=== PATIENT | male | born 1945 | race Caucasian/White ===

== ENCOUNTER 2017-07-13 03:07 | Emergency (ER) | payer OTHER ==
[2017-07-13] MEDS ORDERED: ASPIRIN 81 MG CHEWABLE TABLET ONE (04:06)
[2017-07-13 04:26] LABS: Absolute Lymphocytes (CBC) 1.7 K/uL (0.7-4.9); Absolute Monocytes 0.8 K/uL (0.1-1.3); Absolute Neutrophil 5.9 K/uL (1.8-8.0); Basophils % 0.5 % (0-1.3); Hematocrit 46.9 % (39.6-49.0); Lymphocytes % 19.9 % (15.3-44.8); MCH 32.5 pg (27.0-35.0); MCV 96.2 fL (80-100); MPV 9.9 fL (7.6-11.3); Monocytes % 9.1 % (3.3-12.3); RBC Red Blood Cell Count 4.87 M/uL (4.33-5.43)
[2017-07-13 04:34] LABS: Protime INR 0.94
[2017-07-13 04:46] LABS: Potassium 3.7 mEq/L (3.6-5.0)
[2017-07-13 04:53] LABS: Albumin 4.3 g/dL (3.2-5.5); Bilirubin Direct 0.1 mg/dL (0-0.2); Bilirubin Total 0.6 mg/dL (0.3-1.2); Magnesium 2.2 mg/dL (1.8-2.5); Protein, Total 6.8 g/dL (6.0-8.3)
[2017-07-13 04:56] LABS: CKMB Creatine Kinase MB 2.9 ng/ml (0.3-4.0)
--- NOTE | 2017-07-13 06:24 | ER ---
Nurse's Notes [facility] Name: Ranjit Seals Age: 72 yrs Sex: Male : 1945 Arrival Date: 07/13/2017 Time: 03:13 Bed 20 Private MD: Diagnosis: Chest pain Presentation: 07/13 03:31 Presenting complaint: Patient states: he is having chest pain and discomfort since bb approx 2200 last night has past history of [place] and bypass surgery so wanted to get checked out. Transition of care: patient was not received from another setting of care. Onset of symptoms was July 12, 2017. Care prior to arrival: None. 03:31 Method Of Arrival: Ambulatory bb 03:31 Acuity: HAILEY 2 bb Triage Assessment: 06:43 General: Appears in no apparent distress. Behavior is calm, cooperative, appropriate lk1 for age. Pain: Complains of pain in chest. Historical: - Allergies: 03:34 No Known Allergies; bb - Home Meds: 03:34 aspirin 81 mg Oral chew 1 tab once daily [Active]; Crestor oral oral [Active]; bb clopidogrel 75 mg oral tab 1 tab once daily [Active]; - PMHx: 03:34 Myocardial infarction; CAD; bb - PSHx: 03:34 Heart stents; shoulder surgery; Knee surgery; triple bypass; Tonsillectomy; bb - Immunization history:: Adult Immunizations unknown, Flu vaccine is up to date. - Social history:: Smoking status: Patient/guardian denies using tobacco. Screenin:45 Abuse screen: Denies threats or abuse. Denies injuries from another. Nutritional lk1 screening: No deficits noted. Tuberculosis screening: No symptoms or risk factors identified. Fall Risk None identified. Assessment: 03:42 Pain: Complains of pain in diaphragm Pain does not radiate. Pain currently is 7 out of lk1 10 on a pain scale. Quality of pain is described as aching, pressure, Pain began 2-3 days ago. Neuro: Level of Consciousness is awake, alert, obeys commands, Oriented to person, place, time, situation. Cardiovascular: Heart tones S1 S2 present Capillary refill is brisk Patient's skin is warm and dry. Respiratory: Airway is patent Respiratory effort is even, unlabored, Respiratory pattern is regular, symmetrical, Breath sounds are clear bilaterally. GI: Abdomen is non-distended, Bowel sounds present X 4 quads. : No signs and/or symptoms were reported regarding the genitourinary system. EENT: No signs and/or symptoms were reported regarding the EENT system. Derm: No signs and/or symptoms reported regarding the dermatologic system. 04:30 Reassessment: Patient and/or family updated on plan of care and expected duration. Pain lk1 level reassessed. Patient is alert, oriented x 3, equal unlabored respirations, skin warm/dry/pink. Patient states feeling better. Patient states symptoms have improved. Vital Signs: 03:34 BP 173 / 88; Pulse 84; Resp 12 S; Temp 97.7(O); Pulse Ox 98% on R/A; Weight 65.77 kg bb (R); Height 5 ft. 6 in. (167.64 cm) (R); Pain 7/10; 04:00 BP 144 / 74; Pulse 61; Resp 14; Pulse Ox 97% on R/A; lk1 05:00 BP 134 / 83; Pulse 58; Resp 12; Pulse Ox 96% on R/A; lk1 06:00 BP 136 / 73; Pulse 55; Resp 14; Pulse Ox 95% on R/A; lk1 03:34 Body Mass Index 23.40 (65.77 kg, 167.64 cm) bb ED Course: 03:13 Patient arrived in ED. al2 03:31 Andres Layne MD is Attending Physician. pkl 03:32 Triage completed. bb 03:34 Hilary Carranza, RN is Primary Nurse. lk1 03:34 Arm band placed on Patient placed in an exam room, on a stretcher, on air sampling and monitoring, bb on pulse oximetry. EKG completed in triage. Results shown to MD. Family accompanied patient. 03:45 Patient has correct armband on for positive identification. Placed in gown. Bed in low lk1 position. Call light in reach. Side rails up X2. Adult w/ patient. quality assurance monitor on. Pulse ox on. NIBP on. 03:45 Inserted saline lock: 22 gauge in right forearm, using aseptic technique. Patient lk1 maintains SpO2 saturation greater than 95% on room air. 05:30 Assisted to bathroom. lk1 06:42 No provider procedures requiring assistance completed. IV discontinued, intact, lk1 bleeding controlled, No redness/swelling at site. Pressure dressing applied. Administered Medications: 03:45 Drug: Aspirin 162 mg Route: PO; lk1 04:10 Follow up: Response: No adverse reaction lk1 Outcome: 06:24 Discharge ordered by . elliot 06:43 Discharged to home ambulatory, with significant other. lk1 06:43 Condition: good 06:43 Discharge instructions given to patient, significant other, Instructed on discharge instructions, follow up and referral plans. medication usage, safety practices, Demonstrated understanding of instructions, follow-up care, medications. 06:43 Patient left the ED. lk1 Signatures: Andres Layne MD MD pkl Ballard, Brenda, RN RN Hilary Khan RN RN lk1 Radha Stevens
--- NOTE | 2017-07-13 06:25 | EDPHYS ---
Physician Documentation [facility] Name: Ranjit Seals Age: 72 yrs Sex: Male : 1945 Arrival Date: 07/13/2017 Time: 03:13 Bed 20 Private MD: ED Physician Andres Layne HPI: 07/13 03:41 This 72 yrs old Male presents to ER via Ambulatory with complaints of Chest pkl Pain. 03:41 The patient or guardian reports chest pain that is located primarily in the substernal pkl area, epigastric area. Onset: just prior to arrival, 6 hour(s) ago. The pain does not radiate. Associated signs and symptoms: Pertinent positives: diaphoresis. The chest pain is described as a pressure. Historical: - Allergies: 03:34 No Known Allergies; bb - Home Meds: 03:34 aspirin 81 mg Oral chew 1 tab once daily [Active]; Crestor oral oral [Active]; bb clopidogrel 75 mg oral tab 1 tab once daily [Active]; - PMHx: 03:34 Myocardial infarction; CAD; bb - PSHx: 03:34 Heart stents; shoulder surgery; Knee surgery; triple bypass; Tonsillectomy; bb - Immunization history:: Adult Immunizations unknown, Flu vaccine is up to date. - Social history:: Smoking status: Patient/guardian denies using tobacco. ROS: 03:41 Eyes: Negative for injury, pain, redness, and discharge, ENT: Negative for injury, pkl pain, and discharge, Neck: Negative for injury, pain, and swelling. 03:41 Cardiovascular: Positive for chest pain. 03:41 Respiratory: Negative for cough, shortness of breath. 03:41 Abdomen/GI: Negative for nausea, vomiting, and diarrhea. 03:41 Back: Negative for acute changes. 03:41 : Negative for urinary symptoms. 03:41 MS/extremity: Negative for acute changes. 03:41 Skin: Positive for diaphoresis. 03:41 Neuro: Negative for altered mental status. Exam: 03:41 Head/Face: Normocephalic, atraumatic. Eyes: Pupils equal round and reactive to light, pkl extra-ocular motions intact. Lids and lashes normal. Conjunctiva and sclera are non-icteric and not injected. Cornea within normal limits. Periorbital areas with no swelling, redness, or edema. ENT: Nares patent. No nasal discharge, no septal abnormalities noted. Tympanic membranes are normal and external auditory canals are clear. Oropharynx with no redness, swelling, or masses, exudates, or evidence of obstruction, uvula midline. Mucous membranes moist. Neck: Trachea midline, no thyromegaly or masses palpated, and no cervical lymphadenopathy. Supple, full range of motion without nuchal rigidity, or vertebral point tenderness. No Meningismus. Chest/axilla: Normal chest wall appearance and motion. Nontender with no deformity. No lesions are appreciated. Cardiovascular: Regular rate and rhythm with a normal S1 and S2. No gallops, murmurs, or rubs. Normal PMI, no JVD. No pulse deficits. Respiratory: Lungs have equal breath sounds bilaterally, clear to auscultation and percussion. No rales, rhonchi or wheezes noted. No increased work of breathing, no retractions or nasal flaring. Abdomen/GI: Soft, non-tender, with normal bowel sounds. No distension or tympany. No guarding or rebound. No evidence of tenderness throughout. Back: No spinal tenderness. No costovertebral tenderness. Full range of motion. Skin: Warm, dry with normal turgor. Normal color with no rashes, no lesions, and no evidence of cellulitis. MS/ Extremity: Pulses equal, no cyanosis. Neurovascular intact. Full, normal range of motion. Neuro: Awake and alert, GCS 15, oriented to person, place, time, and situation. Cranial nerves II-XII grossly intact. Motor strength 5/5 in all extremities. Sensory grossly intact. Cerebellar exam normal. Normal gait. Vital Signs: 03:34 BP 173 / 88; Pulse 84; Resp 12 S; Temp 97.7(O); Pulse Ox 98% on R/A; Weight 65.77 kg bb (R); Height 5 ft. 6 in. (167.64 cm) (R); Pain 7/10; 04:00 BP 144 / 74; Pulse 61; Resp 14; Pulse Ox 97% on R/A; lk1 05:00 BP 134 / 83; Pulse 58; Resp 12; Pulse Ox 96% on R/A; lk1 06:00 BP 136 / 73; Pulse 55; Resp 14; Pulse Ox 95% on R/A; lk1 03:34 Body Mass Index 23.40 (65.77 kg, 167.64 cm) bb MDM: 03:31 Patient medically screened. pkl 06:23 Data reviewed: vital signs, nurses notes, lab test result(s), EKG, radiologic studies, pkl plain films. 06:24 ED course: Patient feeling better. Asymptomatic. Does not b want to be admitted for pkl further evaluations. Will follow up with Dr. Frank in 2 to 3 days.. 07/13 03:34 Order name: Basic Metabolic Panel [facility] 07/13 03:34 Order name: BNP [facility] 07/13 03:34 Order name: CBC with Diff [facility] 07/13 03:34 Order name: Ckmb [facility] 07/13 03:34 Order name: CPK [facility] 07/13 03:34 Order name: LFT's [facility] 07/13 03:34 Order name: Magnesium [facility] 07/13 03:34 Order name: PT-INR [facility] 07/13 03:34 Order name: Ptt, Activated [facility] 07/13 03:34 Order name: Troponin (emerg Dept Use Only) [facility] 07/13 04:30 Order name: CBC with Automated Diff; Complete Time: 05:36 EDMS 07/13 04:40 Order name: Protime (+INR); Complete Time: 05:36 EDMS 07/13 04:40 Order name: PTT, Activated Partial Thromb; Complete Time: 05:36 EDMS 07/13 04:47 Order name: Basic Metabolic Panel; Complete Time: 05:36 EDMS 07/13 03:34 Order name: XRAY Chest (1 view) [facility] 07/13 03:34 Order name: EKG; Complete Time: 04:05 07/13 03:34 Order name: Cardiac monitoring; Complete Time: 03:46 [facility] 07/13 03:34 Order name: EKG - Nurse/Tech; Complete Time: 03:46 [facility] 07/13 03:34 Order name: IV Saline Lock; Complete Time: 03:46 07/13 03:34 Order name: Labs collected and sent; Complete Time: 03:46 [facility] 07/13 04:47 Order name: Troponin (Emerg Dept Use Only); Complete Time: 05:36 EDMS 07/13 04:53 Order name: Liver (Hepatic) Function; Complete Time: 05:36 EDMS 07/13 04:53 Order name: Creatine Phosphokinase; Complete Time: 05:36 EDMS 07/13 04:53 Order name: Magnesium; Complete Time: 05:36 EDMS 07/13 04:56 Order name: CKMB Creatine Kinase MB; Complete Time: 05:36 EDMS 07/13 05:11 Order name: BNP B-Type Natriuretic Peptide; Complete Time: 05:36 EDMS 07/13 05:40 Order name: EKG; Complete Time: 05:41 pkl 07/13 05:40 Order name: Troponin (emerg Dept Use Only) pkl 07/13 06:19 Order name: Troponin (Emerg Dept Use Only); Complete Time: 06:21 EDMS 07/13 03:34 Order name: O2 Per Protocol; Complete Time: 03:46 lk1 07/13 03:34 Order name: O2 Sat Monitoring; Complete Time: 03:46 lk1 Administered Medications: 03:45 Drug: Aspirin 162 mg Route: PO; lk1 04:10 Follow up: Response: No adverse reaction lk1 Disposition: 07/13/17 06:24 Discharged to Home. Impression: Chest pain. - Condition is Stable. - Medication Reconciliation Form, Thank You Letter, Antibiotic Education, Prescription Opioid Use form. - Follow up: Private Physician; When: 2 - 3 days; Reason: Re-evaluation by your physician. - Problem is new. - Symptoms are resolved. Signatures: Dispatcher [employer] [facility] Andres Layne MD MD pkl Ballard, Brenda, RN RN bb Kluge, Leah, RN RN lk1
[2017-07-13 07:01] VITALS: TEMP 97.7
[2017-07-13 07:04] VITALS: BP 136/73; O2SAT 95
--- NOTE | 2017-07-13 08:09 | EKG ---
Test Date: 2017-07-13 Test Time: 03:24:21 [employer]: JOY MEASUREMENT RESULTS: Intervals: Rate: 81 CO: 204 QRSD: 108 QT: 390 QTc: 453 [place]: P: 65 CO: 204 QRS: -21 T: 102 INTERPRETIVE STATEMENTS: Normal sinus rhythm T wave abnormality, consider lateral ischemia Abnormal ECG Compared to ECG 06/30/2013 07:38:12 T-wave abnormality now present Possible ischemia now present Myocardial infarct finding no longer present Electronically Signed On 07-13-17 08:08:18 CDT by Irvin Vázquez
--- NOTE | 2017-07-29 11:28 | RAD REPORT ---
EXAM DESCRIPTION: RAD - Chest Single View - 07/16/2017 12:20 pm CLINICAL HISTORY: Chest pain. COMPARISON: 10/19/2013 FINDINGS: Portable technique limits examination quality. The lungs are grossly clear. The heart is upper limit normal in size with changes of a prior CABG not ed. No displaced fractures.Evidence of previous right rotator cuff repair. IMPRESSION: No acute intrathoracic process suspected.
== END 2017-07-13 06:43 | disposition home or self-care (01) ==
LOC: ER 03:07
DX: R07.9 Chest pain, unspecified (principal); I25.2 Old myocardial infarction; I25.10 Atherosclerotic heart disease of native coronary artery without angina pectoris; Z95.818 Presence of other cardiac implants and grafts; Z79.82 Long term (current) use of aspirin
CPT/HCPCS: 36415; 71045; 80048; 80076; 82550; 82553; 83735; 83880; 84484; 85025; 85610; 85730; 93005; 99285

== ENCOUNTER 2018-01-30 06:22 | Day surgery (SDC) | payer OTHER ==
[2018-01-29 10:54] LABS: Absolute Lymphocytes (CBC) 1.3 K/uL (0.7-4.9); Absolute Monocytes 0.7 K/uL (0.1-1.3); Absolute Neutrophil 7.5 K/uL (1.8-8.0); Basophils % 0.4 % (0-1.3); Eosinophils % 1.7 % (0-4.4); Hematocrit 49.9 % (39.6-49.0); Lymphocytes % 13.1 % (15.3-44.8); MCH 33.8 pg (27.0-35.0); MCV 96.3 fL (80-100); MPV 9.6 fL (7.6-11.3); RBC Red Blood Cell Count 5.17 M/uL (4.33-5.43)
[2018-01-29 11:10] LABS: Protime INR 1.01
[2018-01-29 11:12] LABS: Potassium 4.1 mmol/L (3.5-5.1)
--- NOTE | 2018-01-29 11:41 | RAD REPORT ---
EXAM DESCRIPTION: RAD - Chest Pa And Lat (2 Views) - 01/29/2018 10:47 am CLINICAL HISTORY: Preop chest, pending cardiac catheterization COMPARISON: June 2017 TECHNIQUE: PA and lateral views of the chest were obtained. FINDINGS: The lungs are clear. Scarring changes are present along the left heart border related to prior bypass. Sternotomy wires are in place. Heart size is normal and central vasculature is within n ormal limits. No pleural effusion or pneumothorax seen. No acute bony finding noted. No aortic abn ormality. IMPRESSION: No acute cardiopulmonary process. No significant interval changes.
--- OUTSIDE RECORDS SUMMARY | 2018-01-30 06:24 | XMS REPORT | Clinical Summary ---
:1945 Author Organization [facility] Address [address] [place] [address] Phone Care Team Providers Name Role Phone Unavailable Primary Care Provider Unavailable Allergies No Known Allergies Current Medications Not on file Active Problems Not on file Social History Tobacco Use Types Packs/Day Years Used Date Never Assessed Sex Assigned at Date Recorded Not on file Last Filed Vital Signs Not on file Plan of Treatment Not on file Results Not on fileafter 01/29/2017
[2018-01-30] MEDS ORDERED: NA CHLORIDE 0.9% 500 ML ONE (06:37)
[2018-01-30] MEDS ORDERED: LIDOCAINE 1% MPF 30 ML VIAL ONE (06:37)
[2018-01-30] MEDS ORDERED: HEPA 1000U/500MLS 2,000 UNIT/1,000 ML BAG IV ONE (06:37)
[2018-01-30] MEDS ORDERED: NA CHLORIDE 0.9% 0 ML ONE (07:33)
[2018-01-30] MEDS ORDERED: MIDAZOLAM HCL 2 MG/2 ML INJ ONE (07:33)
[2018-01-30] MEDS ORDERED: FENTANYL CITR 100 MCG/2 ML ONE (07:33)
[2018-01-30] MEDS ORDERED: ATROPINE SULF 1 MG/10 ML SYR IV ONE (07:33)
[2018-01-30 12:40] VITALS: O2SAT 98
--- NOTE | 2018-01-30 13:16 | OP ---
Surgeon: Jesu Frank MD Mica Machine Operator: Addis Linton. Indications: Mr. Seals is a patient of 72 years old admitted because of unstable angina and recent abnormal stress test. Has a history of bypass, status post LOREDO to the LAD, vein graft to the OM an d the PDA off the RCA. He was admitted as an outpatient to the laborer livestock, prepped and draped in the r outine sterile fashion. Procedures Performed: Left heart catheterization selective coronary arteriogram, vein graft injectio n, LOREDO injection, aortic root injection. Procedure In Detail: The patient was prepped and draped in the routine sterile fashion. Given 2 mg of Versed for IV sedation. 6-Micronesian sheath introduced in the right common femoral artery. StarClose was used to close the case. 6-Micronesian catheters were used to do the diagnostic catheterization. The patient was found to have a 40% proximal LAD and total occlusion of the circumflex from the ostium. He had a total occlusion of his RCA proximally. Aortic root was done to locate the graft after mult iple attempts to cannulate the graft. The aortic root was normal. There was evidence of an RCA anastasiia t that was eventually cannulated with a 3DRC and was small, but was patent. His OM graft was occlude d. The LOREDO to the LAD was patent. There were no complications. Blood Loss: 5 cc. Postoperative Diagnosis: Severe coronary artery disease. Plan: Medical therapy. I am going to add Imdur to his regimen. NATHALIE/MORENITA Voice ID: [id number] Report ID: [id number]
[2018-01-30 14:50] VITALS: BP 120/78; TEMP 98
== END 2018-01-30 14:40 | disposition home or self-care (01) ==
LOC: CCL 06:22
DX: I25.110 Atherosclerotic heart disease of native coronary artery with unstable angina pectoris (principal); I25.700 Atherosclerosis of coronary artery bypass graft(s), unspecified, with unstable angina pectoris; I25.82 Chronic total occlusion of coronary artery; I25.5 Ischemic cardiomyopathy; I65.8 Occlusion and stenosis of other precerebral arteries; I10 Essential (primary) hypertension; E78.6 Lipoprotein deficiency; E11.9 Type 2 diabetes mellitus without complications; K21.9 Gastro-esophageal reflux disease without esophagitis; Z95.5 Presence of coronary angioplasty implant and graft; Z82.49 Family history of ischemic heart disease and other diseases of the circulatory system
CPT/HCPCS: 36415; 71046; 80048; 82962 ×2; 85025; 85610; 85730; 93455; 93567; C1760; C1893; J2250; J3010; 93454; J0583

== ENCOUNTER 2018-11-14 18:51 | Emergency (ER) | payer OTHER ==
--- OUTSIDE RECORDS SUMMARY | 2018-11-14 18:52 | XMS REPORT | Clinical Summary ---
:1945 Author Organization [facility] Address [address] [place] [address] Care Team Providers Name Role Phone Unavailable Primary Care Provider Unavailable Allergies No Known Allergies Medications Not on file Active Problems Not on file Social History Tobacco Use Types Packs/Day Years Used Date Never Assessed Sex Assigned at Date Recorded Not on file Job Start Date Occupation Industry Not on file Not on file Not on file Travel History Travel Start Travel End No recent travel history available. Last Filed Vital Signs Not on file Plan of Treatment Not on file Results Not on fileafter 11/13/2017 Insurance Payer Benefit Plan / Subscriber ID Type Phone Address Group [employer] - MEDICARE A[employer] MEDICARE O xxxxxxxx [phone] [address] [place] [id number]
[2018-11-14] MEDS ORDERED: METHYLPREDNISOLONE 125 MG INJ ONE (19:16)
[2018-11-14] MEDS ORDERED: NA CHLORIDE 0.9% 500 ML ONE (19:16)
[2018-11-14] MEDS ORDERED: FAMOTIDINE 20 MG/2 ML VIAL IV ONE (19:17)
--- NOTE | 2018-11-14 20:07 | ER ---
Nurse's Notes [facility] Name: Ranjit Seals Age: 73 yrs Sex: Male : 1945 Arrival Date: 11/14/2018 Time: 18:52 Bed 18 Private MD: Megan Sumner H Diagnosis: Bee allergy status;Urticaria Presentation: 11/14 18:57 Presenting complaint: Patient states: "I was mowing the yard and I got stung by bees". aa5 Hives noted to chest, back, and left axillae. 18:57 Acuity: HAILEY 3 aa5 19:02 Transition of care: patient was not received from another setting of care. Onset: The tw2 symptoms/episode began/occurred acutely. Anaphylaxis evaluation, the patient reports or I have noted the following symptoms which indicate a significant risk of anaphylaxis: angioedema shortness of breath. Onset of symptoms was November 14, 2018. Risk Assessment: Do you want to hurt yourself or someone else? Patient reports no desire to harm self or others. 19:02 Method Of Arrival: Ambulatory tw2 19:05 Care prior to arrival: Medication(s) given: benadryl 100 mg. rr5 19:05 Initial Sepsis Screen: Does the patient meet any 2 criteria? No. Patient's initial rr5 sepsis screen is negative. Does the patient have a suspected source of infection? No. Patient's initial sepsis screen is negative. Historical: - Allergies: 19:01 No Known Allergies; tw2 - Home Meds: 19:01 Crestor Oral [Active]; clopidogrel 75 mg Oral tab 1 tab once daily [Active]; aspirin 81 tw2 mg Oral chew 1 tab once daily [Active]; 19:23 isosorbide dinitrate 20 mg Oral tab [Active]; potassium chloride 20 mEq Oral TbTQ rr5 [Active]; furosemide 40 mg Oral tab [Active]; rosuvastatin oral oral [Active]; Prevacid Oral [Active]; Metformin Oral [Active]; glimepiride 2 mg Oral tab [Active]; - PMHx: 19:01 CAD; Myocardial infarction; tw2 19:23 Diabetes - NIDDM; rr5 - PSHx: 19:01 shoulder surgery; Knee surgery; triple bypass; Heart stents; Tonsillectomy; tw2 - Immunization history:: Adult Immunizations. - Social history:: Smoking status: . - Ebola Screening: : Patient denies travel to an Ebola-affected area in the 21 days before illness onset. Screenin:54 Abuse screen: Denies threats or abuse. Nutritional screening: No deficits noted. tw2 Tuberculosis screening: No symptoms or risk factors identified. Fall Risk Secondary diagnosis (15 points) impaired mobility. Assessment: 19:05 General: Appears in no apparent distress. comfortable, Behavior is calm, cooperative, rr5 appropriate for age. Pain: Complains of pain in head Pain does not radiate. Pain currently is 4 out of 10 on a pain scale. Quality of pain is described as aching, Pain began gradually, Is intermittent. Neuro: Level of Consciousness is awake, alert, obeys commands, Oriented to person, place, time, situation, Appropriate for age. Cardiovascular: Capillary refill < 3 seconds Patient's skin is warm and dry. Respiratory: Reports like a lump in my thorat Airway is patent Respiratory effort is even, unlabored, Respiratory pattern is regular, symmetrical, Breath sounds are clear Denies shortness of breath. GI: Abdomen is flat, non-distended. : No signs and/or symptoms were reported regarding the genitourinary system. EENT: No signs and/or symptoms were reported regarding the EENT system. Derm: Rash noted that is on back, chest and abdomen hives. Musculoskeletal: Circulation, motion, and sensation intact. Capillary refill < 3 seconds, Range of motion: intact in all extremities. 19:50 Reassessment: Patient appears in no apparent distress at this time. Patient and/or rr5 family updated on plan of care and expected duration. Pain level reassessed. Patient is alert, oriented x 3, equal unlabored respirations, skin warm/dry/pink. 20:20 Reassessment: Patient appears in no apparent distress at this time. Patient is alert, rr5 oriented x 3, equal unlabored respirations, skin warm/dry/pink. discharge instruction given and explained without complaints made. hives subsided. Patient states feeling better. Patient states symptoms have improved. Vital Signs: 18:57 Pulse Ox 96% on R/A; aa5 19:05 BP 153 / 102; Pulse 81; Resp 18; Temp 98.2; Pulse Ox 98% ; Weight 63.5 kg; Height 5 ft. rr5 7 in. (170.18 cm); 19:05 Pain 4/10; rr5 20:20 BP 141 / 82; Pulse 80; Resp 16; Temp 98.5; Pulse Ox 99% on R/A; rr5 19:05 Body Mass Index 21.93 (63.50 kg, 170.18 cm) rr5 ED Course: 18:52 Patient arrived in ED. rg4 18:52 Megan Sumner DO is Private Physician. rg4 18:54 Yvonne Tavares FNP-C is [facility]. kb 18:54 Christiano Miramontes MD is Attending Physician. kb 18:55 Bed in low position. Call light in reach. Adult w/ patient. tw2 18:57 Triage completed. aa5 18:57 Arm band placed on Patient placed in an exam room, on a stretcher. aa5 19:03 Mike Hui, RN is Primary Nurse. rr5 19:10 Inserted saline lock: 20 gauge in right forearm, using aseptic technique. ag4 20:26 No provider procedures requiring assistance completed. IV discontinued, intact, rr5 bleeding controlled, No redness/swelling at site. Pressure dressing applied. Administered Medications: 19:10 Drug: NS 0.9% 500 ml Route: IV; Rate: bolus; Site: right forearm; rr5 20:10 Follow up: Response: No adverse reaction; IV Status: Completed infusion; IV Intake: rr5 500ml 19:11 Drug: Pepcid 20 mg Route: IVP; Site: right forearm; rr5 20:15 Follow up: Response: No adverse reaction rr5 19:12 Drug: SOLU-Medrol 125 mg Route: IVP; Site: right forearm; rr5 20:15 Follow up: Response: No adverse reaction rr5 Intake: 20:10 IV: 500ml; Total: 500ml. rr5 Outcome: 20:06 Discharge ordered by . kb 20:26 Discharged to home ambulatory, with family. rr5 20:26 Condition: stable 20:26 Discharge instructions given to patient, Instructed on discharge instructions, follow up and referral plans. medication usage, Demonstrated understanding of instructions, follow-up care, medications, Prescriptions given X 2. 20:29 Patient left the ED. rr5 Signatures: Yvonne Tavares FNP-C FNP-Ckb Calderon, Selina, RN RN aa5 Tania Kumar, RN RN tw2 Noris Chan rg4 Mike Hui, RN RN rr5 Alexei, Chase ag4
--- NOTE | 2018-11-14 20:07 | EDPHYS ---
Physician Documentation [facility] Name: Ranjit Seals Age: 73 yrs Sex: Male : 1945 Arrival Date: 11/14/2018 Time: 18:52 Bed 18 Private MD: Megan Sumner H ED Physician Christiano Miramontes HPI: 11/14 18:58 This 73 yrs old Male presents to ER via Unassigned with complaints of Bee kb Sting. 19:01 The patient presents with rash, of the back, shortness of breath, bee stings. Onset: kb The symptoms/episode began/occurred just prior to arrival. Associated signs and symptoms: Pertinent positives: hives, rash, shortness of breath. Possible causes: bees. At home the patient or guardian has treated the symptoms with Benadryl. Severity of symptoms: At their worst the symptoms were moderate in the emergency department the symptoms have improved. The patient has not experienced similar symptoms in the past. The patient has not recently seen a physician. Pt reports he was mowing someone's yard and bees came out of a tree and stung him multiple times. . Historical: - Allergies: 19:01 No Known Allergies; tw2 - Home Meds: 19:01 Crestor Oral [Active]; clopidogrel 75 mg Oral tab 1 tab once daily [Active]; aspirin 81 tw2 mg Oral chew 1 tab once daily [Active]; 19:23 isosorbide dinitrate 20 mg Oral tab [Active]; potassium chloride 20 mEq Oral TbTQ rr5 [Active]; furosemide 40 mg Oral tab [Active]; rosuvastatin oral oral [Active]; Prevacid Oral [Active]; Metformin Oral [Active]; glimepiride 2 mg Oral tab [Active]; - PMHx: 19:01 CAD; Myocardial infarction; tw2 19:23 Diabetes - NIDDM; rr5 - PSHx: 19:01 shoulder surgery; Knee surgery; triple bypass; Heart stents; Tonsillectomy; tw2 - Immunization history:: Adult Immunizations. - Social history:: Smoking status: . - Ebola Screening: : Patient denies travel to an Ebola-affected area in the 21 days before illness onset. ROS: 19:00 Constitutional: Negative for fever, chills, and weight loss, Cardiovascular: Negative kb for chest pain, palpitations, and edema, Abdomen/GI: Negative for abdominal pain, nausea, vomiting, diarrhea, and constipation, Back: Negative for injury and pain, MS/Extremity: Negative for injury and deformity, Neuro: Negative for headache, weakness, numbness, tingling, and seizure. 19:00 Respiratory: Positive for shortness of breath. 19:00 Skin: Positive for rash. Exam: 18:59 Constitutional: This is a well developed, well nourished patient who is awake, alert, kb and in no acute distress. Head/Face: Normocephalic, atraumatic. ENT: Nares patent. No nasal discharge, no septal abnormalities noted. Tympanic membranes are normal and external auditory canals are clear. Oropharynx with no redness, swelling, or masses, exudates, or evidence of obstruction, uvula midline. Mucous membranes moist. Neck: Trachea midline, no thyromegaly or masses palpated, and no cervical lymphadenopathy. Supple, full range of motion without nuchal rigidity, or vertebral point tenderness. No Meningismus. Chest/axilla: Normal chest wall appearance and motion. Nontender with no deformity. No lesions are appreciated. Cardiovascular: Regular rate and rhythm with a normal S1 and S2. No gallops, murmurs, or rubs. Normal PMI, no JVD. No pulse deficits. Respiratory: Lungs have equal breath sounds bilaterally, clear to auscultation and percussion. No rales, rhonchi or wheezes noted. No increased work of breathing, no retractions or nasal flaring. Abdomen/GI: Soft, non-tender, with normal bowel sounds. No distension or tympany. No guarding or rebound. No evidence of tenderness throughout. MS/ Extremity: Pulses equal, no cyanosis. Neurovascular intact. Full, normal range of motion. Neuro: Awake and alert, GCS 15, oriented to person, place, time, and situation. Cranial nerves II-XII grossly intact. Motor strength 5/5 in all extremities. Sensory grossly intact. Cerebellar exam normal. Normal gait. 18:59 Skin: consistent with urticaria, on the back. Vital Signs: 18:57 Pulse Ox 96% on R/A; aa5 19:05 BP 153 / 102; Pulse 81; Resp 18; Temp 98.2; Pulse Ox 98% ; Weight 63.5 kg; Height 5 ft. rr5 7 in. (170.18 cm); 19:05 Pain 4/10; rr5 20:20 BP 141 / 82; Pulse 80; Resp 16; Temp 98.5; Pulse Ox 99% on R/A; rr5 19:05 Body Mass Index 21.93 (63.50 kg, 170.18 cm) rr5 MDM: 18:54 Patient medically screened. kb 18:59 Data reviewed: vital signs, nurses notes. Data interpreted: Pulse oximetry: on room air kb is 96 %. Interpretation: normal. 20:05 Counseling: I had a detailed discussion with the patient and/or guardian regarding: the kb historical points, exam findings, and any diagnostic results supporting the discharge/admit diagnosis, the need for outpatient follow up, a family practitioner, to return to the emergency department if symptoms worsen or persist or if there are any questions or concerns that arise at home. ED course: symptoms resolved after treatment. No resp distress or complaints. Hives resolved. 11/14 18:58 Order name: IV Start; Complete Time: 19:10 kb Administered Medications: 19:10 Drug: NS 0.9% 500 ml Route: IV; Rate: bolus; Site: right forearm; rr5 20:10 Follow up: Response: No adverse reaction; IV Status: Completed infusion; IV Intake: rr5 500ml 19:11 Drug: Pepcid 20 mg Route: IVP; Site: right forearm; rr5 20:15 Follow up: Response: No adverse reaction rr5 19:12 Drug: SOLU-Medrol 125 mg Route: IVP; Site: right forearm; rr5 20:15 Follow up: Response: No adverse reaction rr5 Disposition: 11/15 18:48 Co-signature as Attending Physician, Christiano Miramontes MD. Disposition: 11/14/18 20:06 Discharged to Home. Impression: Bee allergy status, Urticaria. - Condition is Stable. - Discharge Instructions: Bee, Wasp, or Hornet Sting, Adult, Hives, [id number]. - Prescriptions for Pepcid 20 mg Oral Tablet - take 1 tablet by ORAL route every 12 hours for 5 days; 10 tablet. Prednisone 20 mg Oral Tablet - take 1 tablet by ORAL route once daily for 5 days; 5 tablet. - Medication Reconciliation Form, Thank You Letter, Antibiotic Education, Prescription Opioid Use form. - Follow up: Emergency Department; When: As needed; Reason: Worsening of condition. Follow up: Private Physician; When: 2 - 3 days; Reason: Recheck today's complaints, Continuance of care, Re-evaluation by your physician. Signatures: Yvonne Tavares, JOSE ALFREDO-C PROPERTY CONSULTANT-Tania Longoria RN RN tw2 Christiano Miramontes MD MD gs Mike Hui RN RN rr5 Corrections: (The following items were deleted from the chart) 11/14 20:29 20:06 11/14/2018 20:06 Discharged to Home. Impression: Bee allergy status; Urticaria. rr5 Condition is Stable. Forms are Medication Reconciliation Form, Thank You Letter, Antibiotic Education, Prescription Opioid Use. Follow up: Emergency Department; When: As needed; Reason: Worsening of condition. Follow up: Private Physician; When: 2 - 3 days; Reason: Recheck today's complaints, Continuance of care, Re-evaluation by your physician. kb
[2018-11-14 22:37] VITALS: BP 141/82; TEMP 98.5; O2SAT 99
== END 2018-11-14 20:29 | disposition home or self-care (01) ==
LOC: ER 18:51
DX: L50.9 Urticaria, unspecified (principal); W57.XXXA Bitten or stung by nonvenomous insect and other nonvenomous arthropods, initial encounter; Y93.89 Activity, other specified; Y92.89 Other specified places as the place of occurrence of the external cause; Z91.030 Bee allergy status
CPT/HCPCS: 96361; 96375; 96374; 99283; J2930

== ENCOUNTER 2019-05-19 04:09 | Observation (INO) | payer OTHER ==
[2019-05-19] MEDS ORDERED: METRONIDAZOLE 500mg IVPB 500 MG/100 ML BAG IV ONE (04:48)
[2019-05-19] MEDS ORDERED: NA CHLORIDE 0.9% 250 ML ONE (04:48)
[2019-05-19] MEDS ORDERED: PANTOPRAZOLE 40 MG INJ ONE (04:48)
[2019-05-19] MEDS ORDERED: CIPROFLOXACIN 400mg IV 400 MG/200 ML BAG IV ONE (04:48)
[2019-05-19] MEDS ORDERED: NA CHLORIDE 0.9% 1,000 ML ONE (04:49)
--- NOTE | 2019-05-19 05:12 | ER ---
Nurse's Notes [facility] Name: Ranjit Seals Age: 74 yrs Sex: Male : 1945 Arrival Date: 05/19/2019 Time: 04:12 Bed 6 Private MD: Megan Sumner H Diagnosis: Gastrointestinal hemorrhage, unspecified-lower ;Abdominal tenderness;Type 2 diabetes mellitus;Diverticular disease of intestine;Diverticulosis of large intestine without perforation or abscess without bleeding Presentation: 05/19 04:29 Presenting complaint: Patient states: restroom yesterday evening 2030 had a loose stool dm5 with bright red blood, had 3 additional episodes of loose stool with increasing blood, burning in rectal area with abdominal pain rated at 5/10 at this time. Transition of care: patient was not received from another setting of care. Onset of symptoms was May 18, 2019. Initial Sepsis Screen: Does the patient meet any 2 criteria? No. Patient's initial sepsis screen is negative. Does the patient have a suspected source of infection? Yes: Acute abdominal pain. 04:29 Method Of Arrival: Ambulatory dm5 04:29 Acuity: HAILEY 3 dm5 05:00 Risk Assessment: Do you want to hurt yourself or someone else?. Care prior to arrival: ea None. Historical: - Allergies: 04:32 No Known Allergies; dm5 - PMHx: 04:32 CAD; Diabetes - NIDDM; Myocardial infarction; High Cholesterol; Hypertension; dm5 - PSHx: 04:32 Knee surgery; shoulder surgery; triple bypass; dm5 - Immunization history:: Adult Immunizations up to date. - Social history:: Smoking status: Patient denies any tobacco usage or history of. - Family history:: not pertinent. - Ebola Screening: : No symptoms or risks identified at this time. Screenin:35 Abuse screen: Denies threats or abuse. Nutritional screening: No deficits noted. ea Tuberculosis screening: No symptoms or risk factors identified. Fall Risk IV access (20 points). Assessment: 05:00 General: Appears in no apparent distress. Behavior is appropriate for age. Pain: ea Complains of pain in left lower quadrant and right lower quadrant. Neuro: Level of Consciousness is awake, alert, obeys commands, Oriented to person, place, time, situation. Cardiovascular: Patient's skin is warm and dry. Respiratory: Airway is patent Respiratory effort is even, unlabored, Respiratory pattern is regular, symmetrical. GI: Abdomen is non-distended, Bowel sounds present X 4 quads. Derm: Skin is pink, warm \\T\\ dry. 06:15 Reassessment: Patient and/or family updated on plan of care and expected duration. Pain ea level reassessed. Patient is alert, oriented x 3, equal unlabored respirations, skin warm/dry/pink. Pt taken to CT. 07:00 General: Appears in no apparent distress. Behavior is calm, cooperative. Neuro: Level rb1 of Consciousness is awake, alert, obeys commands, Oriented to person, place, time, situation. Respiratory: Airway is patent Respiratory effort is even, unlabored, Respiratory pattern is regular, symmetrical. Derm: Skin is pink, warm \\T\\ dry. 08:00 Reassessment: Patient appears in no apparent distress at this time. No changes from rb1 previously documented assessment. 09:00 Reassessment: Patient appears in no apparent distress at this time. Patient and/or rb1 family updated on plan of care and expected duration. Pain level reassessed. Patient is alert, oriented x 3, equal unlabored respirations, skin warm/dry/pink. 09:55 Reassessment: Patient appears in no apparent distress at this time. No changes from rb1 previously documented assessment. 10:01 Reassessment: Unable to give report at this time, Elisa, Portable Grinding Machine Operator stated, "The rb1 nurse is discharging a pt., can we give her five minutes.". 10:16 Reassessment: Called report to JEREMIE Guerin. Information from the SB[facility] was given. All rb1 questions asked and answered. Vital Signs: 04:32 BP 175 / 102; Pulse 75; Resp 18; Temp 97.7; Pulse Ox 100% on R/A; Weight 63.5 kg; dm5 Height 5 ft. 7 in. (170.18 cm); Pain 5/10; 05:00 BP 165 / 92; Pulse 73; Resp 18; Pulse Ox 100% on R/A; ea 06:00 BP 160 / 90; Pulse 80; Resp 18; Temp 97.8; Pulse Ox 100% ; ea 07:00 BP 152 / 83; Pulse 71; Resp 19; Pulse Ox 99% on R/A; rb1 08:00 BP 133 / 84; Pulse 75; Resp 17; Pulse Ox 100% on R/A; rb1 09:57 BP 120 / 72; Pulse 75; Resp 17; Pulse Ox 99% on R/A; rb1 04:32 Body Mass Index 21.93 (63.50 kg, 170.18 cm) dm5 ED Course: 04:12 Patient arrived in ED. es 04:13 Megan Sumner DO is Private Physician. es 04:29 Hans Fuller MD is Attending Physician. zabrina 04:31 Triage completed. dm5 04:32 Arm band placed on Patient placed in an exam room. dm5 04:42 Cheli Orantes RN is Primary Nurse. ea 04:53 XRAY Chest (1 view) In Process Unspecified. EDMS 05:00 Patient has correct armband on for positive identification. Placed in gown. Bed in low ea position. Call light in reach. Side rails up X2. 05:10 Shavonne Ramon MD is Hospitalizing Provider. zabrina 05:15 Inserted saline lock: 20 gauge in right forearm, using aseptic technique. Blood ea collected. 05:25 Radiology exam delayed due to Dropped off oral contrast for CT exam at 0445 but patient kw1 did not finish until 0515. 06:16 No provider procedures requiring assistance completed. Patient admitted, IV remains in ea place. Administered Medications: 05:20 Drug: NS 0.9% 500 ml Route: IV; Rate: bolus; Site: right forearm; ea 06:02 Follow up: Response: No adverse reaction; IV Status: Completed infusion ea 05:20 Drug: ProTONIX 40 mg Route: IVP; Site: right forearm; ea 06:03 Follow up: Response: No adverse reaction ea 05:26 Drug: Flagyl 500 mg Volume: 100 ml; Route: IVPB; Rate: 200 ml/hr; Infused Over: 30 ea mins; Site: right forearm; 05:32 Drug: Cipro 400 mg Volume: 200 ml; Route: IVPB; Infused Over: 60 mins; Site: right ea antecubital; 05:42 Drug: morphine 2 mg Route: IVP; Site: right antecubital; ea 05:42 Drug: Zofran 4 mg Route: IVP; Site: right forearm; ea 06:05 Follow up: Response: No adverse reaction; Nausea is decreased ea 05:54 Drug: NS 0.9% 1000 ml Route: IV; Rate: 125 ml/hr; Site: left forearm; ea 06:05 Follow up: IV Status: Infusion continued upon admission ea Outcome: 05:11 Decision to Hospitalize by Provider. zabrina 06:16 Instructed on the need for admit. ea 10:43 Patient left the ED. aa5 10:43 Admitted to Tele accompanied by tech, via stretcher, room 421, Report called to peter Guerin RN 10:43 Condition: stable Signatures: Dispatcher [employer] Corazon Finney, RN RN dm5 Hans Fuller MD MD cha Salyer, Edna es Calderon, Audri RN RN aa5 Whitley Castillo, RN RN rb1 Cheli Orantes RN RN Princess Reyes kw1
--- NOTE | 2019-05-19 05:12 | EDPHYS ---
Physician Documentation [facility] Name: Ranjit Seals Age: 74 yrs Sex: Male : 1945 Arrival Date: 05/19/2019 Time: 04:12 Bed 6 Private MD: Megan Sumner H ED Physician Hans Fuller HPI: 05/19 04:40 This 74 yrs old Male presents to ER via Ambulatory with complaints of Rectal zabrina Bleeding. 04:40 The patient presents to the emergency department with bleeding from the rectum/anus, zabrina that is moderate. Onset: The symptoms/episode began/occurred 2 day(s) ago. Context: the patient has no known special context relating to the rectal area complaint(s). Modifying factors: The symptoms are alleviated by nothing, The symptoms are aggravated by bowel movement. Associate signs and symptoms: The patient has no apparent associated signs or symptoms. The patient has not experienced similar symptoms in the past. Historical: - Allergies: 04:32 No Known Allergies; dm5 - PMHx: 04:32 CAD; Diabetes - NIDDM; Myocardial infarction; High Cholesterol; Hypertension; dm5 - PSHx: 04:32 Knee surgery; shoulder surgery; triple bypass; dm5 - Immunization history:: Adult Immunizations up to date. - Social history:: Smoking status: Patient denies any tobacco usage or history of. - Family history:: not pertinent. - Ebola Screening: : No symptoms or risks identified at this time. ROS: 04:40 Constitutional: Negative for fever, chills, and weight loss, Eyes: Negative for injury, zabrina pain, redness, and discharge, ENT: Negative for injury, pain, and discharge, Neck: Negative for injury, pain, and swelling, Cardiovascular: Negative for chest pain, palpitations, and edema, Respiratory: Negative for shortness of breath, cough, wheezing, and pleuritic chest pain, Back: Negative for injury and pain, : Negative for injury, bleeding, discharge, and swelling, MS/Extremity: Negative for injury and deformity, Skin: Negative for injury, rash, and discoloration, Neuro: Negative for headache, weakness, numbness, tingling, and seizure. 04:42 Psych: Negative for depression, anxiety, suicide ideation, homicidal ideation, and zabrina hallucinations, Allergy/Immunology: Negative for hives, rash, and allergies, Endocrine: Negative for neck swelling, polydipsia, polyuria, polyphagia, and marked weight changes, Hematologic/Lymphatic: Negative for swollen nodes, abnormal bleeding, and unusual bruising. 04:42 Abdomen/GI: Positive for abdominal pain, of the right lower quadrant and left lower quadrant. Exam: 04:42 Constitutional: This is a well developed, well nourished patient who is awake, alert, zabrina and in no acute distress. Head/Face: Normocephalic, atraumatic. Eyes: Pupils equal round and reactive to light, extra-ocular motions intact. Lids and lashes normal. Conjunctiva and sclera are non-icteric and not injected. Cornea within normal limits. Periorbital areas with no swelling, redness, or edema. ENT: Nares patent. No nasal discharge, no septal abnormalities noted. Tympanic membranes are normal and external auditory canals are clear. Oropharynx with no redness, swelling, or masses, exudates, or evidence of obstruction, uvula midline. Mucous membranes moist. Neck: Trachea midline, no thyromegaly or masses palpated, and no cervical lymphadenopathy. Supple, full range of motion without nuchal rigidity, or vertebral point tenderness. No Meningismus. Chest/axilla: Normal chest wall appearance and motion. Nontender with no deformity. No lesions are appreciated. Cardiovascular: Regular rate and rhythm with a normal S1 and S2. No gallops, murmurs, or rubs. Normal PMI, no JVD. No pulse deficits. Respiratory: Lungs have equal breath sounds bilaterally, clear to auscultation and percussion. No rales, rhonchi or wheezes noted. No increased work of breathing, no retractions or nasal flaring. Back: No spinal tenderness. No costovertebral tenderness. Full range of motion. Male : Normal genitalia with no discharge or lesions. Skin: Warm, dry with normal turgor. Normal color with no rashes, no lesions, and no evidence of cellulitis. MS/ Extremity: Pulses equal, no cyanosis. Neurovascular intact. Full, normal range of motion. Neuro: Awake and alert, GCS 15, oriented to person, place, time, and situation. Cranial nerves II-XII grossly intact. Motor strength 5/5 in all extremities. Sensory grossly intact. Cerebellar exam normal. Normal gait. Psych: Awake, alert, with orientation to person, place and time. Behavior, mood, and affect are within normal limits. 04:42 Abdomen/GI: Inspection: abdomen appears normal, Bowel sounds: normal, Liver: no appreciated palpable abnormalities, Hernia: not appreciated. 05:52 Abdomen/GI: Rectal exam: Prostate: normal, rectal tone normal, Stool: grossly bloody, zabrina guaiac positive, hemorrhoid(s), are not appreciated, mass, is not appreciated, swelling, is not appreciated, tenderness, is not appreciated, fecal impaction, is not appreciated. Vital Signs: 04:32 BP 175 / 102; Pulse 75; Resp 18; Temp 97.7; Pulse Ox 100% on R/A; Weight 63.5 kg; dm5 Height 5 ft. 7 in. (170.18 cm); Pain 5/10; 05:00 BP 165 / 92; Pulse 73; Resp 18; Pulse Ox 100% on R/A; ea 06:00 BP 160 / 90; Pulse 80; Resp 18; Temp 97.8; Pulse Ox 100% ; ea 07:00 BP 152 / 83; Pulse 71; Resp 19; Pulse Ox 99% on R/A; rb1 08:00 BP 133 / 84; Pulse 75; Resp 17; Pulse Ox 100% on R/A; rb1 09:57 BP 120 / 72; Pulse 75; Resp 17; Pulse Ox 99% on R/A; rb1 04:32 Body Mass Index 21.93 (63.50 kg, 170.18 cm) dm5 MDM: 04:29 Patient medically screened. [facility] 04:43 Data reviewed: vital signs, nurses notes, lab test result(s), EKG, radiologic studies, [facility] CT scan, plain films. 05/19 04:40 Order name: Basic Metabolic Panel [facility] 05/19 04:40 Order name: CBC with Diff; Complete Time: 05:44 [facility] 05/19 04:40 Order name: LFT's [facility] 05/19 04:40 Order name: Magnesium; Complete Time: 05:53 [facility] 05/19 04:40 Order name: NT PRO-BNP [facility] 05/19 04:40 Order name: PT-INR; Complete Time: 05:53 [facility] 05/19 04:40 Order name: Troponin (emerg Dept Use Only); Complete Time: 05:53 [facility] 05/19 04:40 Order name: Type And Screen [facility] 05/19 04:40 Order name: Urine Culture [facility] 05/19 04:41 Order name: Basic Metabolic Panel; Complete Time: 05:53 [facility] 05/19 04:41 Order name: Liver (Hepatic) Function; Complete Time: 05:53 [facility] 05/19 04:41 Order name: NT PRO-BNP; Complete Time: 05:53 [facility] 05/19 05:27 Order name: Urine Dipstick--Ancillary (enter results) [facility] 05/19 07:57 Order name: ABO/RH no charge [facility] 05/19 04:40 Order name: XRAY Chest (1 view) [facility] 05/19 04:40 Order name: EKG; Complete Time: 04:41 [facility] 05/19 04:40 Order name: Cardiac monitoring; Complete Time: 06:03 [facility] 05/19 04:40 Order name: EKG - Nurse/Tech; Complete Time: 06:03 [facility] 05/19 04:40 Order name: IV Saline Lock; Complete Time: 06:03 [facility] 05/19 04:40 Order name: Labs collected and sent; Complete Time: 06:03 [facility] 05/19 04:40 Order name: O2 Per Protocol; Complete Time: 06:03 [facility] 05/19 04:40 Order name: O2 Sat Monitoring; Complete Time: 06:04 [facility] 05/19 04:40 Order name: CT Abd/Pelvis - PO and IV Contrast [facility] 05/19 04:40 Order name: Urine Dipstick-Ancillary (obtain specimen); Complete Time: 06:19 [facility] Administered Medications: 05:20 Drug: NS 0.9% 500 ml Route: IV; Rate: bolus; Site: right forearm; ea 06:02 Follow up: Response: No adverse reaction; IV Status: Completed infusion ea 05:20 Drug: ProTONIX 40 mg Route: IVP; Site: right forearm; ea 06:03 Follow up: Response: No adverse reaction ea 05:26 Drug: Flagyl 500 mg Volume: 100 ml; Route: IVPB; Rate: 200 ml/hr; Infused Over: 30 ea mins; Site: right forearm; 05:32 Drug: Cipro 400 mg Volume: 200 ml; Route: IVPB; Infused Over: 60 mins; Site: right ea antecubital; 05:42 Drug: morphine 2 mg Route: IVP; Site: right antecubital; ea 05:42 Drug: Zofran 4 mg Route: IVP; Site: right forearm; ea 06:05 Follow up: Response: No adverse reaction; Nausea is decreased ea 05:54 Drug: NS 0.9% 1000 ml Route: IV; Rate: 125 ml/hr; Site: left forearm; ea 06:05 Follow up: IV Status: Infusion continued upon admission ea Disposition: 05/19/19 05:11 Hospitalization ordered by Shavonne Ramon for Inpatient Admission. Preliminary diagnosis are Gastrointestinal hemorrhage, unspecified - lower , Abdominal tenderness, Type 2 diabetes mellitus, Diverticular disease of intestine, Diverticulosis of large intestine without perforation or abscess without bleeding. - Bed requested for Telemetry/MedSurg (Inpatient). - Status is Inpatient Admission. aa5 - Condition is Fair. - Problem is new. - Symptoms have improved. UTI on Admission? No Signatures: Dispatcher [employer] EDMS Corazon Hernandez RN RN Reba Lopez RN Hans Johnston MD MD cha Calderon, Audri, RN RN [facility] Cheli Orantes RN RN ea Corrections: (The following items were deleted from the chart) 06:26 05:11 Hospitalization Ordered by Shavonne Ramon MD for Inpatient Admission. Preliminary mw diagnosis is Gastrointestinal hemorrhage, unspecified - lower ; Abdominal tenderness; Type 2 diabetes mellitus. Bed requested for Telemetry/MedSurg (Inpatient). Status is Inpatient Admission. Condition is Fair. Problem is new. Symptoms have improved. UTI on Admission? No. zabrina 07:16 06:26 05/19/2019 05:11 Hospitalization Ordered by Shavonne Ramon MD for Inpatient zabrina Admission. Preliminary diagnosis is Gastrointestinal hemorrhage, unspecified - lower ; Abdominal tenderness; Type 2 diabetes mellitus. Bed requested for Telemetry/MedSurg (Inpatient). Status is Inpatient Admission. Condition is Fair. Problem is new. Symptoms have improved. UTI on Admission? No. mw 10:43 07:16 05/19/2019 05:11 Hospitalization Ordered by Shavonne Ramon MD for Inpatient aa5 Admission. Preliminary diagnosis is Gastrointestinal hemorrhage, unspecified - lower ; Abdominal tenderness; Type 2 diabetes mellitus; Diverticular disease of intestine; Diverticulosis of large intestine without perforation or abscess without bleeding. Bed requested for Telemetry/MedSurg (Inpatient). Status is Inpatient Admission. Condition is Fair. Problem is new. Symptoms have improved. UTI on Admission? No. zabrina
[2019-05-19 05:43] LABS: Absolute Lymphocytes (CBC) 1.7 K/uL (0.7-4.9); Basophils % 0.5 % (0-1.3); Hematocrit 45.5 % (39.6-49.0); Lymphocytes % 21.4 % (15.3-44.8); MPV 9.3 fL (7.6-11.3); RBC Red Blood Cell Count 4.76 M/uL (4.33-5.43)
[2019-05-19] MEDS ORDERED: MORPHINE 4 MG/ML SYR ONE (05:43)
[2019-05-19] MEDS ORDERED: ONDANSETRON 4 MG/2 ML VIAL ONE (05:43)
[2019-05-19 05:44] LABS: ALT/SGPT 29 U/L (12-78); AST/SGOT 25 U/L (15-37); Albumin 3.7 g/dL (3.4-5.0); Alkaline Phosphatase 73 U/L (45-117); BUN Blood Urea Nitrogen 24 mg/dL (7-18); Bicarbonate 28 mmol/L (21-32); Bilirubin Direct 0.2 mg/dL (0-0.2); Bilirubin Total 0.5 mg/dL (0.2-1.0); Glucose Level 129 mg/dL (74-106); Magnesium 2.3 mg/dL (1.8-2.4); NT PRO-BNP 835 pg/mL (<450); Potassium 3.7 mmol/L (3.5-5.1); Protein, Total 6.6 g/dL (6.4-8.2); Sodium Level 141 mmol/L (136-145); Troponin (Emerg Dept Use Only) < 0.02 ng/mL (0.0-0.045)
[2019-05-19 05:45] LABS: Protime INR 0.96
[2019-05-19 06:07] LABS: Urine Blood NEGATIVE (NEG); Urine Glucose NEGATIVE (NEG); Urine Protein NEGATIVE (NEG)
--- NOTE | 2019-05-19 06:36 | P.HP ---
Patient History Date of Service: 05/19/19 Reason for admission: GI BLEED History of Present Illness: Ranjit sheridan is a 74yoM with pmhxof CAD s/p cabg, htn, dm, who presents w/ acute onset bloody stool starting yesterday in the evening. he reports using the toilet overnight due to taking his water pill overnight. he states that every time he has urinated he has also expelled bloody stools. he denies any similar past events. He is on antithrombin therapy for his hx of CAD. He noted that he felt as though he had indigestion and bloating. but denies abdominal pain, rectal pain or back pain. During evaluation pt is w/ his , currentlyon IVF and flagyl, laying supine in the gurney, conversational and w/o distresss. he denies SOB, CP, syncope, HATCH, fever, chills, rash, dizziness ,rashes, sores, he denies abd pain. he denies tobacco, etoh and drug use Allergies No Known Allergies Allergy (Verified 01/29/18 10:21) Home Medications: Aspirin 81 mg pe PO DAILY 06/28/13 Clopidogrel Bisulfate [Plavix*] 75 mg PO DAILY 06/28/13 Lansoprazole [Prevacid 24Hr] 15 mg PO DAILY 06/28/13 Tramadol HCl [Ultram] 50 mg PO TID 06/28/13 Carvedilol [Coreg] 12.5 mg PO BID 05/19/19 Furosemide 40 mg PO DAILY 05/19/19 Glimepiride [Amaryl] 2 mg PO DAILY 05/19/19 Isosorbide Dinitrate 30 mg PO DAILY 05/19/19 Lansoprazole [Prevacid] 15 mg PO DAILY 05/19/19 Potassium Chloride [Klor-Con] 20 meq PO DAILY 05/19/19 - Past Medical/Surgical History Diabetic: Yes -: hyperlipidemia -: HTN -: DE -: DM -: heart cath with 8 stents -: shoulder surgery -: knee surgery - Family History Mother -: Diabetes Father History Unknown: Yes -: Liver disease Notes: Liver cancer - Social History Alcohol use: No CD- Drugs: No Caffeine use: Yes Review of Systems General: As per HPI, Unremarkable Eyes: As per HPI ENT: As per HPI, Unremarkable Respiratory: As per HPI, Unremarkable Gastrointestinal: Distention, Hematochezia Genitourinary: Unremarkable Integumentary: Unremarkable Physical Examination - Physical Exam General: Alert, In no apparent distress, Oriented x3, Cooperative, Other (no distress, conversational, interactive, but appears weak. no tachycardia or hypotension. ) HEENT: Atraumatic, Other (no conjunctival pallor) Neck: Supple Respiratory: Clear to auscultation bilaterally, Normal air movement Cardiovascular: No edema, Normal pulses, No murmurs Capillary refill: >2 Seconds Gastrointestinal: Hypoactive (mild), No tenderness, No rebound, Other (mild distention) Musculoskeletal: No swelling Integumentary: Other (palmar paler) Neurological: Normal speech, Other (gait not tested) External genitalia: Deferred - Studies Laboratory Data (last 24 hrs) 05/19/19 05:15: PT 11.3, INR 0.96 05/19/19 05:15: WBC 8.1, Hgb 15.5, Hct 45.5, Plt Count 210 05/19/19 05:15: Sodium 141, Potassium 3.7, BUN 24 H, Creatinine 1.29, Glucose 129 H, Magnesium 2.3, Total Bilirubin 0.5, AST 25, ALT 29, Alkaline Phosphatase 73 Assessment and Plan - Plan 74yoM admitted w/ painless hematochezia - new onset/ lower GI monitor on tele, type and screen obtain tsh, a1c trend H/H on IVF and metronidazole in the ER. running on evaluation awaiting CT a/p per ED physician GI consulted from the ED to see pt per ED MD. CAD s/p CABG hold anti pltlt therapy - plavix will determine when can be restarted. - Advance Directives Does patient have a Living Will: Yes Does patient have a Durable POA for Healthcare: No
--- NOTE | 2019-05-19 07:59 | RAD REPORT ---
EXAM DESCRIPTION: Doug Single View05/19/2019 4:55 am CLINICAL HISTORY: Cough COMPARISON: 2018 FINDINGS: The lungs appear clear of acute infiltrate. The heart is normal size Postsurgical changes involve the chest. IMPRESSION: No acute abnormalities displayed
--- NOTE | 2019-05-19 10:57 | RAD REPORT ---
EXAM DESCRIPTION: CT - Abdomen Pelvis W Contrast - 05/19/2019 7:03 am CLINICAL HISTORY: The patient is 74 years old and is Male; ABD PAIN TECHNIQUE: Axial computed tomography images of the abdomen and pelvis with intravenous contrast. S agittal and coronal reformatted images were created and reviewed. This CT exam was performed using one or more of the following dose reduction techniques: automated exposure control, adjustment of t he mA and/or kV according to patient size, and/or use of iterative reconstruction technique. COMPARISON: No relevant prior studies available. FINDINGS: Lung bases: Unremarkable. No mass. No consolidation. ABDOMEN: Liver: Unremarkable. No mass. Gallbladder and bile ducts: Unremarkable. No calcified stones. No ductal dilation. Pancreas: Unremarkable. No mass. No ductal dilation. Spleen: Unremarkable. No splenomegaly. Adrenals: Unremarkable. No mass. Kidneys and ureters: Unremarkable. No solid mass. No hydronephrosis. Stomach and bowel: Colonic diverticulosis without evidence of diverticulitis. No obstruction. PELVIS: Appendix: No findings to suggest acute appendicitis. Bladder: Unremarkable. No mass. Reproductive: Unremarkable as visualized. ABDOMEN and PELVIS: Intraperitoneal space: Unremarkable. No free air. No significant fluid collection. Bones/joints: Bilateral L5 chronic pars defects with grade 1 anterolisthesis of L5 on S1. Marked disc height loss at L5-S1. No acute fracture. No dislocation. Soft tissues: Unremarkable. Vasculature: Scattered atherosclerotic vascular calcifications No abdominal aortic aneurysm. Lymph nodes: Unremarkable. No enlarged lymph nodes. IMPRESSION: 1. No acute intra-abdominal abnormality. 2. Colonic diverticulosis without evidence of diverticulitis. Electronically signed by: Matheus Beaver MD 05/19/2019 7:00 AM BLOCKMASON Due to temporary technical issues with the PACS/Fluency reporting system, reports are being signed by the in house radiologist as a courtesy to ensure prompt reporting. The interpreting radiologist is f ully responsible for the content of the report.
--- NOTE | 2019-05-19 11:25 | EKG ---
Test Date: 2019-05-19 Test Time: 05:07:38 Creative Services Director: RAKESH MEASUREMENT RESULTS: Intervals: Rate: 74 AR: 198 QRSD: 108 QT: 404 QTc: 448 [place]: P: 56 AR: 198 QRS: -20 T: 104 INTERPRETIVE STATEMENTS: Normal sinus rhythm Possible Left atrial enlargement Anterior infarct, age undetermined T wave abnormality, consider lateral ischemia Abnormal ECG Compared to ECG 07/13/2017 03:24:21 Myocardial infarct finding now present T-wave abnormality still present Possible ischemia still present Electronically Signed On 05-19-19 11:23:47 SENIOR DRUPAL DEVELOPER by Jesu Frank
[2019-05-19 11:39] VITALS: BMI 21.9
[2019-05-19] MEDS: METRONIDAZOLE 500mg IVPB 500 MG/100 ML BAG IV SCH (17:06)
--- NOTE | 2019-05-19 19:59 | PN ---
Date of Progress Note: 05/19/2019 Subjective: Patient is seen and examined. Chart reviewed and case discussed with RN and Dr. Frank and Dr. Mcmanus. Medications: List reviewed. Physical Examination: Vital Signs: Temperature 97.7, heart rate 69, blood pressure 130/60, respirations 18, O2 of 96% on r oom air. General: Awake, alert, and oriented x3, not in any acute distress, elderly male. CV: S1, S2. Respiratory: Clear to auscultation bilaterally. No wheezing. Gastrointestinal: Abdomen is soft. Mild tenderness to palpation in the left upper quadrant. Extremities: No clubbing, cyanosis, or edema. Neurologic: Nonfocal. Laboratory Data: WBC 8.1, H and H 15.5 and 45.5, platelets 210. Sodium 141, potassium 3.7, chloride 107, CO2 of 28, BUN 24, creatinine 1.29, glucose 129, calcium 8.6, magnesium 2.3. Assessment: A 74-year-old male with: 1.Bright red blood per rectum. Lower gastrointestinal bleed. GI has been consulted. We will hold Plavix, likely diverticular bleed. CT abdomen reviewed. 2.Coronary artery disease, status post coronary artery bypass graft. We will continue with home med ications. We will hold Plavix. 3.Hyperlipidemia. Continue statin. 4.Essential hypertension. We will resume home medications as appropriate. 5.Diabetes mellitus type 2, non-insulin requiring. We will continue with sliding scale insulin. 6.Deep vein thrombosis prophylaxis, SCDs. No chemical anticoagulation due to gastrointestinal bleed . Plan: Continue to monitor H and H, transfuse as needed. Cardiology consultation. /MODL Voice ID: [id number] Report ID: [id number]
[2019-05-19] MEDS: CIPROFLOXACIN 400mg IV 400 MG/200 ML BAG IV SCH (20:17)
--- NOTE | 2019-05-19 20:44 | CON ---
Date of Consultation: 05/19/2019 Reason For Consultation: Bright red blood per rectum with Plavix and aspirin therapy. History Of Present Illness: Mr. Seals is a 74-year-old white male very well known to me from [facility] office visit and admission. I have known him for more than 20 years. He has had a bypass surger y, LOREDO to the LAD, saphenous vein graft to the OM, and saphenous graft to the RCA. In January, catheterization showed the LOREDO to be open. His RCA graft was open, but it was small. Graft to the OM was completely occluded, so was circumflex. He had been treated medically successfully with a spirin, Plavix, Coreg, Lasix, Amaryl, Imdur, Prevacid, and potassium. Has not had any chest pain rec ently. Prior to his catheterization he had stents in the circumflex with bright red blood per rectum . CT of the abdomen showed diverticulosis, but no diverticulitis. Chest x-ray was negative. EKG sh owed old [place]. BNP is negative. No cardiac symptoms. Past Medical History: As stated above. He has diabetes, history of CABG, dyslipidemia, hypertension . He had chronic systolic congestive heart failure. He has gastroesophageal reflux disease as well. Review of Systems: Negative. Social History: Negative. Family History: Negative. Medications: Listed earlier. Physical Examination: General: He was pleasant, laughing, in no acute distress. Vital Signs: Stable. Afebrile. HEENT: Negative. Neck: Supple without any bruit, lymphadenopathy, JVD, or thyromegaly. Chest: Clear. Cardiac: Revealed a regular rhythm and rate with aortic sclerosis, murmur, but no gallops or rubs. Abdomen: Benign. Extremities: Revealed no clubbing, cyanosis, or edema. Diagnostic Data: Listed earlier. His hemoglobin is 15. Impression And Plan: Mr. Seals has had coronary artery disease for many, many years. I feel comfo rtable with him stopping the Plavix. I would continue the aspirin for now until the colonoscopy is d one by Dr. Mcmanus. I will keep him off Plavix, but I would like him to continue on aspirin indefin itely. He can certainly hold it for the colonoscopy. He is not having any cardiac symptoms and I wi ll continue his other regimen including the Lasix, Amaryl, Imdur, Coreg, Prevacid, and potassium. Hi s blood pressure is well controlled. His cholesterol is well controlled. His coronary artery diseas e is stable. His diabetes is well controlled. He has chronic systolic congestive heart failure with ejection fraction about 45% in the office by recent echo. He is not having any CHF symptoms and gas troesophageal reflux disease is well controlled. I am comfortable with him going home. He further d oes not need any workup immediately. He can have his colonoscopy as an outpatient. I will see him i n the office soon. NATHALIE/MORENITA Voice ID: [id number] Report ID: [id number]
[2019-05-20] MEDS: METRONIDAZOLE 500mg IVPB 500 MG/100 ML BAG IV SCH ×2 (00:04→07:31)
[2019-05-20 07:33] VITALS: O2SAT 98
[2019-05-20 07:50] LABS: Absolute Lymphocytes (CBC) 1.6 K/uL (0.7-4.9); Basophils % 0.5 % (0-1.3); Hematocrit 44.8 % (39.6-49.0); Lymphocytes % 17.9 % (15.3-44.8); MPV 9.2 fL (7.6-11.3)
[2019-05-20 08:07] LABS: Potassium 4.3 mmol/L (3.5-5.1)
[2019-05-20] MEDS: CIPROFLOXACIN 400mg IV 400 MG/200 ML BAG IV SCH (08:11)
[2019-05-20 08:18] VITALS: BP 119/67; TEMP 97.4
[2019-05-20] MEDS ORDERED: TRAMADOL HCL 50 MG TAB PO SCH (09:00)
[2019-05-20] MEDS ORDERED: HOME MED 1 EA UNK (Isosorbide Dinitrate [Isosorbide Dinitrate] 30 MG) PO SCH (09:00)
[2019-05-20] MEDS ORDERED: FUROSEMIDE 40 MG TABLET PO SCH (09:00)
[2019-05-20] MEDS ORDERED: POTASSIUM CL SA 10 MEQ TAB PO SCH (09:00)
[2019-05-20] MEDS ORDERED: GLIMEPIRIDE 2 MG TABLET PO SCH (09:00)
[2019-05-20] MEDS ORDERED: carvediloL 12.5 MG TAB PO SCH (09:00)
--- NOTE | 2019-05-20 20:52 | DS ---
Date of Discharge: 05/20/2019 Admitting Diagnoses: 1.Painless hematochezia. GI bleed. 2.Essential hypertension. 3.Mixed hyperlipidemia. 4.Diabetes mellitus type 2, non-insulin requiring. 5.Gastroesophageal reflux disease without esophagitis. 6.Coronary artery disease, [place] artery and [place] heart status post stent. Discharge Diagnoses: 1.Bright red blood per rectum, likely lower GI diverticular bleed. 2.Coronary artery disease status post coronary artery bypass graft, [place] artery and [place] heart w ithout angina. Plavix held. 3.Mixed hyperlipidemia, on statin. 4.Essential hypertension, stable. 5.Diabetes mellitus type 2 with hyperglycemia, [id number]-[id number], stable. 6.Gastroesophageal reflux disease without esophagitis, stable. Hospital Course: Patient is a 74-year-old male, comes in with bloody stool, bright red blood per rec corrina. He is on Plavix and aspirin for his history of stents. He also had some abdominal pain, indige stion, and bloating. CT scan of the abdomen was done showed diverticulosis without acute diverticuli tis. Chest x-ray was clear. He was seen by Dr. Mcmanus with GI. He recommended monitoring the H a nd H and outpatient colonoscopy. Patient did not have any more further GI bleeding. He was then radha ared for discharge from GI standpoint. Dr. Frank also evaluated the patient. He was okay with hol ding his Plavix until at least the colonoscopy is done and any major source of bleeding is found. He does recommend continuing the aspirin for now. Overall, patient did well. His hemoglobin, as menti oned earlier, remained stable. He did not have any further bleeding in-house. Vital signs were stab le. There was no hypotension or tachycardia. Patient was then cleared for discharge and was sent ho mo in a stable condition. Activity: As tolerated. Medications: As per medication reconciliation list. He will finish off course of antibiotics for di verticulosis and diverticulitis. Followup: Follow up with primary care physician in 2-3 days. Follow up with cook barbecue, Dr. Addis moseley in 2 weeks. Follow up with GI, Dr. Mcmanus in 1-2 weeks. Return to ER for worsening condition. Diet: Heart healthy. Activity: As tolerated. Physical Examination: General: Awake, alert, and oriented x3 elderly male. CV: S1, S2. Respiratory: Moving air well bilaterally. Abdomen: Abdomen is soft, nontender, nondistended. Positive bowel sounds. Extremities: No clubbing, cyanosis, or edema. Neurologic: Nonfocal. SA/MODL Voice ID: [id number] Report ID: [id number]
[2019-05-21] MEDS ORDERED: PANTOPRAZOLE 40MG TABLET PO SCH (06:30)
== END 2019-05-20 10:00 | disposition home or self-care (01) ==
LOC: ER 04:09 → ERHOLD 06:13 → INTOOBSV 06:13 → 4TH 10:21
PROVIDERS: ADMIT Internal Medicine; ATTEND Internal Medicine
DX: K62.5 Hemorrhage of anus and rectum (principal); I25.10 Atherosclerotic heart disease of native coronary artery without angina pectoris; Z95.1 Presence of aortocoronary bypass graft; E11.9 Type 2 diabetes mellitus without complications; Z79.82 Long term (current) use of aspirin; I11.0 Hypertensive heart disease with heart failure; I50.22 Chronic systolic (congestive) heart failure; E78.2 Mixed hyperlipidemia
CPT/HCPCS: 96361; 93005; 87088; 85025 ×2; 80048 ×2; 36415 ×2; 86900; 83735; 86850; 85610; 86901; 82947 ×4; 80076; 81003; 84484; 83880; 74177; 71045; 96375; 96374; 99285; Q9967; C9113; J7030 ×2; J2405; J0744 ×3; G0378 ×3; 87086

== ENCOUNTER 2022-02-27 08:33 | Day surgery (SDC) | payer OTHER ==
[2022-02-26 09:59] LABS: Absolute Lymphocytes (CBC) 1.6 K/uL (0.7-4.9); Hematocrit 47.8 % (39.6-49.0); Lymphocytes % 21.3 % (15.3-44.8); MCV 97.3 fL (80-100); MPV 8.9 fL (7.6-11.3); RBC Red Blood Cell Count 4.91 M/uL (4.33-5.43)
[2022-02-26 10:10] LABS: Potassium 4.2 mmol/L (3.5-5.1)
[2022-02-26 10:17] LABS: Protime INR 0.97
--- NOTE | 2022-02-26 10:21 | RAD REPORT ---
EXAM DESCRIPTION: Doug Khanna (2 Views)02/26/2022 10:06 am CLINICAL HISTORY: Preop for angiogram. Hypertension COMPARISON: 2019 FINDINGS: The lungs appear clear of acute infiltrate. The heart is normal size. Postsurgical changes involve the chest IMPRESSION: No acute abnormalities displayed
[~2022-02-27 08:33] MED LIST: ATROPINE SULF 1 MG/10 ML SYR IV ONE; FENTANYL CITR 100 MCG/2 ML ONE; MIDAZOLAM HCL 2 MG/2 ML INJ ONE
[2022-02-27] MEDS ORDERED: NA CHLORIDE 0.9% 500 ML ONE (08:36)
[2022-02-27] MEDS ORDERED: HEPA 1000U/500MLS 1,000 UNIT/500 ML BAG IV ONE (08:42)
--- NOTE | 2022-02-27 10:41 | OP ---
Surgeon: Jesu Frank MD Rn Neonatal: Ms. Nadine Chan. Procedures Performed: The patient underwent selective bilateral carotid angiogram and common femoral artery angiogram. Indication: Abnormal carotid Doppler bilaterally. Mr. Seals is 77, history of CABG, hypertension, dyslipidemia, CVD, has been monitored, worsened on carotid Doppler, scheduled for carotid angiogram as an outpatient. Procedure In Detail: Brought to the laboratory animal care veterinarian today, prepped and draped in routine sterile fashion. Given Versed and fentanyl for sedation. A 6-Frisian sheath introduced in the right common femoral art li successfully using the Seldinger technique and 10 cc of Xylocaine. Angiography in the common fem oral artery was normal. Angio-Seal was used to close the case. Aníbal catheter JR4 was used to can nulate the right common carotid and the left common carotid selectively. He was found to have normal external carotid, normal common carotid bilaterally. There was an 80% stenosis in the right ICA, 90 % stenosis in the ostial and left ICA. There were no complications. Blood Loss: 5 cc. Postoperative Diagnosis: Severe bilateral carotid artery disease. Plan: For bilateral staged CEA. We will make arrangements for that as an outpatient. The patient w ill remain in the hospital for 2 hours of bedrest. He will have a CD with him and I will send CD to [facility] for review by [facility]. He will go home in 2 hours. NATHALIE/MORENITA Voice ID: [id number] Report ID: [id number]
[2022-02-27 11:25] VITALS: BP 131/65; O2SAT 98
--- NOTE | 2022-03-01 06:06 | EKG ---
Test Date: 2022-02-26 Test Time: 09:39:51 Signal Helper: JOSE MEASUREMENT RESULTS: Intervals: Rate: 60 [place]: 162 QRSD: 112 QT: 432 QTc: 432 [place]: P: 25 [place]: 162 QRS: 1 T: 72 INTERPRETIVE STATEMENTS: Normal sinus rhythm Cannot rule out Anterior infarct, age undetermined Abnormal ECG Compared to ECG 05/19/2019 05:07:38 T-wave abnormality no longer present Possible ischemia no longer present Myocardial infarct finding still present Electronically Signed On 03-01-22 06:00:37 CDT by Jesu Frank
== END 2022-02-27 11:29 | disposition home or self-care (01) ==
LOC: CCL 08:33
DX: I65.23 Occlusion and stenosis of bilateral carotid arteries (principal); I25.10 Atherosclerotic heart disease of native coronary artery without angina pectoris; I10 Essential (primary) hypertension; E78.5 Hyperlipidemia, unspecified; Z95.1 Presence of aortocoronary bypass graft
CPT/HCPCS: 93005; 85025; 80048; 36415; 85610; 82947; 85730; 71046; 36222; C1893; C1760; G0269; J2250; J3010; J7040; J1644

== ENCOUNTER 2022-07-11 06:30 | Day surgery (SDC) | payer OTHER ==
[2022-07-09 16:02] LABS: Absolute Lymphocytes (CBC) 1.3 K/uL (0.7-4.9); Hematocrit 41.7 % (39.6-49.0); Lymphocytes % 11.7 % (15.3-44.8); MCV 95.9 fL (80-100); MPV 9.1 fL (7.6-11.3); RBC Red Blood Cell Count 4.35 M/uL (4.33-5.43)
[2022-07-09 16:14] LABS: Protime INR 0.97
[2022-07-09 16:15] LABS: Potassium 3.8 mmol/L (3.5-5.1)
--- NOTE | 2022-07-10 12:41 | EKG ---
Test Date: 2022-07-09 Test Time: 14:47:24 Transportation Maintenance Operator: GLENYS MEASUREMENT RESULTS: Intervals: Rate: 70 [place]: 206 QRSD: 114 QT: 422 QTc: 455 [place]: P: 58 [place]: 206 QRS: -8 T: 119 INTERPRETIVE STATEMENTS: Normal sinus rhythm Cannot rule out Anterior infarct, age undetermined ST & T wave abnormality, consider lateral ischemia Abnormal ECG Compared to ECG 02/26/2022 09:39:51 ST (T wave) deviation now present Possible ischemia now present Myocardial infarct finding still present Electronically Signed On 07-10-22 12:39:07 CDT by Jace Al
[~2022-07-11 06:30] MED LIST changes: +ASPIRIN 325 MG TAB ONE; +CLOPIDOGREL 75 MG TABLET ONE; +HEPA 1000U/500MLS 2,000 UNIT/1,000 ML BAG IV ONE; +HEPARIN 10,000 UNIT/10 ML VIAL IV ONE; +HEPARIN 5000 UNIT/ML 1 ML VIAL ONE; +LIDOCAINE 1% 20 ML MDV ONE; +NITROGLYCERIN 100 MCG/ML SYR (for cath lab use only) IV ONE; +NITROGLYCERIN/D5W 25 MG/250 ML BTL IV ONE; +TICAGRELOR 90 MG TABLET PO ONE; +VERAPAMIL HCL 10 MG/4 ML VIAL IV ONE
[2022-07-11] MEDS ORDERED: NA CHLORIDE 0.9% 500 ML ONE (06:34)
[2022-07-11] MEDS ORDERED: LIDOCAINE 1% 20 ML MDV ONE (06:58)
[2022-07-11 07:20] VITALS: TEMP 97.6
[2022-07-11] MEDS ORDERED: Phenylephrine HCl 10 MG/ML 1 ML VIAL ONE (08:09)
[2022-07-11] MEDS ORDERED: NALOXONE 0.4 MG/ML VIAL ONE (08:09)
[2022-07-11] MEDS ORDERED: FLUMAZENIL 0.1 MG/ML (5 mL VIAL) IV ONE (08:09)
[2022-07-11 11:07] VITALS: BP 134/67; O2SAT 99
--- NOTE | 2022-07-11 13:34 | OP ---
Date of Procedure: 07/11/2022 Surgeon: BENSON OLMSTEAD Procedure Performed: Peripheral angiogram with runoff. Indication For Procedure: Angiogram on arterial Doppler with pain lower extremity. Access: 1.The left femoral artery 4-Panamanian closed with manual pressure. 2.Right radial artery 6-Panamanian closed with TR band. Complications: None. Bleeding: Less than 10 mL. Anesthesia: Total sedation time was 25 minutes. Description Of Procedure: After risks, benefits, alternatives were explained, the patient agreed to the procedure and signed informed consent. The patient was brought into the cardiac catheterization laboratory, prepped and draped in the usual sterile fashion. I then accessed the right radial artery using pediatric micropuncture kit, placed a 6-[place]ian Slender sheath and tried to get the catheter in to the descending aorta; however, his aortic arch is very small and could not navigate the catheter, so I decided to proceed with the groin access. Then, I removed the wire and the catheter and then ac cessed left femoral artery using micropuncture kit, ultrasound guidance and fluoroscopy, and placed a 4-[place]ian [place] sheath. I took a straight 4-[place]amanian pigtail catheter into the distal aorta, perfor med distal aortogram with runoff. I then removed the catheter and sheath. Manual pressure was appli ed for closure of the femoral access and TR band was applied on the right radial access with good hem ostasis. Findings: 1.Distal aorta is widely patent. No disease. 2.Right common iliac has 50% stenosis, focal. Then the right internal iliac, common femoral artery are normal. The right profunda is normal and the SFA is normal all the way until above the knee and has focal 40% stenosis on below the knee. The flow was sluggish, but could not see significant steno sis. 3.The left common iliac, internal iliac, common femoral artery are all normal. Left profunda is nor mal. The left SFA is patent and normal all the way to the distal portion. There is a focal 50% sten osis on below the knee. There is triple vessel with mild diffuse disease. Conclusion: Moderate peripheral vascular disease. Plan: Medical management. SR/MODL Voice ID: [id number] Report ID: [id number]
== END 2022-07-11 11:51 | disposition home or self-care (01) ==
LOC: CCL 06:30
PROVIDERS: ATTEND Internal Medicine
DX: I70.203 Unspecified atherosclerosis of native arteries of extremities, bilateral legs (principal); I25.10 Atherosclerotic heart disease of native coronary artery without angina pectoris; E11.9 Type 2 diabetes mellitus without complications; I65.23 Occlusion and stenosis of bilateral carotid arteries; I11.0 Hypertensive heart disease with heart failure; I50.22 Chronic systolic (congestive) heart failure; I25.5 Ischemic cardiomyopathy; I35.0 Nonrheumatic aortic (valve) stenosis; E78.5 Hyperlipidemia, unspecified; Z95.1 Presence of aortocoronary bypass graft; Z79.82 Long term (current) use of aspirin; Z79.899 Other long term (current) drug therapy; Z82.49 Family history of ischemic heart disease and other diseases of the circulatory system
CPT/HCPCS: 93005; 85025; 80048; 36415; 85610; 82947; 85730; 36200; 75630; 76937; C1893; C1769; J1644; J2001 ×2; J2370; J2250; J3010; J7040; J0461; J2310

== ENCOUNTER 2022-07-11 19:10 | Emergency (ER) | payer OTHER ==
--- OUTSIDE RECORDS SUMMARY | 2022-07-11 19:19 | XMS REPORT | Continuity of Care Document ---
:1945 Author Organization [facility] t Address [address] [place] [address] [address] [place] [address] Care Team Providers Name Role Phone ADAMSGUILLERMO Godinez LENKA Primary Care Physician Unavailable QUINTIN JACQUES Attending Clinician Unavailable Sadia BOYLE, Quintin Boyer Attending Clinician [phone] Daniele CHAO, Marti Attending Clinician CRISTIANO BOYCE Attending Clinician Unavailable Dominic BOYLE, Chen Perez Attending Clinician [phone] Jesus Fischer MD Attending Clinician [phone] Cristiano Boyce MD Attending Clinician Atul Pelletier MD Attending Clinician Quintin Tomlinson MD Attending Clinician Roslyn Londono MD Attending Clinician Scott Garcia DO Attending Clinician [phone] Robert Pastrana Attending Clinician Unavailable Mu Nelson MD Attending Clinician Ion Muse MD Attending Clinician NEHEMIAS LAYNE Attending Clinician Unavailable Nehemias Layne MD Attending Clinician Doctor Unassigned, Mabie Attending Clinician Unavailable Only, Adc Test Attending Clinician Unavailable Pob, Adc Lab Main Attending Clinician Unavailable Jaida Contreras RN, Charles Attending Clinician Unavailable Isa CHAO, Cristiana Attending Clinician Unavailable Rosalba BOYLE, Navneet Attending Clinician Sandi MARKETING INFORMATION COORDINATOR, Federica Attending Clinician MD ION MUSE Attending Clinician Unavailable Rick Boyle MA Attending Clinician Unavailable QUINTIN JACQUES Admitting Clinician Unavailable NEHEMIAS LAYNE Admitting Clinician Unavailable Xi BOYLE, Nehemias Singletary Admitting Clinician ION MUSE Admitting Clinician Unavailable GALI GARCIA Admitting Clinician Unavailable Payers Payer Name Policy Type Policy Number Effective Date Expiration Date S mehrdad [employer]ET[employer] MEDICARE HMO [id number] 2021 POS PPO 00:00:00 [employer]ETNA MANAGED [id number] 2021 MEDICARE PPO-PENNY 00:00:00 Problems Condition Condition Condition Status Onset Resolution Last Treating Co mments Source Name Details Category Date Date Treatment Clinician Date s/p Right s/p Right Disease Active 2021-[address] [facility] neck neck 2-19 [facility] explor[facility] exploratio 00:00: Me dical n, EOH; n, EOH; 00 Center s/p R CEA s/p R CEA by by Dr. Sadia Jacques (04/16/22) (04/16/22) Carotid Carotid Disease Active 2021-[address] [facility] [address] stenosis stenosis 1-17 [facility] 00:[facility]: Medical 00 Center Carotid Carotid Disease Active 2021-[address] [facility] stenosis, stenosis, 1-17 [facility] asymptomat asymptomat 00:00: Me dical ic ic 00 Center Carotid Carotid Disease Active 2021-[address] [facility] stenosis, stenosis, 1-03 [facility] asymptomat asymptomat 00:00: Me dical ic, ic, 00 Center bilateral bilateral CAD CAD Disease Active 2021-[address] [facility] [address] (coronary (coronary 1-03 [facility] artery artery 00:00: Medical disease) disease) 00 Center Type 2 Type 2 Disease Active 2021-[address] [facility] diabetes diabetes 1-03 [facility] mellitus, mellitus, 00:00: Medi clark without without 00 Center long-term long-term current current use of use of insulin insulin S/P Left S/P Left Disease Active Metho di Shoulder Shoulder 3-18 st Arthroscop Arthroscop 00:00: Ho spita y With y With 00 l Decompress Decompress ion, ion, Acromiocla Acromiocla vicular vicular Resection, Resection, Rotator Rotator Cuff Cuff Repair, Repair, Extensive Extensive Debridemen Debridemen t t Sprain of Sprain of Disease Active Overview: Methodi left left 2-[address] rotator rotator 00:00: g of this Hospi ta cuff cuff 00 note l capsule capsule might be different from the original. 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 carotid carotid Medical endarterec endarterec Ce nter carola srivastava Allergies, Adverse Reactions, Alerts Allergy Allergy Status Severity Reaction(s) Onset Inactive Treating Comm ents Source Name Type Date Date Clinician NO KNOWN Allergy Active [facility] ALLERGIE [facility] NO KNOWN Drug Active [facility] ALLERGIE Class ity of S [facility] Family History Family Member Diagnosis Comments Start Date Stop Date Source Natural father Cancer [facility] Natural father Heart disease [facility] Natural father Liver disease [facility] Natural father Liver disease [facility] Natural mother Diabetes [facility] Natural mother Diabetes [facility] Natural brother Diabetes [facility] Social History Social Habit Start Date Stop Date Quantity Comments Source History SDOH [facility] Alcohol Std Drinks Medica l Center History SDOH [facility] Alcohol Binge Medical Josue ter History SDOH [facility] Alcohol Comment Medical C enter History SDOH [facility] Housing Places Medical Ce nter Lived Alcohol intake 2022-05-02 2022-05-[address] [facility] 00:00:00 00:00:00 non-drinker Medical Bess mcgowan (finding) Exposure to 2022-04-06 2022-04-[address] [facility] SARS-CoV-2 (event) 00:00:00 05:25:00 Medica l Center History [facility] 2022-03-15 2022-03-[address] [facility] Housing Unable to 00:00:00 00:00:00 Medical Center Pay History [facility] 2022-03-15 2022-03-[address] [facility] Housing Homeless 00:00:00 00:00:00 Medical Center Last Year History [facility] 2022-03-12 2022-03-[address] [facility] Alcohol Frequency 00:00:00 00:00:00 Medical Center Tobacco use and 2022-03-01 2022-03-[address] [facility] Charisse kes exposure 00:00:00 00:00:00 Medical Center Sex Assigned At [address] [address] Charisse kes 00:00:00 00:00:00 Medical Center Smoking Status Start Date Stop Date Source Unknown if ever smoked [facility] Never smoker [facility] Medications Ordered Filled Start Stop Current Ordering Indication Dosage Frequency Signature Comments Components Source Medication Medication Date Date Medication? Clinician (SIG) Name Name acetaminoph 2022- No 650mg Take [address] en 1-04 01-04 mg by [facility] (TYLENOL) 10:57: 00:00 mouth Medica l 325 MG 23 :00 every 6 Center tablet (six) hours as needed for Pain. acetaminoph 2022- No 650mg Take [address] en 1-04 01-04 mg by [facility] (TYLENOL) 10:57: 00:00 mouth Medica l 325 MG 23 :00 every 6 Center tablet (six) hours as needed for Pain. acetaminoph 2022- No 650mg Take [address] en 1-04 01-04 mg by [facility] (TYLENOL) 10:57: 00:00 mouth Medica l 325 MG 23 :00 every 6 Center tablet (six) hours as needed for Pain. acetaminoph 2022- No 650mg Take [address] en 1-04 01-04 mg by [facility] (TYLENOL) 10:57: 00:00 mouth Medica l 325 MG 23 :00 every 6 Center tablet (six) hours as needed for Pain. acetaminoph 2022-0 2022- No 650mg Take [address] en 1-04 01-04 mg by [facility] (TYLENOL) 10:57: 00:00 mouth Medica l 325 MG 23 :00 every 6 Center tablet (six) hours as needed for Pain. aspirin 81 3-0 Yes 81mg QD Take [address] MG EC 1-04 by mouth [facility] tablet 10:56: daily. Medical 30 Center lansoprazol 3-0 Yes 15mg QD Take [address] [facility] e 1-04 by mouth [facility] (PREVACID) 10:56: daily. Medic al 15 MG 30 Center capsule ascorbic 3-0 Yes 100mg QD Take [address] acid, 1-04 mg by [facility] vitamin C, 10:56: mouth Medica l (vitamin C) 30 daily. Center 100 MG tablet zinc 3-0 Yes 220mg QD Take [address] sulfate 1-04 mg by [facility] (ZINCATE) 10:56: mouth Medical 50 mg zinc 30 daily. Center (220 mg) capsule TUMERIC-GIN 3-0 Yes QD Take by [facility] G-OLIVE-ORE 1-04 mouth [facility] G-CAPRYL 10:56: daily. Medical ORAL 30 Center aspirin 81 3-0 Yes 81mg QD Take [address] MG EC 1-04 by mouth [facility] tablet 10:56: daily. Medical 30 Center lansoprazol 3-0 Yes 15mg QD Take [address] [facility] e 1-04 by mouth [facility] (PREVACID) 10:56: daily. Medic al 15 MG 30 Center capsule ascorbic 3-0 Yes 100mg QD Take [address] acid, 1-04 mg by [facility] vitamin C, 10:56: mouth Medica l (vitamin C) 30 daily. Center 100 MG tablet zinc 2023-0 Yes 220mg QD Take [address] sulfate 1-04 mg by [facility] (ZINCATE) 10:56: mouth Medical 50 mg zinc 30 daily. Center (220 mg) capsule TUMERIC-GIN 2023-0 Yes QD Take by [facility] G-OLIVE-ORE 1-04 mouth [facility] G-CAPRYL 10:56: daily. Medical ORAL 30 [place] aspirin 81 2022-0 Yes 81mg QD Take [address] MG EC 1-04 by mouth [facility] tablet 10:56: daily. [facility] 30 [place] lansoprazol 3-0 Yes 15mg QD Take [address] e 1-04 by mouth [facility] (PREVACID) 10:56: daily. Medic al 15 MG 30 Center capsule ascorbic 3-0 Yes 100mg QD Take [address] acid, 1-04 mg by [facility] vitamin C, 10:56: mouth Medica l (vitamin C) 30 daily. Center 100 MG tablet zinc 2022-0 Yes 220mg QD Take [address] sulfate 1-04 mg by [facility]ukes (ZINCATE) 10:56: mouth Medical 50 mg zinc 30 daily. Center (220 mg) capsule TUMERIC-GIN 3-0 Yes QD Take by [facility] G-OLIVE-ORE 1-04 mouth [facility] G-CAPRYL 10:56: daily. Medical ORAL 30 [place] aspirin 81 2022-0 Yes 81mg QD Take [address] MG EC 1-04 by mouth [facility] tablet 10:56: daily. [facility] 30 [place] lansoprazol 2022-0 Yes 15mg QD Take [address] e 1-04 by mouth [facility] (PREVACID) 10:56: daily. Medic al 15 MG 30 Center capsule ascorbic 3-0 Yes 100mg QD Take [address] acid, 1-04 mg by [facility] vitamin C, 10:56: mouth Medica l (vitamin C) 30 daily. Center 100 MG tablet zinc 3-0 Yes 220mg QD Take [address] sulfate 1-04 mg by [facility]ukes (ZINCATE) 10:56: mouth Medical 50 mg zinc 30 daily. Center (220 mg) capsule TUMERIC-GIN 3-0 Yes QD Take by [facility] G-OLIVE-ORE 1-04 mouth [facility] G-CAPRYL 10:56: daily. Medical ORAL 30 [place] aspirin 81 2022-0 Yes 81mg QD Take [address] MG EC 1-04 by mouth [facility] tablet 10:56: daily. [facility] 30 [place] lansoprazol 3-0 Yes 15mg QD Take [address] [facility] e 1-04 by mouth [facility] (PREVACID) 10:56: daily. Medic al 15 MG 30 Center capsule ascorbic 0 Yes 100mg QD Take [address] acid, 1-04 mg by [facility] vitamin C, 10:56: mouth Medica l (vitamin C) 30 daily. Center 100 MG tablet zinc 2022-0 Yes 220mg QD Take [address] sulfate 1-04 mg by [facility]ukes (ZINCATE) 10:56: mouth Medical 50 mg zinc 30 daily. [place] (220 mg) capsule TUMERIC-GIN 2022-0 Yes QD Take by [facility] G-OLIVE-ORE 1-04 mouth [facility] G-CAPRYL 10:56: daily. Medical ORAL 30 Center promethazin 2021-04 Yes Take by [facility] e-dextromet 2-27 mouth [facility] horphan 00:00: every 6 Medical (PROMETHAZI 00 (critical access hospital) [facility]) hours as 6.25-15 needed. mg/5 mL syrup promethazin 2021-04 Yes Take by [facility] e-dextromet 2-27 mouth [facility] horphan 00:00: every 6 Medical (PROMETHAZI 00 (critical access hospital) [facility]) hours as 6.25-15 needed. mg/5 mL syrup promethazin 2021-04 Yes Take by [facility] e-dextromet 2-27 mouth [facility] horphan 00:00: every 6 Medical (PROMETHAZI 00 (critical access hospital) [facility]) hours as 6.25-15 needed. mg/5 mL syrup promethazin 2021-04 Yes Take by [facility] e-dextromet 2-27 mouth [facility] horphan 00:00: every 6 Medical (PROMETHAZI (six) [facility]) hours as 6.25-15 needed. mg/5 mL syrup promethazin 2021-04 Yes Take by [facility] e-dextromet 2-27 mouth [facility] horphan 00:00: every 6 Medical (PROMETHAZI (critical access hospital) [facility]) hours as 6.25-15 needed. mg/5 mL syrup LATANOPROST 2021-04- No Apply to HI [facility] OPHT 2-05 12-05 eye(s). [facility] 10:48: 00:00 Medical 37 :00 [place] LATANOPROST 2021-04- No Apply to C [facility] OPHT 2-05 12-05 eye(s). [facility] 10:48: 00:00 Medical 37 :00 Center LATANOPROST 2021-2021- No Apply to C [facility] OPHT 2-05 12-05 eye(s). [facility] 10:48: 00:00 Medical 37 :00 Center LATANOPROST 2021-04- No Apply to C [facility] OPHT 2-05 12-05 eye(s). [facility] 10:48: 00:00 Medical 37 :00 Center LATANOPROST 2021-04- No Apply to C [facility] OPHT 2-05 12-05 eye(s). [facility] 10:48: 00:00 Medical 37 :00 Center traMADoL 2021-04 Yes 50mg Take [address] [facility] (ULTRAM) 50 0-31 by mouth Luke s mg tablet 00:00: every 6 Medic al 00 (six) Center hours as needed. traMADoL 2021-04 Yes 50mg Take [address] (ULTRAM) 50 0-31 by mouth Luke s mg tablet 00:00: every 6 Medic al 00 (six) Center hours as needed. traMADoL 2021-04 Yes 50mg Take [address] (ULTRAM) 50 0-31 by mouth Luke s mg tablet 00:00: every 6 Medic al 00 (six) Center hours as needed. traMADoL 2021-04 Yes 50mg Take [address] (ULTRAM) 50 0-31 by mouth Luke s mg tablet 00:00: every 6 Medic al 00 (six) Center hours as needed. traMADoL 2021-04 Yes 50mg Take [address] (ULTRAM) 50 0-31 by mouth Luke s mg tablet 00:00: every 6 Medic al 00 (six) Center hours as needed. glimepiride 2021-0 Yes 2mg Q.5D Take [address] (AMARYL) 2 9-29 by mouth 2 [place] MG tablet 00:00: (two) Medical 00 times Center daily. glimepiride 2021-0 Yes 2mg Q.5D Take [address] (AMARYL) 2 9-29 by mouth 2 [place] MG tablet 00:00: (two) Medical 00 times Center daily. glimepiride 2022-0 Yes 2mg Q.5D Take [address] (AMARYL) 2 9-29 by mouth 2 [place] MG tablet 00:00: (two) Medical 00 times Center daily. glimepiride 2022-0 Yes 2mg Q.5D Take [address] (AMARYL) 2 9-29 by mouth 2 [place] MG tablet 00:00: (two) Medical 00 times Center daily. glimepiride 2022-0 Yes 2mg Q.5D Take [address] (AMARYL) 2 9-29 by mouth 2 [place] MG tablet 00:00: (two) Medical 00 times Center daily. carvediloL 2022-0 Yes 12.5mg Q.5D Take 12.[address] (COREG) 9-26 mg by [facility] 12.5 MG 00:00: mouth 2 Medical tablet 00 (two) Center times daily. isosorbide 2022-0 Yes 30mg Take [address] mononitrate 9-26 by mouth Luke s (IMDUR) 30 00:00: daily as Med ical MG 24 hr 00 needed. Center tablet potassium 2022-0 Yes 20meq QD Take [address] chloride SA 9-26 mEq by [facility] (K-DUR,KLOR 00:00: mouth Medic al -CON-M) 20 00 daily. Center MEQ tablet carvediloL 2022-0 Yes 12.5mg Q.5D Take 12.[address] (COREG) 9-26 mg by [facility]ukes 12.5 MG 00:00: mouth 2 Medical tablet 00 (two) Center times daily. isosorbide 2022-0 Yes 30mg Take [address] mononitrate 9-26 by mouth Luke s (IMDUR) 30 00:00: daily as Med ical MG 24 hr 00 needed. Center tablet potassium 2022-0 Yes 20meq QD Take [address] chloride SA 9-26 mEq by [facility] (K-DUR,KLOR 00:00: mouth Medic al -CON-M) 20 00 daily. Center MEQ tablet carvediloL 2022-0 Yes 12.5mg Q.5D Take 12.[address] (COREG) 9-26 mg by [facility]ukes 12.5 MG 00:00: mouth 2 Medical tablet 00 (two) Center times daily. isosorbide 2022-0 Yes 30mg Take [address] mononitrate 9-26 by mouth Luke s (IMDUR) 30 00:00: daily as Med ical MG 24 hr 00 needed. Center tablet potassium 2022-0 Yes 20meq QD Take [address] chloride SA 9-26 mEq by Lukes (K-DUR,KLOR 00:00: mouth Medic al -CON-M) 20 00 daily. Center MEQ tablet carvediloL 2022-0 Yes 12.5mg Q.5D Take 12.[address] (COREG) 9-26 mg by [facility]ukes 12.5 MG 00:00: mouth 2 Medical tablet 00 (two) Center times daily. isosorbide 2022-0 Yes 30mg Take [address] mononitrate 9-26 by mouth Luke s (IMDUR) 30 00:00: daily as Med ical MG 24 hr 00 needed. Center tablet potassium 2022-0 Yes 20meq QD Take [address] chloride SA 9-26 mEq by [facility]ukes (K-DUR,KLOR 00:00: mouth Medic al -CON-M) 20 00 daily. Center MEQ tablet carvediloL 2022-0 Yes 12.5mg Q.5D Take 12.[address] (COREG) 9-26 mg by Lukes 12.5 MG 00:00: mouth 2 Medical tablet 00 (two) Center times daily. isosorbide 2022-0 Yes 30mg Take [address] mononitrate 9-26 by mouth Luke s (IMDUR) 30 00:00: daily as Med ical MG 24 hr 00 needed. Center tablet potassium 2022-0 Yes 20meq QD Take [address] chloride SA 9-26 mEq by [facility]ukes (K-DUR,KLOR 00:00: mouth Medic al -CON-M) 20 00 daily. Center MEQ tablet furosemide 2022-0 Yes 40mg QD Take [address] (LASIX) 40 9-19 by mouth [facility] MG tablet 00:00: daily. Medica l 00 Center furosemide 2022-0 Yes 40mg QD Take [address] (LASIX) 40 9-19 by mouth [facility]ukes MG tablet 00:00: daily. Medica l 00 Center furosemide 2022-0 Yes 40mg QD Take [address] (LASIX) 40 9-19 by mouth [facility]ukes MG tablet 00:00: daily. [address] furosemide Yes 40mg QD Take [address] (LASIX) 40 9-19 by mouth [facility]ukes MG tablet 00:00: daily. [address] furosemide 0 Yes 40mg QD Take [address] (LASIX) 40 9-19 by mouth Lukes MG tablet 00:00: daily. [address] clopidogreL Yes 75mg QD Take [address] (PLAVIX) 75 8-30 by mouth Luke s mg tablet 00:00: daily. [address] clopidogreL 0 Yes 75mg QD Take [address] (PLAVIX) 75 8-30 by mouth Luke s mg tablet 00:00: daily. [address] clopidogreL Yes 75mg QD Take [address] (PLAVIX) 75 8-30 by mouth Luke s mg tablet 00:00: daily. [address] clopidogreL Yes 75mg QD Take [address] (PLAVIX) 75 8-30 by mouth Luke s mg tablet 00:00: daily. [address] clopidogreL 0 Yes 75mg QD Take [address] (PLAVIX) 75 8-30 by mouth Luke s mg tablet 00:00: daily. [address] aspirin Yes 81mg QD Take 81 mg Meth samantha (ECOTRIN) 6-[address] 81 MG 10:41: daily. Hospita enteric 15 l coated tablet lansoprazol 0 Yes 15mg QD Take 15 mg Methodi e 6-[address] (PREVACID) 10:41: daily. Hospi ta 15 MG 15 l capsule TURMERIC Yes 500mg Take 500 Meth samantha ORAL 6-[address] 10:41: mouth. Hospita 15 l aspirin 0 Yes 81mg QD Take 81 mg Meth samantha (ECOTRIN) 6-[address] 81 MG 10:41: daily. Hospita enteric 15 l coated tablet lansoprazol 0 Yes 15mg QD Take 15 mg Methodi e 6-[address] (PREVACID) 10:41: daily. Hospi ta 15 MG 15 l capsule TURMERIC 2-0 Yes 500mg Take 500 Meth samantha ORAL 6-[address] 10:41: mouth. Hospita 15 l aspirin 2-0 Yes 81mg QD Take 81 mg Meth samantha (ECOTRIN) 6-[address] 81 MG 10:41: daily. Hospita enteric 15 l coated tablet lansoprazol 2-0 Yes 15mg QD Take 15 mg Methodi e 6-[address] (PREVACID) 10:41: daily. Hospi ta 15 MG 15 l capsule TURMERIC 2021-0 Yes 500mg Take 500 Meth samantha ORAL 6-[address] 10:41: mouth. Hospita 15 l aspirin 2-0 Yes 81mg QD Take 81 mg Meth samantha (ECOTRIN) 6-[address] 81 MG 10:41: daily. Hospita enteric 15 l coated tablet lansoprazol 2-0 Yes 15mg QD Take 15 mg Methodi e 6-[address] (PREVACID) 10:41: daily. Hospi ta 15 MG 15 l capsule TURMERIC 2021-0 Yes 500mg Take 500 Meth samantha ORAL 6-[address] 10:41: mouth. Hospita 15 l aspirin 2-0 Yes 81mg QD Take 81 mg Meth samantha (ECOTRIN) 6-[address] 81 MG 10:41: daily. Hospita enteric 15 l coated tablet lansoprazol 2-0 Yes 15mg QD Take 15 mg Methodi e 6-[address] (PREVACID) 10:41: daily. Hospi ta 15 MG 15 l capsule TURMERIC 2021-0 Yes 500mg Take 500 Meth samatnha ORAL 6-[address] 10:41: mouth. Hospita 15 l aspirin 81 2-0 Yes 81mg Take 81 mg U nivers mg EC 5-12 by mouth ity of tablet 15:44: daily. [address] lansoprazol 2-0 Yes 15mg Take 15 mg Univers e 15 mg 5-12 by mouth ity of capsule 15:44: daily. [address] aspirin 81 2-0 Yes 81mg Take 81 mg U nivers mg EC 5-12 by mouth ity of tablet 15:44: daily. [address] lansoprazol Yes 15mg Take 15 mg Univers e 15 mg 5-12 by mouth ity of capsule 15:44: daily. [address] aspirin 81 Yes 81mg Take 81 mg U nivers mg EC 5-12 by mouth ity of tablet 15:44: daily. [address] lansoprazol Yes 15mg Take 15 mg Univers e 15 mg 5-12 by mouth ity of capsule 15:44: daily. [address] neomycin-po 2021- No PRN, Unive rs lymyxin-dex 09-07 Starting ity of amethasone 14:04: 14:17 [facility] :46 09/07/[address] [facility] ica 3.5 0904, [place] mg/g-10,000 Until [facility] unit/g-0.1 09/07/21 at % 0917, ophthalmic Routine, ointment Intra-op gentamicin 2021- No PRN, Univer s injection 09-07 Starting ity o f 14:03: 14:17 on [facility] 00 :46 09/07/21 at [facility] 09, Branch Until Pamela 09/07/21 at 0917, YURIY, Intra-op NaCl 0.9% 2021- No PRN, Univers (NS) 09-07 Starting ity of injection 14:03: 14:17 on [facility] 00 :46 09/07/21 at [facility] 0903, Branch Until [place] 09/07/21 at 0917, Routine, Intra-op dexamethaso 2021- No PRN, Unive rs ne 09-07 Starting ity of (DECADRON 14:03: 14:17 on [facility] PHOSPHATE) 00 :46 09/07/21 at Med ical injection 0903, Branch Until [place] 09/07/21 at 0917, Routine, Intra-op ceFAZolin 2021- No PRN, Univers (ANCEF) 09-07 Starting ity of injection 14:03: 14:17 on [facility] 00 :46 09/07/21 at [facility] 09, Branch Until [facility] 09/07/21 at 0917, YURIY, Intra-op chondroitin 2021- No PRN, Unive rs sulf-sod 09-07 Starting ity of hyaluronate 13:50: 14:17 on Pamela Luke as (DUOVISC 00 :46 22 at Medic al VISCO 0850, Branch ELASTIC) Until Pamela intraocular 09/07/21 at injection 0917, Routine, Intra-op balanced 2021- No PRN, Univers salt soln 09-07 Starting ity o f no.2 irrig. 13:50: 14:17 on Pamela Luke as (BSS) 00 :46 22 at [facility] ophthalmic 0850, Branch solution Until [place]ela 09/07/21 at 0917, Routine, Intra-op EPINEPHrine 2021- No PRN, Unive rs (PF) 09-07 Starting ity of 1:1,000 (1 13:50: 14:17 on [place] mg/mL) 00 :46 22 at [facility] (ADRENALIN 0850, Branch (PF)) Until [place]ela injection 09/07/21 at 0917, Routine, Intra-op water for 2021- No PRN, Univers irrigation 09-07 Starting ity of irrigation 13:47: 14:17 on [place] solution 00 :46 09/07/21 at Medic al 0847, Branch Until [place] 09/07/21 at 0917, Routine, Intra-op tetracaine 2021- No PRN, Univer s (PONTOCAINE 09-07 Starting ity of ) 0.5 % 13:45: 14:17 on [place] ophthalmic 00 :46 09/07/21 at Med ical drops 0845, Branch Until [place] 09/07/21 at 0917, Routine, Intra-op eye block 2021- No PRN, Univers syringe 11 09-07 Starting ity of mL 13:44: 14:17 on [place] 00 :46 09/07/21 at Medical 0844, Branch Until [place] 09/07/21 at 0917, Intra-op lactated 2021- No 1000mL at 42 Unive rs ringers IV 09-0712 mL/hr, ity of infusion 12:30: 12:23 1,000 mL, Luke as 1,000 mL 00 :00 IV Medical Infusion, Branch ONCE, 1 dose, On Pamela 09/07/21 at 0730, Routine, DSU Pre-op lactated 2021- No [facility]07- mL/hr, ity of infusion 12:30: 12:23 1,000 mL, Luke as 1,000 mL 00 :00 IV Medical Infusion, Branch ONCE, 1 dose, On [place] 09/07/21 at 0730, Routine, DSU Pre-op cyclopent 2021- No .5mL 0.5 mL, Univ ers 1%-tropic 09-07 Left Eye, ity of 1%-phenyl 12:15: 12:22 ONCE, 1 [place] 2.5%-ketor 00 :00 dose, On Medic al 0.5% [place] Branch (MYDRIATIC 09/07/21 at #5) 0715, ophthalmic Routine, solution DSU Pre-op syringe 0.5 mL cyclopent 2021- No .5mL 0.5 mL, Univ ers 1%-tropic 09-07 Left Eye, ity of 1%-phenyl 12:15: 12:22 ONCE, 1 [place] 2.5%-ketor 00 :00 dose, On Medic al 0.5% [place] Branch (MYDRIATIC 09/07/21 at #5) 0715, ophthalmic Routine, solution DSU Pre-op syringe 0.5 mL aspirin 81 Yes 81mg Take 81 mg U nivers mg EC 5-04 by mouth ity of tablet 12:50: daily. [address] lansoprazol Yes 15mg Take 15 mg Univers e 15 mg 5-04 by mouth ity of capsule 12:50: daily. [address] traMADoL 50 Yes 50mg Take 50 mg Univers mg tablet 4-25 by mouth 4 ity of 00:00: (four) [place] 00 times Medical daily. As Branch needed for pain traMADoL 50 Yes 50mg Take 50 mg Univers mg tablet 4-25 by mouth 4 ity of 00:00: (four) [place] 00 times Medical daily. As Branch needed for pain traMADoL 50 Yes 50mg Take 50 mg Univers mg tablet 4-25 by mouth 4 ity of 00:00: (four) [place] 00 times Medical daily. As Branch needed for pain traMADoL 50 0 Yes 50mg Take 50 mg Univers mg tablet 4-25 by mouth 4 ity of 00:00: (four) [place] 00 times Medical daily. As Branch needed for pain latanoprost Yes 1[drp] Place 1 U nivers 0.005 % 4-07 Drop in ity of ophthalmic 00:00: [place] drops 00 at Medical bedtime. Branch latanoprost Yes 1[drp] Place 1 U nivers 0.005 % 4-07 Drop in ity of ophthalmic 00:00: [place] drops 00 at Medical bedtime. Branch latanoprost Yes 1[drp] Place 1 U nivers 0.005 % 4-07 Drop in ity of ophthalmic 00:00: [place] drops 00 at Medical bedtime. Branch latanoprost Yes 1[drp] Place 1 U nivers 0.005 % 4-07 Drop in ity of ophthalmic 00:00: [place] drops 00 at Medical bedtime. Branch potassium Yes 1{tbl} Take 1 Univ ers chloride 20 3-25 tablet by ity of mEq tablet 00:00: mouth daily. Medical Branch potassium 2021-0 Yes 1{tbl} Take 1 Univ ers chloride 20 3-25 tablet by ity of mEq tablet 00:00: mouth 00 daily. Medical Branch potassium 2021-0 Yes 1{tbl} Take 1 Univ ers chloride 20 3-25 tablet by ity of mEq tablet 00:00: mouth 00 daily. Medical Branch potassium 0 Yes 1{tbl} Take 1 Univ ers chloride 20 3-25 tablet by ity of mEq tablet 00:00: mouth 00 daily. Medical Branch furosemide Yes 40mg Take 40 mg U nivers 40 mg 3-19 by mouth ity of tablet 00:00: daily. [place] 00 Medical Branch furosemide 2021-0 Yes 40mg Take 40 mg U nivers 40 mg 3-19 by mouth ity of tablet 00:00: daily. [place] [facility] furosemide 2021-0 Yes 40mg Take 40 mg U nivers 40 mg 3-19 by mouth ity of tablet 00:00: daily. [address] furosemide 2021-0 Yes 40mg Take 40 mg U nivers 40 mg 3-19 by mouth ity of tablet 00:00: daily. [address] clopidogreL 2021-0 Yes 75mg Take 75 mg Univers 75 mg 3-08 by mouth ity of tablet 00:00: daily. [place] [facility] clopidogreL 2021-0 Yes 75mg Take 75 mg Univers 75 mg 3-08 by mouth ity of tablet 00:00: daily. [address] clopidogreL 2021-0 Yes 75mg Take 75 mg Univers 75 mg 3-08 by mouth ity of tablet 00:00: daily. [address] clopidogreL 2-0 Yes 75mg Take 75 mg Univers 75 mg 3-08 by mouth ity of tablet 00:00: daily. [address] HYDROcodone 2021-2021- [place] [id number] acute Met hodi -acetaminop 3-02 03-[address] [facility] ([place]) 00:00: 05:59 tablets by Hospita 5-325 mg 00 :00 mouth l per tablet every 6 hours as needed for post op pain HYDROcodone 2021-0 2021- No [id number] acute Met hodi -acetaminop 3-02 03-[address] [facility] ([place]) 00:00: 05:59 tablets by Hospita 5-325 mg 00 :00 mouth l per tablet every 6 hours as needed for post op pain HYDROcodone 2021-0 2021- No [id number] acute Met hodi -acetaminop 3-02 03-[address] [facility] ([place]) 00:00: 05:59 tablets by Hospita 5-325 mg 00 :00 mouth l per tablet every 6 hours as needed for post op pain HYDROcodone 2021-0 2021- [place] [id number] acute Met hodi -acetaminop 3-02 03-[address] [facility] ([place]) 00:00: 05:59 tablets by Hospita 5-325 mg 00 :00 mouth l per tablet every 6 hours as needed for post op pain HYDROcodone 2021-0 2021- [place] [id number] acute Met hodi -acetaminop 2-16 02-[address] hen ([place]) 00:00: 00:00 tablets by Hospita 7.5-325 mg 00 :00 mouth l per tablet every 6 hours as needed for post op pain HYDROcodone 2021-0 2- No [id number] acute Met hodi -acetaminop 2-16 02-[address] hen ([place]) 00:00: 00:00 tablets by Hospita 7.5-325 mg 00 :00 mouth l per tablet every 6 hours as needed for post op pain HYDROcodone 2021-0 2021- [place] [id number] acute Met hodi -acetaminop 2-16 02-[address] hen ([place]) 00:00: 00:00 tablets by Hospita 7.5-325 mg 00 :00 mouth l per tablet every 6 hours as needed for post op pain HYDROcodone 2021-0 2021- [place] [id number] acute Met hodi -acetaminop 2-16 02-[address] hen ([place]) 00:00: 00:00 tablets by Hospita 7.5-325 mg 00 :00 mouth l per tablet every 6 hours as needed for post op pain rosuvastati 0 Yes 20mg Take 20 mg Univers n 20 mg 1-17 by mouth ity of tablet 00:00: daily. [address] rosuvastati 0 Yes 20mg Take 20 mg Univers n 20 mg 1-17 by mouth ity of tablet 00:00: daily. [address] rosuvastati 0 Yes 20mg Take 20 mg Univers n 20 mg 1-17 by mouth ity of tablet 00:00: daily. [address] rosuvastati 0 Yes 20mg Take 20 mg Univers n 20 mg 1-17 by mouth ity of tablet 00:00: daily. [address] rosuvastati 0 Yes QD Take by Met hodi n (CRESTOR) 1-[address] 20 mg 00:00: daily. Hospita tablet 00 l rosuvastati 2021-0 Yes QD Take by Met hodi n (CRESTOR) 1-[address] 20 mg 00:00: daily. Hospita tablet 00 l rosuvastati 0 Yes QD Take by Met hodi n (CRESTOR) 1-[address] 20 mg 00:00: daily. Hospita tablet 00 rosuvastati 0 Yes QD Take by Met hodi n (CRESTOR) 1-[address] 20 mg 00:00: daily. Hospita tablet 00 rosuvastati 0 Yes 20mg QD Take [address] [facility] [facility] (CREST[facility]) 1-17 by mouth Luke s 20 MG 00:00: daily. Medical tablet 00 [place] rosuvastati 0 Yes 20mg QD Take [address] [facility] (CRESTOR) 1-17 by mouth Luke s 20 MG 00:00: daily. Medical tablet 00 [place] rosuvastati 0 Yes 20mg QD Take [address] [facility] (CRESTOR) 1-17 by mouth Luke s 20 MG 00:00: daily. Medical tablet [address] [place] [address] rosuvastati Yes 20mg QD Take [address] [facility] (CRESTOR) 1-17 by mouth Luke s 20 MG 00:00: daily. Medical tablet [address] [place] [address] rosuvastati Yes QD Take by Met hodi n (CRESTOR) 1-[address] 20 mg 00:00: daily. Hospita tablet [facility] rosuvastati Yes 20mg QD Take [address] [facility] (CRESTOR) 1-17 by mouth Luke s 20 MG 00:00: daily. Medical tablet 00 [place] ibuprofen 2020-04 Yes [facility] (ADVIL) 400 1-21 [facility] MG tablet 00:00: Hospita 00 ibuprofen 2020-04 Yes [facility] (ADVIL) 400 1-21 [facility] MG tablet 00:00: Hospita 00 ibuprofen 2020-04 Yes [facility] (ADVIL) 400 1-21 [facility] MG tablet 00:00: Hospita 00 ibuprofen 2020-04 Yes [facility] (ADVIL) 400 1-21 [facility] MG tablet 00:00: Hospita 00 ibuprofen 2020-04 Yes [facility] (ADVIL) 400 1-21 st MG tablet 00:00: Hospita 00 carvediloL 2020-04 Yes 12.5mg Take 12.5 Univers 12.5 mg 0-03 mg by ity of tablet 00:00: mouth 2 [place] 00 (two) Medical times Branch daily. carvediloL 2020-04 Yes 12.5mg Take 12.5 Univers 12.5 mg 0-03 mg by ity of tablet 00:00: mouth 2 [place] (two) Medical times Branch daily. carvediloL 2020-04 Yes 12.5mg Take 12.5 Univers 12.5 mg 0-03 mg by ity of tablet 00:00: mouth 2 [place] (two) Medical times Branch daily. carvediloL 2020-04 Yes 12.5mg Take 12.5 Univers 12.5 mg 0-03 mg by ity of tablet 00:00: mouth 2 [place] (two) Medical times Branch daily. carvediloL 2020-04 Yes 12.5mg Q.5D Take 12.5 [facility] (COREG) 0-[address] 12.5 MG 00:00: mouth 2 Hospita tablet 00 (two) l times a day with meals. carvediloL 2020-04 Yes 12.5mg Q.5D Take 12.5 [facility] (COREG) 0-[address] 12.5 MG 00:00: mouth 2 Hospita tablet 00 (two) l times a day with meals. carvediloL 2020-04 Yes 12.5mg Q.5D Take 12.5 [facility] (COREG) 0-[address] 12.5 MG 00:00: mouth 2 Hospita tablet 00 (two) l times a day with meals. carvediloL 2020-04 Yes 12.5mg Q.5D Take 12.5 [facility] (COREG) 0-[address] 12.5 MG 00:00: mouth 2 Hospita tablet 00 (two) l times a day with meals. carvediloL 2020-04 Yes 12.5mg Q.5D Take 12.5 [facility] (COREG) 0-[address] 12.5 MG 00:00: mouth 2 Hospita tablet 00 (two) l times a day with meals. isosorbide 2020-04 Yes 30mg QD 30 mg Method i mononitrate 0-[address] (IMDUR) 30 00:00: Hospita MG 24 hr 00 l tablet isosorbide 2020-04 Yes 30mg QD 30 mg Method i mononitrate 0-[address] (IMDUR) 30 00:00: Hospita MG 24 hr 00 l tablet isosorbide 1-1 Yes 30mg QD 30 mg Method i mononitrate 0-[address] (IMDUR) 30 00:00: Hospita MG 24 hr 00 l tablet isosorbide 1-1 Yes 30mg QD 30 mg Method i mononitrate 0-[address] (IMDUR) 30 00:00: Hospita MG 24 hr 00 l tablet isosorbide 1-1 Yes 30mg QD 30 mg Method i mononitrate 0-[address] (IMDUR) 30 00:00: Hospita MG 24 hr 00 l tablet glimepiride 1-0 Yes 2mg Take 2 mg U nivers 2 mg tablet 9-23 by mouth 2 it y of 00:00: (two) [place] 00 times Medical daily. Branch glimepiride 2021-0 Yes 2mg Take 2 mg U nivers 2 mg tablet 9-23 by mouth 2 it y of 00:00: (two) [place] 00 times Medical daily. Branch glimepiride 2021-0 Yes 2mg Take 2 mg U nivers 2 mg tablet 9-23 by mouth 2 it y of 00:00: (two) [place] 00 times Medical daily. Branch glimepiride 2021-0 Yes 2mg Take 2 mg U nivers 2 mg tablet 9-23 by mouth 2 it y of 00:00: (two) [place] 00 times Medical daily. Branch glimepiride 2021-0 Yes 2mg Take 2 mg M ethodi (AMARYL) 2 9-[address] MG tablet 00:00: Hospita 00 l glimepiride 2021-0 Yes 2mg Take 2 mg M ethodi (AMARYL) 2 9-[address] MG tablet 00:00: Hospita 00 l glimepiride 2021-0 Yes 2mg Take 2 mg M ethodi (AMARYL) 2 9-[address] MG tablet 00:00: Hospita 00 l glimepiride 2021-0 Yes 2mg Take 2 mg M ethodi (AMARYL) 2 9-[address] MG tablet 00:00: Hospita 00 l glimepiride 2021-0 Yes 2mg Take 2 mg M ethodi (AMARYL) 2 9-[address] MG tablet 00:00: Hospita 00 l clopidogreL Yes Method i (PLAVIX) 75 8-13 st mg tablet 00:00: Hospita 00 l clopidogreL Yes Method [facility] (PLAVIX) 75 8-13 st mg tablet 00:00: Hospita 00 l clopidogreL Yes Method i (PLAVIX) 75 8-13 st mg tablet 00:00: Hospita 00 l clopidogreL Yes Method [facility] (PLAVIX) 75 8-13 st mg tablet 00:00: Hospita 00 l clopidogreL Yes Method [facility] (PLAVIX) 75 8-13 [facility] mg tablet 00:00: Hospita 00 l traMADoL Yes TAKE ONE Metho di (ULTRAM) 50 7-[address] mg tablet 00:00: MOUTH Hospita 00 TWICE l DAILY NEEDED FOR PAIN traMADoL Yes TAKE ONE Metho di (ULTRAM) 50 7-[address] mg tablet 00:00: MOUTH Hospita 00 TWICE l DAILY NEEDED FOR PAIN traMADoL Yes TAKE ONE Metho di (ULTRAM) 50 7-[address] mg tablet 00:00: MOUTH Hospita 00 TWICE l DAILY NEEDED FOR PAIN traMADoL Yes TAKE ONE Metho di (ULTRAM) 50 7-[address] mg tablet 00:00: MOUTH Hospita 00 TWICE l DAILY NEEDED FOR PAIN traMADoL Yes TAKE ONE Metho di (ULTRAM) 50 7-[address] mg tablet 00:00: MOUTH Hospita 00 TWICE l DAILY NEEDED FOR PAIN potassium Yes TAKE BY Metho di chloride 7-[address] (K-DUR) 20 00:00: TABLET Hospi ta MEQ CR 00 DAILY WITH l tablet FOOD potassium Yes TAKE BY Metho di chloride 7-[address] (K-DUR) 20 00:00: TABLET Hospi ta MEQ CR 00 DAILY WITH l tablet FOOD potassium Yes TAKE BY Metho di chloride 7-[address] (K-DUR) 20 00:00: TABLET Hospi ta MEQ CR 00 DAILY WITH l tablet FOOD potassium Yes TAKE BY Metho di chloride 7-[address] (K-DUR) 20 00:00: TABLET Hospi ta MEQ CR 00 DAILY WITH l tablet FOOD potassium Yes TAKE BY Metho di chloride 7-[address] (K-DUR) 20 00:00: TABLET Hospi ta MEQ CR 00 DAILY WITH l tablet FOOD furosemide Yes 1{tbl} Q.5D Take 1 Met hodi (LASIX) 40 6-[address] mg tablet 00:00: mouth 2 Hospi ta 00 (two) l times a day. furosemide Yes 1{tbl} Q.5D Take 1 Met hodi (LASIX) 40 6-[address] mg tablet 00:00: mouth 2 Hospi ta 00 (two) l times a day. furosemide Yes 1{tbl} Q.5D Take 1 Met hodi (LASIX) 40 6-[address] mg tablet 00:00: mouth 2 Hospi ta 00 (two) l times a day. furosemide Yes 1{tbl} Q.5D Take 1 Met hodi (LASIX) 40 6-[address] mg tablet 00:00: mouth 2 Hospi ta 00 (two) l times a day. furosemide Yes 1{tbl} Q.5D Take 1 Met hodi (LASIX) 40 6-[address] mg tablet 00:00: mouth 2 Hospi ta 00 (two) l times a day. Immunizations Ordered Immunization Filled Immunization Date Status Commen ts Source Name Name [place] [id number] 2020-08-08 Completed [facility] t AD26 VACCINATION 00:00:[place] [id number] 2020-08-08 Completed Method[facility] t AD26 VACCINATION 00:00:00 [place] [id number] 2020-08-08 Completed Method[facility] t AD26 VACCINATION 00:00:00 [place] [id number] 2020-08-08 Completed Methodis t AD26 VACCINATION 00:00:00 [place] [id number] 2020-08-08 Completed Methodis t AD26 VACCINATION 00:00:00 Hospital Vital Signs Vital Name Observation Time Observation Value Comments Source HEIGHT 2022-04-12 10:22:00 167.6 cm WEIGHT 2022-04-12 10:22:00 63.504 kg HEIGHT 2022-05-02 10:53:00 167.6 cm WEIGHT 2022-05-02 10:53:00 60.328 kg HEIGHT 2022-05-02 10:53:00 167.6 cm WEIGHT 2022-05-02 10:53:00 60.328 kg HEIGHT 2022-05-02 10:53:00 167.6 cm WEIGHT 2022-05-02 10:53:00 60.328 kg WEIGHT 2022-04-19 07:37:00 60.7 kg HEIGHT 2022-04-16 05:20:00 167.6 cm WEIGHT 2022-04-16 05:20:00 63.504 kg WEIGHT 2022-04-19 07:37:00 60.7 kg HEIGHT 2022-04-16 05:20:00 167.6 cm WEIGHT 2022-04-16 05:20:00 63.504 kg WEIGHT 2022-04-19 07:37:00 60.7 kg HEIGHT 2022-04-16 05:20:00 167.6 cm WEIGHT 2022-04-16 05:20:00 63.504 kg HEIGHT 2022-04-02 10:43:00 167.6 cm WEIGHT 2022-04-02 10:43:00 60.328 kg HEIGHT 2022-04-02 10:43:00 167.6 cm WEIGHT 2022-04-02 10:43:00 60.328 kg HEIGHT 2022-04-02 10:43:00 167.6 cm WEIGHT 2022-04-02 10:43:00 60.328 kg HEIGHT 2022-03-15 15:30:00 167.6 cm WEIGHT 2022-03-15 15:30:00 61.1 kg HEIGHT 2022-03-15 06:01:00 167.6 cm WEIGHT 2022-03-15 06:01:00 61.1 kg HEIGHT 2022-03-12 15:25:00 167.6 cm WEIGHT 2022-03-12 15:25:00 63.504 kg HEIGHT 2022-03-15 15:30:00 167.6 cm WEIGHT 2022-03-15 15:30:00 61.1 kg HEIGHT 2022-03-15 06:01:00 167.6 cm WEIGHT 2022-03-15 06:01:00 61.1 kg HEIGHT 2022-03-12 15:25:00 167.6 cm WEIGHT 2022-03-12 15:25:00 63.504 kg HEIGHT 2022-03-15 15:30:00 167.6 cm WEIGHT 2022-03-15 15:30:00 61.1 kg HEIGHT 2022-03-15 06:01:00 167.6 cm WEIGHT 2022-03-15 06:01:00 61.1 kg HEIGHT 2022-03-12 15:25:00 167.6 cm WEIGHT 2022-03-12 15:25:00 63.504 kg HEIGHT 2022-03-01 09:39:00 157.5 cm WEIGHT 2022-03-01 09:39:00 61.236 kg HEIGHT 2022-03-01 09:39:00 157.5 cm WEIGHT 2022-03-01 09:39:00 61.236 kg HEIGHT 2022-03-01 09:39:00 157.5 cm WEIGHT 2022-03-01 09:39:00 61.236 kg Systolic blood 2021-09-07 14:25:00 153 mm[Hg] [email or web address] Diastolic blood 2021-09-07 14:25:00 78 mm[Hg] [facility]ive [email or web address] Heart rate 2021-09-07 14:25:00 56 /min Universi ty [facility] [place] [facility] Respiratory rate 2021-09-07 14:25:00 19 /min [facility] Oxygen saturation in 2021-09-07 14:25:00 99 /min [facility] Arterial blood by [facility] Pulse oximetry [place] Body temperature 2021-09-07 14:07:00 36.33 Judy [facility] Body height 2021-08-30 18:00:00 167.6 cm Universi ty [facility] [place] [facility] Body weight 2021-08-30 18:00:00 63.504 kg Universi ty [facility] [place] [facility] BMI 2021-08-30 18:00:00 22.60 kg/m2 Universi ty [facility] [place] [facility] Systolic blood 2021-09-07 12:21:00 156 mm[Hg] [email or web address] Diastolic blood 2021-09-07 12:21:00 71 mm[Hg] [email or web address] Heart rate 2021-09-07 12:21:00 60 /min [facility] [place] [facility] [place] [facility] Body temperature 2021-09-07 12:21:00 36.94 Judy [facility] 2021-09-07 12:21:00 15 /min [facility] Oxygen saturation in 2021-09-07 12:21:00 100 /min University Arterial blood by [facility] Pulse oximetry [place] Body height 2021-08-30 18:00:00 167.6 cm [facility] Body weight 2021-08-30 18:00:00 63.504 kg [facility] BMI 2021-08-30 18:00:00 22.60 kg/m2 [facility] Systolic blood 2022-05-02 10:53:00 150 mm[Hg] [facility] Diastolic blood 2022-05-02 10:53:00 67 mm[Hg] [facility] Heart rate 2022-05-02 10:53:00 73 /min [facility] Body temperature 2022-05-02 10:53:00 36.39 Judy [facility] Respiratory rate 2022-05-02 10:53:00 17 /min [facility] Body height 2022-05-02 10:53:00 167.6 cm [facility] Body weight 2022-05-02 10:53:00 60.328 kg [facility] BMI 2022-05-02 10:53:00 21.47 kg/m2 [facility] Oxygen saturation in 2022-05-02 10:53:00 96 /min [facility] Arterial blood by Medical nter Pulse oximetry Body height 2021-10-18 15:40:00 167.6 cm [facility] Body weight 2021-10-18 15:40:00 63.504 kg [facility] BMI 2021-10-18 15:40:00 22.60 kg/m2 [facility] Heart rate 2021-06-29 18:00:00 79 /min [facility] Systolic blood 2021-06-29 17:40:00 146 mm[Hg] Method ist [facility] pressure Diastolic blood 2021-06-29 17:40:00 74 mm[Hg[facility] pressure Respiratory rate 2021-06-29 17:40:00 18 /min [facility] Oxygen saturation in 2021-06-29 17:40:00 97 /min [facility] Arterial blood by Pulse oximetry Body temperature 2021-06-29 17:05:00 36.11 Judy [facility] Procedures Procedure Date / Time Performing Source Performed Clinician XR CHEST 1 VIEW PORTABLE / 2022-04-19 Simeon Jimenez [facility] BEDSIDE 06:52:00 [facility] CBC (HEMOGRAM ONLY) 2022-04-[address] [facility] 03:51:00 [facility] BASIC METABOLIC PANEL 2022-04-[address] [facility] 03:[facility]00 [facility] MAGNESIUM 2022-04-[address] [facility] 03:51:00 [facility] PHOSPHORUS 2022-04-[address] [facility] 03:51:00 [facility] POCT-GLUCOSE METER 2022-04-[address] [facility] 17:25:00 [facility] POCT-GLUCOSE METER 2022-04-[address] [facility] 11:00:00 [facility] POCT-GLUCOSE METER 2022-04-[address] [facility] 07:44:00 [facility] BLOOD GAS, ARTERIAL 2022-04-[address] [facility] 07:37:00 [facility] RRL CRITICAL LABS 2022-04-[address] [facility] (ABG,NA,K,H&H,GLUCOSE) 06:10:00 [facility] enter BLOOD GAS, ARTERIAL 2022-04-[address] [facility] 06:10:00 [facility] SODIUM NA-STAT LAB 2022-04-[address] [facility] 06:10:00 [facility] POTASSIUM-STAT LAB 2022-04-[address] [facility] 06:10:00 [facility] GLUCOSE-STAT LAB 2022-04-[address] [facility] 06:10:00 [facility] HGB/HCT (H&H) - STAT LAB 2022-04-[address] [facility] 06:10:00 [facility] POCT-GLUCOSE METER 2022-04-[address] [facility] 05:29:00 [facility] CBC (HEMOGRAM ONLY) 2022-04-[address] [facility] 02:02:00 [facility] BLOOD GAS, ARTERIAL 2022-04-[address] [facility] 02:02:00 [facility] CALCIUM, IONIZED 2022-04-[address] [facility] 02:02:00 [facility] BASIC METABOLIC PANEL 2022-04-[address] [facility] 02[facility]01:00 [facility] MAGNESIUM 2022-04-[address] [facility] 02:01:00 [facility] PHOSPHORUS 2022-04-[address] [facility] 02:01:00 [facility] POCT-GLUCOSE METER 2022-04-[address] [facility] 02:00:00 [facility] XR CHEST 1 VIEW PORTABLE / 2022-04-18 Simeon Jimenez [facility] BED[facility] 00:32:00 [facility] POCT-GLUCOSE METER 2022-04-[address] [facility] 23:47:00 [facility] POCT-GLUCOSE METER 2022-04-[address] [facility] 22:38:00 [facility] POCT-GLUCOSE METER 2022-04-[address] [facility] 21:41:00 [facility] POCT-GLUCOSE METER 2022-04-[address] [facility] 20:27:00 [facility] RRL CRITICAL LABS 2022-04-[address] [facility] (ABG,NA,K,H&H,GLUCOSE) 19:58:00 [facility] enter BLOOD GAS, ARTERIAL 2022-04-[address] [facility] 19:58:00 [facility] SODIUM NA-STAT LAB 2022-04-[address] [facility] 19:58:00 [facility] POTASSIUM-STAT LAB 2022-04-[address] [facility] 19:58:00 [facility] GLUCOSE-STAT LAB 2022-04-[address] [facility] 19:58:00 [facility] HGB/HCT (H&H) - STAT LAB 2022-04-[address] [facility] 19:58:00 [facility] POCT-GLUCOSE METER 2022-04-[address] [facility] 19:23:00 [facility] SARS-COV2/RT-PCR ([facility] & REF 2022-04-[address] [facility] LABS) 18:35:00 [facility] POCT-GLUCOSE METER 2022-04-[facility] 18:15:00 [facility] POCT-GLUCOSE METER 2022-04-17 [facility] Quintin [facility] 16:43:00 [facility] POCT-GLUCOSE METER 2022-04-17 [facility] Quintin [facility] 14:20:00 [facility] POCT-GLUCOSE METER 2022-04-17 [facility] Quintin [facility] 12:48:00 [facility] POCT-GLUCOSE METER 2022-04-[facility] 11:41:00 [facility] BASIC METABOLIC PANEL 2022-04-[address] [facility] 10:10:00 [facility] MAGNESIUM 2022-04-[address] [facility] 10:10:00 [facility] PHOSPHORUS 2022-04-[address] [facility] 10:10:00 [facility] POCT-GLUCOSE METER 2022-04-[facility] 09:01:00 [facility] POCT-GLUCOSE METER 2022-04-17 [facility] Quintin [facility] 08:28:00 [facility] POCT-GLUCOSE METER 2022-04-17 [facility] Quintin [facility] 07:58:00 [facility] POCT-GLUCOSE METER 2022-04-17 [facility] Quintin [facility] 06:32:00 [facility] POCT-GLUCOSE METER 2022-04-[facility] 05:41:00 [facility] POCT-GLUCOSE METER 2022-04-[address] [facility] 04:30:00 [facility] POCT-GLUCOSE METER 2022-04-[address] [facility] 03:38:00 [facility] CBC (HEMOGRAM ONLY) 2022-04-[address] [facility] 03:32:00 [facility] BASIC METABOLIC PANEL 2022-04-[address] [address] [facility] 03:32:00 [facility] MAGNESIUM 2022-04-[address] [facility] 03:32:00 [facility] PHOSPHORUS 2022-04-[address] [facility] 03:32:00 [facility] RRL CRITICAL LABS 2022-04-[address] [facility] (ABG,NA,K,H&H,GLUCOSE) 03:32:00 [facility] enter BLOOD GAS, ARTERIAL 2022-04-[address] [facility] 03:32:00 [facility] SODIUM NA-STAT LAB 2022-04-[address] [facility] 03:32:00 [facility] POTASSIUM-STAT LAB 2022-04-[address] [facility] 03:32:00 [facility] GLUCOSE-STAT LAB 2022-04-[address] [facility] 03:32:00 [facility] HGB/HCT (H&H) - STAT LAB 2022-04-[address] [facility] 03:32:00 [facility] POCT-GLUCOSE METER 2022-04-[address] [facility] 02:42:00 [facility] POCT-GLUCOSE METER 2022-04-[address] [facility] 01:26:00 [facility] XR CHEST 1 VIEW PORTABLE / 2022-04-17 Simeon Jimenez [facility] 00:49:00 [facility] BLOOD GAS, ARTERIAL 2022-04-[address] [facility] 00:25:00 [facility] RRL CRITICAL LABS 2022-04-[address] [facility] (ABG,NA,K,H&H,GLUCOSE) 00:25:00 [facility] enter SODIUM NA-STAT LAB 2022-04-17 [place], Uselyn [facility] 00:25:00 [facility] POTASSIUM-STAT LAB 2022-04-17 Greenfield, Uselyn [facility] 00:25:00 [facility] GLUCOSE-STAT LAB 2022-04-17 Greenfield, Uselyn [facility] 00:25:00 [facility] HGB/HCT (H&H) - STAT LAB 2022-04-17 Greenfield, Uselyn [facility] 00:25:00 [facility] POCT-GLUCOSE METER 2022-04-[address] [facility] 00:16:00 [facility] POCT-GLUCOSE METER 2022-04-[address] [facility] 22:38:00 [facility] ECG 12-LEAD 2022-04-16 Unknown, Hl7 Doctor [facility] 22:19:36 [facility] ECG 12-LEAD 2022-04-16 Greenfield, Uselyn [facility] 22:19:36 [facility] ECG 12-LEAD 2022-04-16 Unknown, Hl7 Doctor [facility] 22:19:36 [facility] BLOOD GAS, ARTERIAL 2022-04-16 Greenfield, Uselyn [facility] 22:14:00 [facility] XR CHEST 1 VIEW PORTABLE / 2022-04-16 [place], Uselyn [facility] BEDSIDE 22:12:00 [facility] CBC W/PLT COUNT & AUTO 2022-04-16 [place], Uselyn [facility] DIFFERENTIAL 22:07:00 [facility] BASIC METABOLIC PANEL 2022-04-16 [place], Uselyn [facility] 22:07:00 [facility] PROTHROMBIN TIME/INR 2022-04-16 [place], Uselyn [facility] 22:07:00 [facility] APTT 2022-04-16 Green[place], Uselyn [facility] 22:07:00 [facility] FIBRINOGEN 2022-04-16 Green[place], Uselyn [facility] 22:07:00 [facility] LACTIC ACID, ARTERIAL 2022-04-16 [place], Uselyn [facility] 22:07:00 [facility] MAGNESIUM 2022-04-16 [place], Useluke [facility] 22:07:00 [facility] CALCIUM, IONIZED 2022-04-16 [place], Useluke [facility] 22:07:00 [facility] PHOSPHORUS 2022-04-16 Greenfield, Useluke [facility] 22:07:00 [facility] CBC W/PLT COUNT & AUTO 2022-04-16 [place], Adriana [facility] DIFFERENTIAL 22:07:00 [facility] RRL CRITICAL LABS 2022-04-16 Davi, Quintin Paul [facility] (ABG,NA,K,H&H,GLUCOSE) 21:13:55 [facility] CALCIUM, IONIZED 2022-04-16 Davi, Quintin [facility] 21:13:55 [facility] BLOOD GAS, ARTERIAL 2022-04-16 Davi, Quintin Paul [facility] 21:13:55 [facility] SODIUM NA-STAT LAB 2022-04-16 Davi, Quintin Paul [facility] 21:13:55 [facility] Center POTASSIUM-STAT LAB 2022-04-16 Davi, Quintin Paul [facility] 21:13:55 [facility] GLUCOSE-STAT LAB 2022-04-16 Davi, Quintin Paul [facility] 21:13:55 [facility] HGB/HCT (H&H) - STAT LAB 2022-04-16 Davi, Quintin Paul [facility] 21:13:55 [facility] IRRIGATION AND DEBRIDEMENT, 2022-04-[address] [facility] WOUND, HEAD AND NECK REGION 20:37:00 [facility] TISSUE EXAM 2022-04-16 Sadia Quintin Callahan [facility] 09:14:00 [facility] BLOOD GAS, ARTERIAL 2022-04-16 [address] [facility] 08:41:29 [facility] GLUCOSE-STAT LAB 2022-04-[address] [facility] 08:41:29 [facility] HGB/HCT (H&H) - STAT LAB 2022-04-[address] [facility] 08:41:29 [facility] Center HEMOGLOBIN-STAT LAB 2022-04-[address] [facility] 08:41:29 [facility] SODIUM NA-STAT LAB 2022-04-[address] [facility] 08:41:29 [facility] POTASSIUM-STAT LAB 2022-04-[address] [facility] 08:41:29 [facility] ENDARTERECTOMY, CAROTID 2022-04-[address] [facility] 07:53:00 [facility] HEMOGLOBIN A1C 2022-04-[address] [facility] 06:48:00 [facility] TSH/FREE T4 IF INDICATED 2022-04-[address] [facility] 06:23:00 [facility] RPR 2022-04-[address] [facility] 06:23:00 [facility] T4, FREE 2022-04-[address] [facility] 06:23:00 [facility] ECG 12-LEAD 2022-04-16 Unknown, Hl7 Doctor [facility] 05:59:59 [facility] ECG 12-LEAD 2022-04-16 [facility] 05:59:59 [facility] ECG 12-LEAD 2022-04-16 Unknown, Hl7 Doctor [facility] 05:59:59 [facility] CTA BRAIN 2022-04-[address] [facility] 05:48:00 [facility] CTA CAROTID 2022-04-[address] [facility] 05:48:[address] [facility] CT BRAIN WITHOUT IV CONTRAST 2022-04-16 [facility] 05:33:00 [facility] CRITICAL CARE 2022-04-16 [facility] 05:26:25 [facility] BASIC METABOLIC PANEL 2022-04-16 [facility] 05:26:00 [facility] CBC W/PLT COUNT & AUTO 2022-04-16 [facility] DIFFERENTIAL 05:26:00 [facility] HIGH SENSITIVITY TROPONIN I 2022-04-16 Khozein-Alegre, [facility] 05:26:00 [facility] PT/APTT 2022-04-16 Khozein-Alegre, [facility] 05:26:00 [facility] LIPID PANEL 2022-04-[address] [facility] 05:26:00 [facility] CBC W/PLT COUNT & AUTO 2022-04-16 [facility] DIFFERENTIAL 05:26:00 [facility] POCT-GLUCOSE METER 2022-04-16 [facility] 05:25:00 [facility] EKG-SCANNED 2022-04-16 Provider, Donnie [facility] 00:00:00 [facility] CBC W/PLT COUNT & AUTO 2022-04-02 Vallejo, Asmaa [facility] DIFFERENTIAL 13:26:00 [facility] COMPREHENSIVE METABOLIC PANEL 2022-04-02 Vallejo, Asmaa [facility] 13:26:00 [facility] PT/APTT 2022-04-02 Vallejo, Asmaa [facility] 13:26:00 [facility] Center TYPE AND SCREEN, AUTOMATED 2022-04-02 [place]lejo, [facility]a [facility] 13:26:00 [facility] CBC W/PLT COUNT & AUTO 2022-04-02 Vallejo, Asmaa [facility] DIFFERENTIAL 13:26:00 [facility] TISSUE EXAM 2022-03-[address] [facility] 08:28:00 [facility] ENDARTERECTOMY, CAROTID 2022-03-[address] [facility] 07:25:00 [facility] POCT-GLUCOSE METER 2022-03-[address] [facility] 06:38:00 [facility] ABORH, MANUAL 2022-03-[address] [facility] 06:06:00 [facility] ECG 12-LEAD 2022-03-01 Unknown, Hl7 Doctor [facility] 11:05:36 [facility] ECG 12-LEAD 2022-03-[address] [facility] 11:05:36 [facility] ECG 12-LEAD 2022-03-01 Unknown, Hl7 Doctor [facility] 11:05:36 [facility] CBC W/PLT COUNT & AUTO 2022-03-01 Quintin Jacques [facility] 10:53:00 [facility] BASIC METABOLIC PANEL 2022-03-01 Quintin Jacques [facility] 10:53:00 [facility] APTT 2022-03-01 [facility] 10:53:00 [facility] PROTHROMBIN TIME/INR 2022-03-01 Quintin Jacques [facility] 10:53:00 [facility] TYPE AND SCREEN, AUTOMATED 2022-03-01 [facility] 10:53:00 [facility] CBC W/PLT COUNT & AUTO 2022-03-01 Quintin Jacques [facility] 10:53:00 [facility] PHACOEMULSIFICATION OF 2021-09-07 Xi [facility] CATARACT WITH INTRAOCULAR 13:31:00 Hayder Crum Caleb LENS IMPLANT POCT GLUCOSE (AUTOMATED) 2021-09-07 Xi [facility] 12:16:00 [facility] POCT GLUCOSE (AUTOMATED) 2021-09-07 Xi [facility] 12:16:00 [facility] PATIENT QUESTIONNAIRE 2021-09-07 Doctor Unassigned, [facility] 05:01:00 [facility] ASSIGNMENT OF BENEFITS 2021-08-29 Doctor Unassigned, [facility] 15:23:50 [facility] HC NERVE BLOCK BRACHIAL 2021-06-30 [facility] 13:48:59 POC GLUCOSE 2021-06-29 [facility] 16:30:00 DC AN ELECTIVE SUPRAGLOTTIC 2021-06-29 Andrews Gongora [facility] AIRWAY 14:52:00 REPAIR, ROTATOR CUFF, 2021-06-29 Ion Muse [facility] ARTHROSCOPIC 14:42:00 POC GLUCOSE 2021-06-29 [facility] 13:31:00 COVID-19 QUALITATIVE RT-PCR 2021-06-13 Federica Garcia [facility] 16:21:00 COVID-19 OMICRON VARIANT 2021-06-13 [facility] QUALITATIVE RT-PCR 16:21:00 BASIC METABOLIC PANEL 2021-06-13 [facility] 16:21:00 ESTIMATED GFR 2021-06-13 [facility] Hospi mina 16:21:00 MRI SHOULDER WO CONTRAST LEFT 2021-05-16 RutledgeIon Parker brown [facility] 16:09:33 X RAYS NO CHARGE MRI 2021-05-16 RutledgeIon [facility] 15:24:55 Plan of Care Planned Activity Planned Date Details Comments Source Future Scheduled 2023-05-[address] [facility] 00:00[facility]00 [facility] (12+) [code = Tobacco Cessation Counseling and Screening (12+)] Future Scheduled 2023-05-[address] [facility] Test 00:00:00 [facility] Screening (12+) [code = Tobacco Cessation Counseling and Screening (12+)] Future Scheduled 2023-05-[address] [facility] Test 00:00:00 [facility] Screening (12+) [code = Tobacco Cessation Counseling and Screening (12+)] Future Scheduled 2023-03-[address] [facility] Test 00:00:00 [facility] Screening (12+) [code = Tobacco Cessation Counseling and Screening (12+)] Future Scheduled 2023-03-[address] [facility] Test 00:00:00 [facility] Screening (12+) [code = Tobacco Cessation Counseling and Screening (12+)] Future Scheduled 2022-05-03 Hepatitis C screening [facility] Test 14:27:03 (procedure) [code = [id number]] Future Scheduled 2022-05-03 SHINGLES VACCINES (1 Met [facility] Test 14:27:03 of 2) [code = SHINGLES VACCINES (1 of 2)] Future Scheduled 2022-05-03 [address]UM[address] [facility] Test 14:27:03 VACCINE (1 - PCV) [code = 65+ PNEUMOCOCCAL VACCINE (1 - PCV)] Future Scheduled 2022-05-03 COVID-19 VACCINE (2 - [facility] Test 14:27:03 Booster for Vero series) [code = COVID-19 VACCINE (2 - Booster for Vero series)] Future Scheduled 2022-05-03 INFLUENZA VACCINE [facility] Test 14:27:03 [code = INFLUENZA VACCINE] Future Scheduled 2022-05-03 Hepatitis C screening [facility] Test 14:27:03 (procedure) [code = 807422038] Future Scheduled 2022-05-03 SHINGLES VACCINES (1 Met [facility] Test 14:27:03 of 2) [code = SHINGLES VACCINES (1 of 2)] Future Scheduled 2022-05-03 65+ PNEUMOCOCCAL [facility] Test 14:27:03 VACCINE (1 - PCV) [code = 65+ PNEUMOCOCCAL VACCINE (1 - PCV)] Future Scheduled 2022-05-03 COVID-19 VACCINE (2 - [facility] 14:27:03 Booster for Vero series) [code = COVID-19 VACCINE (2 - Booster for Vero series)] Future Scheduled 2022-05-03 INFLUENZA VACCINE Method [facility] Test 14:27:03 [code = INFLUENZA VACCINE] Future Scheduled 2022-05-03 Hepatitis C screening [facility] Test 14:27:03 (procedure) [code = [id number]] Future Scheduled 2022-05-03 SHINGLES VACCINES (1 Met [facility] Test 14:27:03 of 2) [code = SHINGLES VACCINES (1 of 2)] Future Scheduled 2022-05-03 65+ PNEUMOCOCCAL [facility] Test 14:27:03 VACCINE (1 - PCV) [code = 65+ PNEUMOCOCCAL VACCINE (1 - PCV)] Future Scheduled 2022-05-03 COVID-19 VACCINE (2 - [facility] Hospital Test 14:27:03 Booster for Vero series) [code = COVID-19 VACCINE (2 - Booster for Vero series)] Future Scheduled 2022-05-03 INFLUENZA VACCINE Method [facility] Test 14:27:03 [code = INFLUENZA VACCINE] Future Scheduled 2022-05-03 Hepatitis C screening [facility] Test 14:27:03 (procedure) [code = [id number]] Future Scheduled 2022-05-03 SHINGLES VACCINES (1 Met [facility] Test 14:27:03 of 2) [code = SHINGLES VACCINES (1 of 2)] Future Scheduled 2022-05-03 65+ PNEUMOCOCCAL [facility] Test 14:27:03 VACCINE (1 - PCV) [code = 65+ PNEUMOCOCCAL VACCINE (1 - PCV)] Future Scheduled 2022-05-03 COVID-19 VACCINE (2 - [facility] Hospital Test 14:27:03 Booster for Vero series) [code = COVID-19 VACCINE (2 - Booster for Vero series)] Future Scheduled 2022-05-03 INFLUENZA VACCINE Method [facility] Test 14:27:03 [code = INFLUENZA VACCINE] Future Scheduled 2022-05-02 Hepatitis C screening [facility] Test 18:38:14 (procedure) [code = [id number]] Future Scheduled 2022-05-02 SHINGLES VACCINES (1 Met [facility] Test 18:38:14 of 2) [code = SHINGLES VACCINES (1 of 2)] Future Scheduled 2022-05-02 65+ [facility] 18:38:14 VACCINE (1 - PCV) [code = 65+ PNEUMOCOCCAL VACCINE (1 - PCV)] Future Scheduled 2022-05-02 COVID-19 VACCINE (2 - [facility] Hospital Test 18:38:14 Booster for Vero series) [code = COVID-19 VACCINE (2 - Booster for Vero series)] Future Scheduled 2022-05-02 INFLUENZA VACCINE [facility] Test 18:38:14 [code = INFLUENZA VACCINE] Future Scheduled 2022-04-[address] [facility] 00:00:00 WELLNESS (YEAR 2 or Medical Center FIRST YEAR if no IPPE) [code = MEDICARE ANNUAL WELLNESS (YEAR 2 or FIRST YEAR if no IPPE)] Future Scheduled 2022-04-[address] [facility] 00:00:00 WELLNESS (YEAR 2 or Medical Center FIRST YEAR if no IPPE) [code = MEDICARE ANNUAL WELLNESS (YEAR 2 or FIRST YEAR if no IPPE)] Future Scheduled 2022-04-[address] [facility] 00:00:00 WELLNESS (YEAR 2 or Medical Center FIRST YEAR if no IPPE) [code = MEDICARE ANNUAL WELLNESS (YEAR 2 or FIRST YEAR if no IPPE)] Future Scheduled 2022-04-[address] [facility] 00:00:00 WELLNESS (YEAR 2 or Medical Center FIRST YEAR if no IPPE) [code = MEDICARE ANNUAL WELLNESS (YEAR 2 or FIRST YEAR if no IPPE)] Future Scheduled 2022-04-[address] [facility] 00:00:00 WELLNESS (YEAR 2 or Medical Center FIRST YEAR if no IPPE) [code = MEDICARE ANNUAL WELLNESS (YEAR 2 or FIRST YEAR if no IPPE)] Future Scheduled 2022-04-[address] [facility] Test 00:00:00 (12+) [code = Medical Center DEPRESSION SCREENING (12+)] Future Scheduled 2022-04-29 FALLS RISK SCREENING [facility] Test 00:00:00 [code = FALLS RISK Medical C enter SCREENING] Future Scheduled 2022-04-[address] [facility] Test 00:00:00 (12+) [code = Medical Center DEPRESSION SCREENING (12+)] Future Scheduled 2022-04-29 FALLS RISK SCREENING [facility] Test 00:00:00 [code = FALLS RISK Medical C enter SCREENING] Future Scheduled 2022-03-[address] [facility] 00:[facility]:00 measurement Medical Center (procedure) [code = 85405640] Future Scheduled 2022-03-[address] [facility] [facility] 00:00:00 measurement Medical Center (procedure) [code = 33574307] Future Scheduled 2022-03-[address] [facility] 00:00:00 measurement Medical Center (procedure) [code = 61704996] Future Scheduled 2022-03-[address] [facility] [facility] 00:00:00 measurement Medical Center (procedure) [code = 34658475] Future Scheduled 2022-03-[address] [facility] [facility] 00:00:00 measurement Medical Center (procedure) [code = 76179231] Future Scheduled 2021-12-28 INFLUENZA VACCINE (#1[facility]00 [code = INFLUENZA Medical Ce nter VACCINE (#1)] Future Scheduled 2021-12-28 INFLUENZA VACCINE (#1) [facility] 00:00:00 [code = INFLUENZA Medical Ce nter VACCINE (#1)] Future Scheduled 2021-12-28 INFLUENZA VACCINE (#1) [facility] 00:00:00 [code = INFLUENZA Medical Ce nter VACCINE (#1)] Future Scheduled 2021-12-28 INFLUENZA VACCINE (#1) [facility] 00:00:00 [code = INFLUENZA Medical Ce nter VACCINE (#1)] Future Scheduled 2021-12-28 INFLUENZA VACCINE (#1) [facility] 00:00:00 [code = INFLUENZA Medical Ce nter VACCINE (#1)] Future Scheduled 2020-10-03 COVID-19 VACCINE (2 [facility] series) [code = COVID-19 VACCINE (2 - Booster for [facility]ero series)] Future Scheduled 2020-10-03 COVID-19 VACCINE (2 - [facility]:00 [facility] series) [code = COVID-19 VACCINE (2 - Booster for [facility]ero series)] Future Scheduled 2020-10-03 COVID-19 VACCINE (2 - [facility] 00:00:00 [facility] series) [code = COVID-19 VACCINE (2 - Booster for Vero series)] Future Scheduled 2020-10-03 COVID-19 VACCINE (2 - [facility] 00:00:00 [facility] series) [code = COVID-19 VACCINE (2 - Booster for Vero series)] Future Scheduled 2020-10-03 COVID-19 VACCINE (2 - [facility] 00:00:00 [facility] series) [code = COVID-19 VACCINE (2 - Booster for Vero series)] Future Scheduled 1993 SHINGLES VACCINES ([address] [facility] Test 00:00:00 of 2) [code = SHINGLES Medic al Center VACCINES (1 of 2)] Future Scheduled 1993 SHINGLES VACCINES ([address] [facility] Test 00:00:00 of 2) [code = SHINGLES Medic al Center VACCINES (1 of 2)] Future Scheduled 1993 SHINGLES VACCINES ([address] [facility] Test 00:00:00 of 2) [code = SHINGLES Medic al Center VACCINES (1 of 2)] Future Scheduled 1993 SHINGLES VACCINES ([address] [facility] Test 00:00:00 of 2) [code = SHINGLES Medic al Center VACCINES (1 of 2)] Future Scheduled 1993 SHINGLES VACCINES ([address] [facility] Test 00:00:00 of 2) [code = SHINGLES Medic al Center VACCINES (1 of 2)] Future Scheduled 1962 DTAP/TDAP/TD VACCINES [facility] 00:00:00 (1 - Tdap) [code = Medical C enter DTAP/TDAP/TD VACCINES (1 - Tdap)] Future Scheduled 1962 DTAP/TDAP/TD VACCINES [facility] 00:00:00 (1 - Tdap) [code = Medical C enter DTAP/TDAP/TD VACCINES (1 - Tdap)] Future Scheduled 1962 DTAP/TDAP/TD VACCINES [facility] 00:00:00 (1 - Tdap) [code = Medical C enter DTAP/TDAP/TD VACCINES (1 - Tdap)] Future Scheduled 1962 DTAP/TDAP/TD VACCINES [facility] 00:00:00 (1 - Tdap) [code = Medical C enter DTAP/TDAP/TD VACCINES (1 - Tdap)] Future Scheduled 1962 DTAP/TDAP/TD VACCINES [facility] 00:00:00 (1 - Tdap) [code = Medical C enter DTAP/TDAP/TD VACCINES (1 - Tdap)] Future Scheduled 1961 HEPATITIS C [facility]CRE[facility]ING [facility] 00:00:00 [code = HEPATITIS C Medical Center SCREENING] Future Scheduled 1961 HEPATITIS C [facility]CRE[facility] 00:00:00 [code = HEPATITIS C Medical Center SCREENING] Future Scheduled 1961 HEPATITIS C [facility]CRE[facility] 00:00:00 [code = HEPATITIS C Medical Center SCREENING] Future Scheduled 1961 HEPATITIS C [facility] 00:00:00 [code = HEPATITIS C Medical Center SCREENING] Future Scheduled 1961 HEPATITIS C [facility]CRE[facility] 00:00:00 [code = HEPATITIS C Medical Center SCREENING] Future Scheduled [address] DIABETIC EYE EXAM [facility] 00:00:00 [code = DIABETIC EYE Medical Center EXAM] Future Scheduled [address] [facility] 00:00:00 examination Medical Center (regime/therapy) [code = 123502330] Future Scheduled 1953 Urine screening for [facility] 00:00:00 protein (procedure) Medical Center [code = 507414536] Future Scheduled [address] DIAB[address] EYE EXAM [facility] 00:00:00 [code = DIABETIC EYE Medical Center EXAM] Future Scheduled [address] [facility] Test 00:00:00 examination Medical Center (regime/therapy) [code = 795664897] Future Scheduled 1953 Urine screening for [facility] 00:00:00 protein (procedure) Medical Center [code = 851808834] Future Scheduled [address] DIABETIC EYE EXAM [facility] 00:00:00 [code = DIABETIC EYE Medical Center EXAM] Future Scheduled [address] [facility] Test 00:00:00 examination Medical Center (regime/therapy) [code = 527695120] Future Scheduled 1953 Urine screening for [facility] 00:00:00 protein (procedure) Medical Center [code = 047620039] Future Scheduled [address] DIABETIC EYE EXAM [facility] 00:00:00 [code = DIABETIC EYE Medical Center EXAM] Future Scheduled [address] [facility] Test 00:00:00 examination Medical Center (regime/therapy) [code = 061430718] Future Scheduled 1953 Urine screening for [facility] 00:00:00 protein (procedure) Medical Center [code = 164267171] Future Scheduled [address] DIAB[address]IC EYE EXAM [facility] 00:00:00 [code = DIABETIC EYE Medical Center EXAM] Future Scheduled [address] [facility] Test 00:00:00 examination Medical Center (regime/therapy) [code = 507487974] Future Scheduled 1953 Urine screening for [facility] 00:00:00 protein (procedure) Medical Center [code = 412687708] Future Scheduled 1949 PNEUMOCOCCAL 65+ Y[facility] Test 00:00:00 (1 - PCV) [code = Medical Ce nter PNEUMOCOCCAL 65+ YRS (1 - PCV)] Future Scheduled 1949 PNEUMOCOCCAL 65+ YRS [facility] Test 00:00:00 (1 - PCV) [code = Medical Ce nter PNEUMOCOCCAL 65+ YRS (1 - PCV)] Future Scheduled 1949 PNEUMOCOCCAL 65+ YRS [facility] Test 00:00:00 (1 - PCV) [code = Medical Ce nter PNEUMOCOCCAL 65+ YRS (1 - PCV)] Future Scheduled 1949 PNEUMOCOCCAL 65+ YRS [facility] Test 00:00:00 (1 - PCV) [code = Medical Ce nter PNEUMOCOCCAL 65+ YRS (1 - PCV)] Future Scheduled 1949 PNEUMOCOCCAL 65+ YRS [facility] Test 00:00:00 (1 - PCV) [code = Medical Ce nter PNEUMOCOCCAL 65+ YRS (1 - PCV)] Encounters Start End Encounter Admission Attending Care Care Encounter Source Date/Time Date/Time Type Type Clinicians Facility Department ID 2022-04-04 Inpatient CIRO GUERRA Surgery [id number] [facility] 10:10:50 QUINTIN 2022-05-02 2022-05-02 Office Sadia [facility] [id number] 11:00:00 11:30:00 [facility] 2022-05-02 2022-05-02 Office Sadia [facility] [id number] 11:00:00 11:30:00 Visit [facility] 2022-05-02 2022-05-02 Outpatient L[facility]AC[facility] [id number] [facility] 10:49:19 10:49:19 QUINTIN 2022-04-23 2022-04-23 Telephone Daniele [facility] [id number] 00:00[facility]00 00:00:00 [facility] 2022-04-23 2022-04-23 Telephone Daniele [facility] [id number] 00:00[facility]00 00:00:00 [facility] 2022-04-16 2022-04-19 Inpatient ER DEE DEE [facility] Surgery [id number] [facility] 05:43:00 13:17:00 CRISTIANO 2022-04-16 2022-04-19 Hospital ER Chen Alfaro TDamaris [facility] [id number] [facility] 05:43:00 13:17:00 Encounter Jesus Fischer, [facility], Cristiano [facility], Atul 2022-04-16 2022-04-19 [facility] Chen Asencio [facility] [id number] 05:43:00 13:17:00 Encounter Jesus Fischer, [facility], Cristiano [facility] Atul 2022-04-16 2022-04-16 Surgery Sadia, [facility] [id number] 20:45:00 22:47:00 [facility] 2022-04-16 2022-04-16 Surgery Sadia, [facility] [id number] 20:45:00 22:47:00 [facility] 2022-04-16 2022-04-16 Anesthesia DaviQuintin aguero [facility] [id number] 20:57:00 21:58:00 [facility]22-[facility] 2022-04-16 Anesthesia DaviQuintin aguero [facility] [id number] 20:57:00 21:58:00 Event Bry [facility] 2022-04-16 2022-04-16 Anesthesia Scott delongiott [facility] [id number] [facility] 07:54:00 12:45:00 Event [facility] 2022-04-16 2022-04-16 [facility] [id number] [facility] 07:54:00 12:45:00 Event [facility] 2022-04-16 2022-04-16 Surgery [facility] [id number] 07:30:00 10:13:00 [facility] 2022-04-16 2022-04-16 Surgery Sadia [facility] [id number] 07:30:00 10:13:00 [facility] 2022-04-16 2022-04-16 Outpatient BCM BCM [id number] [facility] 05:43:00 05:43:00 [facility] 2022-04-16 2022-04-16 Outpatient BCM BCM [id number] [facility] 05:43:00 05:43:00 [facility] 2022-04-16 2022-04-16 Outpatient BCM BCM [id number] [facility] 00:00:00 05:42:00 [facility] 2022-04-16 2022-04-16 Orders [facility] [id number] [facility] 00:00:00 00:00:00 [facility] 2022-04-16 2022-04-16 Travel [facility] [id number] [facility] 00:[facility] 00:[facility]:00 [facility] 2022-04-16 2022-04-16 Travel [facility] [id number] [facility] 00:[facility] 00:00:00 [facility] 2022-04-16 2022-04-16 Orders [facility] [id number] [facility] 00:00:00 00:00:00 [facility] 2022-04-12 2022-04-12 Outpatient EL SLE SLE [id number] [facility] 00:00:00 00:00:00 2022-04-12 2022-04-12 Travel [facility] [id number] [facility] 00:[facility] 00:00:00 [facility] 2022-04-12 2022-04-12 Travel [facility] [id number] [facility] 00:[facility] 00:00:00 [facility] 2022-04-02 2022-04-02 Office LARRY Sadia [facility] [id number] 11:00:00 11:30:00 Visit [facility] 2022-04-02 2022-04-02 Office Sadia [facility] [id number] 11:00:00 11:30:00 Visit [facility] 2022-04-02 2022-04-02 Outpatient CIRO GUERRA [facility] [id number] SLE 10:35:04 10:35:04 QUINTIN 2022-03-28 2022-03-28 Outpatient CIRO JACQUES [facility] [id number] [facility] 00:00:00 00:00:00 [facility] 2022-03-15 2022-03-16 Inpatient CIRO GUERRA Surgery [id number] [facility] 05:42:00 18:07:00 [facility] 2022-03-15 2022-03-16 [facility] [id number] 05:42:00 18:07:00 Encounter [facility] 2022-03-15 2022-03-16 [facility] [id number] [facility] 05:42:00 18:07:00 Encounter [facility] 2022-03-15 2022-03-15 Outpatient [facility] [id number] [facility] 05:42:00 23:59:00 Yannick 2022-03-15 2022-03-15 [facility] [id number] 07:30:00 10:15:00 [facility] 2022-03-15 2022-03-15 [facility] [id number] 07:30:00 10:15:00 [facility] 2022-03-15 2022-03-[address] [facility] [id number] [facility] 07:27:00 09:22:00 Event , [facility] 2022-03-15 2022-03-[address] [facility] [id number] [facility] 07:27:00 09:22:00 Event , [facility] 2022-03-12 2022-03-12 Outpatient CIRO GUERRA SLE [id number] [facility] 00:00:00 00:00:00 QUINTIN 2022-03-12 2022-03-12 Travel [facility] [id number] [facility] 00:[facility]00 00:00:00 [facility] 2022-03-12 2022-03-12 Travel [facility] [id number] [facility] 00:[facility]00 00:00:00 [facility] 2022-03-01 2022-03-01 Office LARRY Jacques [facility] [id number] 10:00:00 10:30:00 Visit [facility] 2022-03-01 2022-03-01 Office Sadia [facility] [id number] 10:00:00 10:30:00 Visit [facility] 2022-03-01 2022-03-01 Outpatient CIRO GUERRA [facility] [id number] SLE 09:35:57 09:35:57 QUINTIN 2022-03-01 2022-03-01 Orders [facility] [id number] 00:00:00 00:00:00 Only [facility] 2022-03-01 2022-03-01 Orders [facility] [id number] 00:00:00 00:00:00 Only [facility] 2021-10-18 2021-10-18 Office Gonsalo, 1.2.840.1 [id number] Methodi 10:50:00 10:56:06 Visit Ion Hicks 33443.1.[address] 3.430.2.7 Hospit a .3.392236 l .8 2021-10-18 2021-10-18 Office Gonsalo 1.2.840.1 [id number] Methodi 10:50:00 10:56:06 Visit Ion Hicks 11681.1.[address] 3.430.2.7 Hospit a .3.028368 l .8 2021-10-18 2021-10-18 Travel 1.2.840.1 1.2.280.626 8905 [id number] Methodi 00:00:00 00:00:[address] 3.430.2.7 0.2.7.3.698 Ho spita .3.762504 084.8 l .8 2021-10-18 2021-10-18 Travel 1.2.840.1 1.2.433.953 3582 [id number] Methodi 00:00:00 00:00:[address] 3.430.2.7 0.2.7.3.698 Ho spita .3.541056 084.8 l .8 2021-09-07 2021-09-07 Outpatient R [facility] [id number] Univers 07:04:00 09:30:00 NEHEMIAS mckeon of [facility] 2021-09-07 2021-09-07 [facility] 1.2.840.114 [id number] Univers 07:04:00 09:30:00 Encounter Nehemias GASCA 350.1.13.10 ity of [place] [phone] [facility] [address] 2021-09-07 2021-09-07 Surgery [facility] 1.2.840.114 [id number] Univers 08:28:00 09:04:00 Nehemias GASCA 350.1.13.10 i ty [place] [id number] [facility] [address] 2021-09-07 2021-09-07 Orders Doctor JIMENEZ 1.2.840.114 [id number] Univers 00:00:00 00:00:00 Only Unassigned, ALBERT 350.1.13.10 ity of [place] [facility] 4.2.7.2.686 Luke as [phone] [facility] 00[address] Branch 2021-09-06 2021-09-06 Office Muse, 1.2.840.1 [id number] Methodi 10:30:00 10:56:19 Visit Ion Hicks 54887.1.[address] 3.430.2.7 Hospit a .3.047816 l .8 2021-09-06 2021-09-06 Office Muse, 1.2.840.1 [id number] 7876 Methodi 10:30:00 10:56:19 Visit Ion Hicks 21903.1.[address] 3.430.2.7 Hospit a .3.821803 l .8 2021-09-06 2021-09-06 Travel 1.2.840.1 1.2.950.935 5046 [id number] Methodi 00:00:00 00:00:[address] 3.430.2.7 0.2.7.3.698 Ho spita .3.955356 084.8 l .8 2021-09-06 2021-09-06 Travel 1.2.840.1 1.2.353.860 8705 [id number] Methodi 00:00:00 00:00:[address] 3.430.2.7 0.2.7.3.698 Ho spita .3.460106 084.8 l .8 2021-09-05 2021-09-05 Laboratory Only, Melanie Test [facility] 1.2.840. 114 [id number] [facility] 09:30:00 09:45:00 Only Nehemias Layne 350.1.1 3.10 [facility] 4.2.7.2.686 [facility] [phone] [place] [address] Branch 2021-09-05 2021-09-05 Outpatient R XI [facility] [id number] Univers 09:30:00 09:30:00 NEHEMIAS mckeon [facility] 2021-08-29 2021-08-29 Dial Refinisher Melanie Robbins Lab Main [facility] 1.2.8 40.114 [id number] [facility] 10:45:00 11:00:00 Visit Nehemias Layne 350.1.1 3.10 ity of [place] 4.2.7.2.686 [facility] [phone] Me dical [address] 2021-08-29 2021-08-29 Outpatient R XI, [facility] [id number] Univers 10:45:00 10:45:00 NEHEMIAS mckeon of [facility] 2021-08-29 2021-08-29 Orders Doctor TONY 1.2.840.114 [id number] Univers 00:00:00 00:00:00 Only Unassigned, ALBERT 350.1.13.10 ity of [place] [facility] 4.2.7.2.686 Luke as [phone] [address] 2021-08-09 2021-08-09 Office Muse, 1.2.840.1 [id number] 5133 Methodi 10:50:00 11:17:57 Visit Ion Hicks 66801.1.[address] 3.430.2.7 Hospit a .3.801957 l .8 2021-08-09 2021-08-09 Office Muse, 1.2.840.1 [id number] 7350 Methodi 10:50:00 11:17:57 Visit Ion Hicks 24969.1.[address] 3.430.2.7 Hospit a .3.880773 l .8 2021-08-09 2021-08-09 Travel 1.2.840.1 1.2.438.601 6801 [id number] Methodi 00:00:00 00:00:[address] 3.430.2.7 0.2.7.3.698 Ho spita .3.739042 084.8 l .8 2021-08-09 2021-08-09 Travel 1.2.840.1 1.2.945.615 5616 362563 Methodi 00:00:00 00:00:[address] 3.430.2.7 0.2.7.3.698 Ho spita .3.063773 084.8 l .8 2021-07-14 2021-07-14 Office Muse, 1.2.840.1 [id number] 4517 Methodi 10:20:00 10:39:33 Visit Ion Hicks 12663.1.[address] 3.430.2.7 Hospit a .3.003122 l .8 2021-07-14 2021-07-14 Office Muse, 1.2.840.1 [id number] 5817 Methodi 10:20:00 10:39:33 Visit Ion Hicks 43555.1.[address] 3.430.2.7 Hospit a .3.397741 l .8 2021-07-14 2021-07-14 Travel 1.2.840.1 1.2.226.896 5205 086304 Methodi 00:00:00 00:00:[address] 3.430.2.7 0.2.7.3.698 Ho spita .3.382207 084.8 l .8 2021-07-14 2021-07-14 Travel 1.2.840.1 1.2.074.002 1282 525245 Methodi 00:00:00 00:00:[address] 3.430.2.7 0.2.7.3.698 Ho spita .3.434190 084.8 l .8 2021-07-10 2021-07-10 Outpatient COH CO[facility] PENFIOQ YYY COH 00:00:00 00:00:00 GBBP-01974 512 2021-07-06 2021-07-06 Orders Sena 1.2.840.1 [id number] 8817 Methodi 00:00:00 00:00:00 Only Ben, 47247.1.[address] [place] 3.430.2.7 Hospit a .3.546911 l .8 2021-07-06 2021-07-06 Orders Sena 1.2.840.1 [id number] 0540 Methodi 00:00:00 00:00:00 Only Ben, 41876.1.[address] [place] 3.430.2.7 Hospit a .3.298488 l .8 2021-07-06 2021-07-06 Orders Sena 1.2.840.1 [id number] 1647 Methodi 00:00:00 00:00:00 Only Ben, 62959.1.[address] [place] 3.430.2.7 Hospit a .3.785572 l .8 2021-07-03 2021-07-03 Outpatient COH COH PENFIOQ YYY COH 00:00:00 00:00:00 [facility]-77580 310 2021-06-30 2021-06-30 Telephone Moss, 1.2.840.1 [id number] 2099 766904 Methodi 00:00:00 00:00:[address] 3.430.2.7 Hospit a .3.120311 l .8 2021-06-29 2021-06-29 Hospital [place], 1.2.840.1 [id number] 92471 Methodi 06:06:00 12:15:00 Encounter Ion Hicks 67825.1.[address] 3.430.2.7 Hospit a .3.354693 l .8 2021-06-29 2021-06-29 Surgery [facility] 1.2.840.1 [id number] 4559 Methodi 09:00:00 11:35:00 Ion Hicks 19798.1.[address] 3.430.2.7 Hospit a .3.994263 l .8 2021-06-29 2021-06-29 Anesthesia Navneet Navarrete 1.2.840.1 534808 025 [id number] Methodi 08:42:00 10:23:00 Event Federica Garcia 38830.1.[address] 3.430.2.7 Hospit a .3.602648 l .8 2021-06-29 2021-06-29 Orders Sena 1.2.840.1 [id number] 3223 Methodi 00:00:00 00:00:00 Only Ben, 38448.1.[address] [place] 3.430.2.7 Hospit a .3.307949 l .8 2021-06-28 2021-06-28 Orders [place], 1.2.840.1 [id number] 7469 Methodi 00:00:00 00:00:00 Only Ion Hicks 68427.1.[address] 3.430.2.7 Hospit a .3.587215 l .8 2021-06-26 2021-06-26 Transcribe Muse, 1.2.840.1 [id number] 859 [id number] Methodi 00:00:00 00:00:00 Orders Ion Hicks 27276.1.[address] 3.430.2.7 Hospit a .3.710083 l .8 2021-06-14 2021-06-14 Telephone Muse, 1.2.840.1 [id number] 2099 130874 Methodi 00:00:00 00:00:00 Ion Hicks 35026.1.[address] 3.430.2.7 Hospit a .3.292128 l .8 2021-06-14 2021-06-14 Orders Muse, 1.2.840.1 [id number] 759389 9116 Methodi 00:00:00 00:00:00 Only Ion Hicks 72645.1.[address] 3.430.2.7 Hospit a .3.197067 l .8 2021-06-13 2021-06-13 Pre-Admiss Muse, 1.2.840.1 [id number] 672 [id number] Methodi 10:00:00 11:00:00 ion Ion Hicks 57088.1.[address] Testing 3.430.2.7 Hospit a .3.166575 l .8 2021-06-13 2021-06-13 Travel 1.2.840.1 1.2.805.458 8307 256632 Methodi 00:00:00 00:00:[address] 3.430.2.7 0.2.7.3.698 Ho spita .3.157586 084.8 l .8 2021-06-09 2021-06-09 Travel 1.2.840.1 1.2.424.559 6753 860954 Methodi 00:00:00 00:00:[address] 3.430.2.7 0.2.7.3.698 Ho spita .3.084031 084.8 l .8 2021-06-07 2021-06-07 Transcribe [place], 1.2.840.1 [id number] 498 [id number] Methodi 00:00:00 00:00:00 Orders Ion Hicks 51166.1.[address] 3.430.2.7 Hospit a .3.471673 l .8 2021-05-31 2021-05-31 [facility] 1.2.840.1 [id number] [id number] 4603 Methodi 10:30:00 10:49:21 Visit Ion Hicks 29577.1.[address] 3.430.2.7 Hospit a .3.160727 l .8 2021-05-31 2021-05-31 Travel 1.2.840.1 1.2.691.836 7148 799530 Methodi 00:00:00 00:00:[address] 3.430.2.7 0.2.7.3.698 Ho spita .3.838460 084.8 l .8 2021-05-26 2021-05-26 Travel 1.2.840.1 1.2.103.246 0418 805952 Methodi 00:00:00 00:00:[address] 3.430.2.7 0.2.7.3.698 Ho spita .3.914928 084.8 l .8 2021-05-26 2021-05-26 Telephone [place] 1.2.840.1 [id number] Methodi 00:00:00 00:00:[address] 3.430.2.7 Hospit a .3.525187 l .8 2021-05-16 2021-05-16 [facility] 1.2.840.1 [id number] 96947 68553 Methodi 09:13:46 23:59:00 Encounter Ion Hicks 81259.1.[address] 3.430.2.7 Hospit a .3.291184 l .8 2021-05-16 2021-05-16 [facility], 1.2.840.1 [id number] 65989 28739 Methodi 08:39:34 09:12:00 Encounter Ion Hicks 64260.1.[address] 3.430.2.7 Hospit a .3.796433 l .8 2021-05-16 2021-05-16 Travel 1.2.840.1 1.2.786.002 8467 729165 Methodi 00:00:00 00:00:[address] 3.430.2.7 0.2.7.3.698 Ho spita .3.078349 084.8 l .8 2021-04-14 2021-04-14 Outpatient [facility] [id number] 559 [place] 00:00:00 00:00:00 ION [address] 2021-04-14 2021-04-14 Outpatient [facility] [id number] 156 [place] 00:00:00 00:00:00 ION [address] Results Test Description Test Time Test Comments Results Result Comments Source Tissue Exam 2022-04-20 12:46:55 Test Item Value Reference Range Interpretation Comme nts Case Report (test code = 104) Surgical Pathology Report Case: [id number] Authorizing Provider: Quintin Jacques MD Collected: 04/16/2022 09:14 AM Ordering Location: [facility] Received: 04/16/2022 09:23 AM PERIOPERATIVE SERVICES Pathologist: Renetta Miranda MD Specimen: Plaque, RIGHT CAROTID ARTERY PLAQUE DIAGNOSIS (test code = 3220) u0vmsUPaFRPkm0qlHFEilUThPcBdZpGaGfIlZj pc dWMxIHtccnRmMVxlcGljOTYwMlxhbnNpXHNwbHRw M3OzooucKQdcXC2nRC4ntNobkJFehDAkFDKsQsIp g8alv668gHIji4faWBCHmygmgEs6qLsuI60bo8M3 EsoiQ91rpYLbHKY7YKPtPSSyyLWfOVUyJFX8ETAk zZBzK8plFOLeFC0zbdwxBIudJUmoNLUbxAK9EVDz lXJuW8NiEEVkKRfsTAKikcn7SvGbEs8ndRMvoObv MFxwYXJkXHBsYWluXGJcZnMyMCBBLiBBcnRlcnks DJDgY4g2PXVxmi87zCBxQIDcBZXdpSMiKKP7t269 WckuPXNvRUPoWL2lKHRnQ3YxNQRiESD5MQT6UZka iKhjG9UkD6lkwHRyXIJ6xCUad82ztR43uwFnuIUr dWMeELUiUJXol5WcJ5gglRIhWS8ewogkGRYxtPKe v9KbxgEhiBHguTmsdkKzKPdhs1OtQYxkWZQqOR2e xPxgLLBpFH5nZNYsS3vzfM2edhs8OcThHHOsZjG4 CLInoxY8Yzy9IYSeUReot0wtb8VzVRRnHRo5qCow CkFgQVXpd7cdlpHnHjRiTFLfZYZgVOHbhMRqG481 l2pmo0gufuJglTY9ECUkZMK8FEmehfLgtbI0DJka jCCnYlO1MYdkltIgDQvjgxKjtjWsUui3ZPEhK383 JGG2oBmli5mrZGR6EXQdJATpHdIxAj7ryZWkF512 IUIoGKYZQYMobMs2GGGyxtCqupXzdCITi969E902 g0esQNWtbsPkxUcHodeuo6gdW131MYQnlGPpiqLw RmRuTYDusJSysCM1BJCpTH9wzyxcBOksBRklBCGq txX6MFJibJPcU0TfKCKxBR7dyievMQN4MGeoIFUo EZP2QdOrBCGsf8Plrzz8OcPnjz1qcw47DJL3u9Jq kFayRTG1TDS6YuUfZg2yeEJlOZDqXY0oArJmlHIf SLOyjy82dCpkSYilKLJ3VBSmseSrq1Tmm7vwUuWp kuZuW2rwP6DgSTWnWAYlGYBnUpPjawTjj6Tsp8Yl dDZnpIl8n2txTCZgDCGcgMjjh3vyIIF5LDKomDTn P2jyeH6tSCVfLA4ajwmht5suNHqvNDeoFGKvcCY7 ihU2HCXhrNYlK1OiyV4dUFGcFFmhXZSuedz8JlVb Vl5ttRIjrWrlTFcsQqaaQPwgVVXavnLmyyLizSxu ZGVjXHBsYWluXHBsYWluXGYwXGZzMjRccWxcbGFu QdCiXkKiiZtlsWlnMQkcZdDySEHpQVlvG3maOyWb JpYqBok0IBMfcJDlZSZjYtb8TLIehRSvKPMBbIfz lE5jRWNklOpcpU7dbGT6ZBXbrrYstZIQqH0aKKSV fS2aPpR1DXGcTgy6GDA6MzQybHKioZ3= CPT Code(s) (test code = 3357) j6ldsENhEVPrzBH9NcMzUZWgp6eek4EzmRTh cGFy SHldxWUmfbSlke94jCP8pD76MF8bBVSwRmT3ZEZk niH3Uue2ZBQuEMDbtJEbJ086j0mmp7dexiBdwOB1 cLgsZTVpninaKvE5DUxyPIVukeyhDMw6OSgtUMOw gGC5KUJxsTJuR5LiVCAgPB6vcsh5KCL9EVnxKVJw GvP6GNBgpGCcWAJyyVkuLLvrw021UOK8OxKeLHEg suXieGzvyM0cEhTiHVI3SOXuHEuhPJNyBBfsLBPk XHBhcn0= CLINICAL HISTORY (test code = 3356) t1txwBDrNLCrdLW1CfYtBHSif5lrt8E sdHBncGFy ZVaggSShduHluz35aHF2kJ83PE5zENTtMaU1BRLe bjQ4Iql5ZYSgXXWipIXyB245y8omd0pcvrPukRP5 bQixJIEyarcsHqB7QTkvIKYbvuwwFRp3WDjlRWXu fIY7GXQemSCpF3VoDKEuZE8jndj0OKM8VYniYGPv CjQ1CCRmcIPoUFZjjRkjUTekk282CUI7ApSdAKCq beGefKcxzU0tBqNaOYIREWRixUvpAIH5SR9ri8nz LCByaWdodFxwYXJ9 GROSS DESCRIPTION (test code = x3stkYEgXMFykZR1QwPwJAXbd7skg0FjcHBq cGFy [id number]) VWkciMTrxtRjdz19iLA2mJ02CY1iKZKvCbN0UECw riG5Ald4RPNgHBAgjIJsJ669d9gjp9rinxMcmKO2 YJCqOTCkV2UkQA4nPEZsoTGzE81hrTTlEXX0FSKc MDDjhYBfQNHgCIG7ZBWjwKYqZ4pvGOHzOY3hfnie JNukUZysTAIayQQ6PLFpyASiT8WrKDEhSYtmQIZn nja6DdYwGh3chNAofSxzUUzyYYLik4vgVZQwpPSr SOG8UCvndIAfHILlEQNbZGc1SKRmAYhmxZAdOY8a gFniMxbypKtot9AvyPWnUMqcBFSjXMNbEAhjIZEu N1WIEWExIFddWtR2GSWzNOz8WXmxK6WIGJPiSACp LJN6NQn6YtF6STh1YQYDEj4nKyR9JmT0DxC2CZP6 TNG8KVlbuUSuKBosKbeiMKhuBGVdsUWyOCcsseS4 VDBhFDusZOVrJvRlGX8uENszcPFfFwslADNvYjBh JGtkArFvPoDpKXj5ZZAfHuRgv0yncGNrERnbAAZ1 eICcWILbHAVnRFOgFZ85BHsoRVAygiGuJPplRLOK TLRiYTBhcXmidKYgKmAtkkZjWFKdRKZay8PbjQhy gQ9kfUVbXBH7eTA5mUJxTYWyhvEke20eb2HmfXGz pS01XHVtZOUvdKKggYXhnUDar7JolC7nHIHdPXH1 COIiMoZ8FGDkXPQqlL2jPPwjPSGhZUMhdOIlIBlk YULufgmyyNd2USHlV9Dey51lRCN5gtSdYFYoISgn X9EuN9qnkEIwyRxigyBqmQDkl2OroJ3rDXXoJIJr EUZpCxRzpHUninL8gNhew49pp4ZgBN9DPEKgNTFs diIalIr1ADGoJKT4lS2taeHaxlHfq2DteUi9hSEf TIvbLCSvXTMqo8zms6qrewixJZOwQHdvaHCvR5W8 hF5kMhhiPWHhuKJdNGPvOqZeQ9AzWCHxtCMeCMQj I3QmtFijkbmkZOQfBEfOINiLK6JWARojETNhM2Pl S6BmhoK2q3eekRcjr8EkhMUqXR3edUTygO== MICROSCOPIC DESCRIPTION (test code = u2ufvPUyWZMzzWL9AbMuCWAxh1nlh7 BsdHBncGFy 3371) CEfjjWPltgGkuj34pYG1wA93NB3vHQDqFwK8IEWv ofB9Qbp1WNWxQXNmgSNgN199s2eqx1hakcGwySE7 jGaaJHPlmrmqLaG0PAvjLYFyynqfVWq9UImbZVKt bEH1CLFgtDLkO2HyIGGfTV0uizg1NZO5AEinKPJi WmP8KTPfmLGsTVKjvBlcUIfwh966VBF9NbRwCWWr jgLerAfusO2dHoFdZJNFeHKop5Kif2PpCfHafYYi pY1voLfddmLedtAvUNEgk9IrCOOpNY6fNISaOUQs JHeeGJ45BTIhfeRvgnynNGJhAPAyhpPsztTzmyQ7 UWJfjH00tiD4zEStPjjbEGebJNwcP03io2zxOEKz XHWie06aVE65DIJbG0Kkw90vFnGvwHLfzB== Gross assessment was performed at (test [facility] enter, code = 2777) Department of Pathology, [address] [place] [address], Technical component was performed at [facility] er, (test code = 2778) Department of Pathology, [address] [place] [id number], Professional component was performed at [facility] enter, (test code = 2779) Department of Pathology, [address] [place] [address], [facility] [id number] 12:46:55 Test Item Value Reference Range Interpretation Comments Case Report (test code Surgical Pathology = 104) Report Case: [id number] Authorizing Provider: Quintin Jacques MD Collected: 04/16/2022 09:14 AM Ordering Location: [facility] Received: 04/16/2022 09:23 AM PERIOPERATIVE SERVICES Pathologist: Renetta Miranda MD Specimen: Plaque, RIGHT CAROTID ARTERY PLAQUE DIAGNOSIS (test code = [id number] 3220) uZzEwMzNcZnRuYmpcdWMxIH tccnRmMVxlcGljOTYwMlxhb mXoHARkgVYyR4JvvcbfNXcv HV9qBE7flLczgQIegQOwATT qBtZem1uyo988bHMbh1ppYW TMiigupRz9rTruU07bk4E3U iwwX57dkSDoKTI4KTCgDDUn sTIeXIIdSUH3DMFopITsA8q xNUApDR6ejrfyTLhbREacWB PxuBC0MCAchXEnI4JaUQZeX RuqWPQakix1ZxYgPc0gaFOq eTcyMFxwYXJkXHBsYWluXGJ cZnMyMCBBLiBBcnRlcnksIH BeH6v8RWHakc22dIBrOBAtZ WObdZVjSNK6m720AuhvXHBx NHJpXP6dGCKuQ3KaMDOzSUY 1NWW0FZvfsEewF3AuA3fsoY GfTCZ2dFYuc81wiJ01yaXwa PTvsGWxJWUhOXEzj0CxZ8ss dEGcBL5gfemqJQWzmSYjx3W pcyBccGFyfXtccnRmMVxzc3 OfTVchSRZkHK4dsOquOXAhB Y3vJFUhA4ewnZ5xgor9BeHd SMUxDyP7EMQthyR0Oft9KHE sJGbja5cac7VjNRVjRYk2yH evDsIfMORhj0qxqnWlSwDjD ITdPCGmRIBuoONmK892m9bf b8tqroGquAN3GZYrDSR1SNw onjTuchW2BPqxhVMnXmX8IS ntciJcHKpkscQaluXaZkv8E GZiL929EIQ2jGsle5ebAFR8 HLMpIOLkZhElDm3xmTEyH90 1TYUjXKCSLLAybUs4HOSpng WrdsNwtOSDe718C468u5toB EYklyIekDcSpwhiv9moA409 XHBhcGVydzEyMjQwXHBhcGV ciSV0IUQdIP5jtikiNLtzDA gvMCFjjuW1DJLyyMWvO9JvX DJkAB4ayacaBUS2WKpwNUNk FSG6QvXlMJStx7Ucaqd9DyW sxr7bld73GFE1w0XdhUijPB G7OTO4OwKuVm3sgWAyZVRjB A0uRlOrhRVrUVCpij14qNny BVpoJQU2XVWtcqGyz1Ore0k wIfBlyuOnZ8ajT3PkAJGhWF XaEPUgPpHtmeYxp6Szb1Mfa BKwwCz4z3kzQUNoHEAnoBjw y5rqHWW8XAOmoYZkR3kyoF5 iZHUjMD4bkeksd9peNUrsGY ayBVIzvHF6spS8HMFumDWqK 1CtgY8yKMZtHKzdSCOcwdl1 UiPsEs9tgNLoiHkxULtuOsx wYWdlXHBnbmNvbnRccGduZG VjXHBsYWluXHBsYWluXGYwX GZzMjRccWxcbGFuZzEwMzNc aGljaFxmMVxkYmNoXGYxXGx nD5tjUbWbPyGrJil2NFRdnL OgVSDpDqv4PNKihAZeVWEGt MrqqO4vOADdtXshnB0ccOQ9 QMGorpNvaJHGpP5xIDWEhX8 sQfD5EMThGcp6QHN0FhFnhH FyfX0= CPT Code(s) (test code n5gggBPzOSGtzXB5IjMrRDD = 3357) rs2uxb6VzxVDznOUbXJqnyL SxvvGhqr84zEE2oC42NM7hQ GCbArB6YLUposA2Iya0KSQf QSZidUSqJ473v8qvx9xsjdX kxJT2uAhbRCSgstllVxF7HY tuZTIqvnniFUf8OIfdNWRfz TQ6CJWypRTgN3HzSVAiRB8a ilx7ZHD7CFzsLNQeDxW5RRL diBFbWLQuhDuiUWfia019DK L9BeIkYXScblMkqLixlN1lC kAoOAD6QUYnHAwmRZWlLJma MTEgXHBhcn0= CLINICAL HISTORY (test a1xbiTTjGHMdjOT6AjLiHNP code = 3356) mo4ksq8YawANbwBNnPRdgjP NghxRmyy71yMQ5lC11PJ4wH OYxAvO7XHYkmgB7Vtj8TBEm IZVyfZGvV641q9kxn1zppiK ggGU7lZquWWNuxfzvHxW6KE hgBPRpfliyWVm4MApdQPZvb DJ6DMMulQZmM9GsPGJrSM7t kdn5OTN1AXxcHTRuEcJ2YNW kpEFoNJIkoGboNTbik148JG U2MzDdXLSobxCssEhdhR6lX oQxHRDNVRBwuLbuGRH7VG0j r7jpZJBfhXploTjuNVA4 GROSS DESCRIPTION g8yptFZlVIZtzJD2ZaDyICL (test code = lv7wsf8XteYOamLBsQPlitT [id number]) VphdDsto55hDC6zP81CV0tP CNfMxS0ISCiyrY4Mrb3HFNs KKWusLUpL879u1zum6jpvlU hcMT6XUWtUCSzE9CpZI7iZE XrsBIkD92urDOwWQO6KVLzV RWptOCfBVCpDIB1PCIybJSh Z2niKYUjSZ9vrzuuIEslMFs aGRJeyNY7WUSctDIeQ2BrSH ObEUfbJIHfwor2NoDoXa8ec GVmaSkmCIgkWZBmk3gpUXNv xPLsYHS7GPoneKUmQRMzJIW kKTm1GHDoLIvvmBHkHZ7pdE wxMvvrnEefe2AarOHgLHnpK NVlZHJfHWcxZLJvF8BDKDCg RNkvFwG9OYAuUXk9DOsiI8Y AHQMzXSBaEGG1UTj9ZlI0BY t8TWDJGw6eNzK7BzE8AvJ3E GI0VHS6BVneuJUpSRoiSmps DJssYDGhgINrNYqdksE9TSZ eSIlyUWOwOnBhUL0xJMwdvG VlLlxwYXJcZnMyMFxjZjEgU yStYHu0MLZqTqAtn8rpuXHn NOglJJA9kUKtMKAgXHQvZWW oAD92LVfxJZZwibDyUZkfLA JOIGFuZCAicGxhcXVlIiBpc fLtVOKjWHYqi5YuaWfbxY3v uKIrVEF0fNR0jEEfSLMcnnL aj15cq0UwePRdsZ15TSAqTW HmiOPecZRgpMFda9UkkJ5jC ACjJVY2QELbMeA9WQWbAHLp gD4sQNdbDSXoXBJalDNsKCa tFILhnmtinAs4ELNxF5Yik8 0jWJX5hhIvZYVqXXapW2HhX 9fbdAYekJuwgkUbeBUdo6Ku vO5gBHDrCHXpRXOkUuIgzSF aizS0gWjxi39qt8EhPK7EHP YtCXMekzCakNe2CEOeQLD6f C4gnvUinlRid2EcoUm5gGKc KGymELWqIHLbd7vni9zdhyl wSZFbDQcdnMRyJ8V9iY8xSb wwUVFrsNZeFWUcLaBlY5HqR NTrnUXrFERzJ1DskNfapuon WGVfFWvTSKaOG4MZFGmdWFP cS6QzC9KagvV5b6lkqAkbz0 MpoUNkWY2yuQPywN== MICROSCOPIC d8szcSZiAWQznTK8YfOhUOX DESCRIPTION (test code yn0kxr7NciNKuwWGsWCujvB = 3371) CyccGbcu39xFJ3eT51CU5cK JCbJlL7XLHjbzK8Ssm3YIPh EBLumWOqA099s3bpl1qoabU gjLS9tKktJSSsihtrReJ5II gaWWRukqiwLDs2BRdmKJQyw JA5TNAhsOBdD7NmDRFrEI3d cgq1WQL4PUgcBLMvGtZ0ENO ugODzORDeuBuyAZkrp658BN U4WrEsKIZpfnBdvYcdmR3nT sCtOJUWuPCne6Lqe4XnUkVw vGMxoE9ebUydknAnovSuUZC nv0EsMMXqJP1lLAEoNSDaEL epUF68RMDufjIndmmdADCaU OEwquHveiItydU2NMWmyH05 lmT8yDIkMbmoMVcbORwtY98 po8wtAEBlERSxr05rJB67NL UgE2Yyp53fQvZxcOGjvA== Gross assessment was [facility] performed at ([facility], code = 2777) Department of Pathology, [address] [place] [address], Technical component [facility] was performed at ([facility], code = 2778) Department of Pathology, [address] [place] [address], Professional component [facility] was performed at ([facility], code = 2779) Department of Pathology, [address] [place] [address], [facility] [id number] 12:46:55 Test Item Value Reference Range Interpretation Comments Case Report (test code Surgical Pathology = 104) Report Case: [id number] Authorizing Provider: Quintin Jacques MD Collected: 04/16/2022 09:14 AM Ordering Location: [facility] Received: 04/16/2022 09:23 AM PERIOPERATIVE SERVICES Pathologist: Renetta Miranda MD Specimen: Plaque, RIGHT CAROTID ARTERY PLAQUE DIAGNOSIS (test code = [id number] 3220) uZzEwMzNcZnRuYmpcdWMxIH tccnRmMVxlcGljOTYwMlxhb vBiCEMhvINaA2JtebcqZQub UC7nMU9zfQlkuSEwjIWwITW xNaBmn2qin526iOLhy0rdWH KVskykfDd1iXivG04ym7E9Y illU98gaZOdAYZ7CDNfZUVu jCUtFFFoGYL2YPEokPGqE9g yUTIqIP3mxlqkBKjfDKfqMH YexEP3ZATccRIyY8QcJFUjK WeaTYAedod2YiVgRp0mlUBz eTcyMFxwYXJkXHBsYWluXGJ cZnMyMCBBLiBBcnRlcnksIH IkH0p1GUAjof14bWNbGULqL YTkgJXcFRF9w330SkhqKTRe DKMuJW5aJPXfE3XwQZCyYAY 0CSA2HLmykOfeG9KuB6cyfN GiVBL2mYIoj20jwS99wkOcs CBrlQBtMDOpPVQse2QcM2gd oRSbHA6nygbxPIEudPYtu0H pcyBccGFyfXtccnRmMVxzc3 ZaISvhOPJjXM3lnZctBTJhL T0iSVFaM3rmdR1mosa6JiQg MPLyTcI2GHEqkaU4Tgx2BCJ fWJzge9zfw4AeUKLsIPn6xZ edPzMmHCVmc5uxhaSzHjEuU MGaTCJwOJZcsXOlC953m1eu t9fnacRqrPR6MPMvSFT5FWr dprMpcuY1YIezoUBuDmC2QY mgpeCeLHmmppVbblOtDry2A YOnQ355SEJ9oWugx5vuXXJ4 GLOoMFYtRlIlUl1qjIZqU17 7YYQpEJQUKOMxpUp0UPXsem ZrqjWdtHVYe308T661u4ujJ JEbksRcnCqZyjpoz0bvI074 XHBhcGVydzEyMjQwXHBhcGV cfUH2IDBfKT1kpqfkMChdWS bnBPEpzuK9WWPzdXZpO2XbD LOfKE7wzegdYIM2INtvMTZa QHZ0FpPkSHUyg5Cczyp4MtX llx2pip19KLI0i3EafGagJV I2LEO6WeKjFg3btDDnIUYyM U2nGmDvpWKkTJGbbu47xWwj ESnxSML6AMIsqxWnf5Dlt4n fTdKissWoW3hrB8MbVVCbCE QiRNHeQqQafbXit1Dib4Lby HOnxAn4c8ogPMEeYYNorIxc a2fvOST1NUOvbIVvY1pfiJ5 qHTYyXG1sbrswb8hxNPfsQX mrERNwjRP7reG5IERisRSiB 5BlgH7kXTIjQEodHQZixwu8 ObRpRn8roNZaiLgeDDsdAop wYWdlXHBnbmNvbnRccGduZG VjXHBsYWluXHBsYWluXGYwX GZzMjRccWxcbGFuZzEwMzNc aGljaFxmMVxkYmNoXGYxXGx hG9yoHnQyXpGwPpt8AIZsxN GlROWtFuj9UROvfYXwMMUNy SfttS6vCLOzgKlvfX1zaGO5 XIGugzUqzBUNhF6wBRBVoZ1 xFwY9QMNyFdr4NQE5YrBpqT FyfX0= CPT Code(s) (test code m2lyrADmPZWrvHH2TnJfEEQ = 3357) ib5mjp0UniZKwwLZzYAwooB AmftRwss21vUC3hJ86AF9eB IMhDfZ6DCAfabT2Zva8GMVr VLNjgVHeR456b3gxj6yardG nnGQ3dUimYDNghkatByW6PC nuLWMhpsdzNPl7VFjiTSVdf MM2AKXqvMJzJ6CjDLTyLQ2o ezj1QOV5MYjdHKFsMrV6KXX ybSFpIYNhuIyfOSzga116YS S1RnHrFUYotoXpwPtovS4fL eJaQJP9BODtHMwnDIDcBSgy MTEgXHBhcn0= CLINICAL HISTORY (test y8flyCVsBNDrvYP4YpDtDUH code = 3356) nr2cjd6RzcYAjvGDeCKhnlU WhhdFuue29hVH1wW29DC3rV NXeUnN9PYLqqoT2Zpx0BTXn KMXppOQxI750m5ybw5sfvgE wvQW4eQqjZJCikyngHsH3YS feDEVpeymmXTt4OAyuMBIka WF6FGZatGLiY9AiPUYlIH8w pfd4QSV6YPhkDKKrShA8WKP dvHOdVBVszJimDFgyp000IP U9YdKtEKUsaiWotYvayF2iA nQrSFQWGARhfFhoWJA9LA7c l7ebEZCxrIefeLmaUAQ0 GROSS DESCRIPTION t6adcFQrBWRqmXD3KmGzBYU (test code = xo9hfi9KreHGsqVXdZEplvG [id number]) PiyuUnwy30bMI4uI56PG9mU UYxUhG6RUVicbW3Itd5LDXk MLSbvVVxY585p4zqa3zonzB gbSI7ATChHVJaF3PiFS7mSB ImcYRgC80eiIXkOGY3ZBByM AZrgYQqQGOsRBQ0FHGhgPXy H4zvORDcQE4zmsjyWKntFMn hVLHbfLK0BZPlxZRsI2BxVI YiMZhfROPrabo6ShDeWv6ni LHfxHckVXqrTNMnt5gzPXEt uNNbVMA0WXnjuNQjQIDrSYJ yQEl9ZYPyLMdcfVGpXT3piL jlSuuatClet7OttSBbFWwiN VFeCFYhQZujJHRmK5UMPEFy SJfbPqO7WNXrDIx2QDvaS3F IAIJjOAUnLYA2ULo5TjD0BB j4RJEUEs0vKjK6ZxG3ShK8F BN2BKA2RNcpwFCnBBfgNcuk NMzrTIUsjTIaWDsdalL6ASF pLFwrPMRqHkRvWP6nWCskmK VlLlxwYXJcZnMyMFxjZjEgU qEnVMt0TQLuRzLta1gwdTNj TGhjTVE1kOHzXTVcYMNnNGT dJP70BFbjJHBxevNlQFvvWD JOIGFuZCAicGxhcXVlIiBpc eFvWMVrCIEbg8NwtCzsyV5k uJEkZAR4sVM9yMXgRKLfpqD ej42fd9AwcOEgpF35PJRwUK QrxJVjqZTxwDHdy0JhdA0eZ QQdVHC8QKUgNsU6LWIiSEUm uY6uEZwfENAuXXVngKMsCPg fGLFydkprlWi5YRBoX2Gtj7 2hXBT2uaVrPSDaJWxwB3ScC 9takSHpsEglcjYmySCum2Ri yB0nYMNxMEFvDNAnApNfeSL zsxX9dUrzn32ma8YqPE8BOQ CzUIXhzbOauQb1MMCiQQG1r S5nfvGznjMin0LboQo3nKFn XZrzDFZvVGBin4uhj5zafub yRIYtZBjgdHJjX1S6uS0lNa esASIlcEAkFFNrPcOuD0VwW BObrYGhXKIuH8LikIpfkwtt TETdSRgCUCmBO9HWEXsxRNA gC3BaE2WnitA0h5zgnBruf4 LrdHDxYL3wvNRwpZ== MICROSCOPIC g5lyiCXeWNHerQP1BhFsXWZ DESCRIPTION (test code ck3zkk6KibIXypJNcCHikoW = 3371) NtupLgff28jPU8mO37SV3xZ NAyOwO5GJWkevV9Btj1CMVp OXRspVQgJ462r8mfi2pgnuC jlKB3hHuqYTElliwzXdY5BY xpCGGbtlsqGSd6KUrxBKJvt TX9HMPdxTPuG5OyXCQpWO1p zwb6CQS5EYqpDSGoQwX3JHS wcABmXPMlnLdsIUlxx986WV G5DvWgOXXrayZzbJzspX2bA zIwMEPCdZMvr1Usi6JhVaYd dZYbhE6yiWnlgiYmirGjHHQ gb8GtXLVrOR9kZSVpDZBxOD tdYQ75BBDiddZitxkwKBAuE KOoskIvrqErvgH4UCVabM96 gqZ6hKZeGnkuESeaFKioM26 dp7sjNITuOFDdf43fXT30TT OcG4Dtl54xEyAvqUWlvP== Gross assessment was [facility] performed at ([facility], code = 2777) Department of Pathology, [address] [place] [phone], Technical component [facility] was performed at ([facility], code = 2778) Department of Pathology, [address] [place] [phone], Professional component [facility] was performed at ([facility], code = 2779) Department of Pathology, [address] [place] [id number], [facility] [id number] 12:46:55 Test Item Value Reference Range Interpretation Comments Case Report (test code Surgical Pathology = 104) Report Case: [id number] Authorizing Provider: Quintin Jacques MD Collected: 04/16/2022 09:14 AM Ordering Location: [facility] Received: 04/16/2022 09:23 AM PERIOPERATIVE SERVICES Pathologist: Renetta Miranda MD Specimen: Plaque, RIGHT CAROTID ARTERY PLAQUE DIAGNOSIS (test code = [id number] 3220) uZzEwMzNcZnRuYmpcdWMxIH tccnRmMVxlcGljOTYwMlxhb fOyPTZwwBPoZ1XirrobQKlf NA7eUU0pzAldbKIznJCfQBG lHfKff8nng343gIYkx9upAR VVzqfugYw4pSztN30dc1K0K wjqH27ayZQhMUJ5PGThWFJp sKHzTEQdTXU4MIEjaVRmK3p jPYCdJE2yzmpuISnrNXknLS PadTE3IMOlyKZvR0DkJPUbH ZivCMFcsxb8EjBdJl7beSOx eTcyMFxwYXJkXHBsYWluXGJ cZnMyMCBBLiBBcnRlcnksIH JgH8w9QNModw80rQPoRSPeA MPedNKxOSP2g563RxyfGYCz PACxHY7aFICdD8ZpKMZoBQK 5JBH0VTkogLnrY8YjL1wwyW ZnRYR8dIWjg06oaE77wuCin KFhlEMfVETtJZRhg7ZbD8mg qJDkGE1aqwgcZQYdnCIxe1G pcyBccGFyfXtccnRmMVxzc3 NbCHkkGLRyIA6kiZdmNGYjR G6xBTRcR5ehaZ7yrqk9KwLq NBUaMpJ7UBBbkzG4Cjw6UFM fBQkjs0heu0EfRBJmTWr3jQ xdYsFtSLIjt7dlwoZmRbJxG KQvQEOjTOZefWIvL499s5mi k8fcljGduUL9DOWmCKA4ODn ftiRcxaR8OGyblHKoPeM0EC mpqiEdHKpjpwOdkhWiHvl7L KVoT554JED0iEzjq1tuDFC0 PGPbPUTxZqZoXs0wvJNfD60 7HCKlBYUYEBLjcRn0WYBqac ZyduMrxKPWz863J404r9mnF GXgytNrvHpLgwcfy4zdY000 XHBhcGVydzEyMjQwXHBhcGV wnRX4SXXqNN1foojaDCgvPP dcFECzukS7KILxdZVvL4XcL CCmXT5ewwhdWBB3OFxeYUYs HKA5MzUuMGEaw9Tibes2ToD nqz0hca25AEI1n4TxmMmqVU W9XLZ2VcDrLc0obACvAWGbW U9lZwNoeBMrLMDczn14tIbq SXcvCWN8XZNgeqGgo0Zuk4e lAqWgomMwD5iiO3BqEEPjYY CdNZMnHbEutbZoq8Mlq5Fap YMepSe9y5wbWAMvUIQofJzm i6tnTJJ1TZKtnHImM5aijZ9 zDBKmXZ8xalhjg4hzQSugVC czTAQmmYM7ceG6WLNzjYGkA 8GgrG1aSHEeNNkkOTMuifw7 BpPjQq4smFYddVrpTOvmFmz wYWdlXHBnbmNvbnRccGduZG VjXHBsYWluXHBsYWluXGYwX GZzMjRccWxcbGFuZzEwMzNc aGljaFxmMVxkYmNoXGYxXGx jO0eiRqTfTaBdFqw7PRWgwR YpNOTnAtw1QCQroBPrMZDSl WzgqU4xEBXqdWqpoQ9mfJP9 KVCbnxRvrAURgV7lQJJIfP5 sSrA5HITnNqq2IGJ0NhDpmR FyfX0= CPT Code(s) (test code q0hqvTVpEUGksOT4BpUtTJN = 3357) vh8ury8GbgSPmuQWyYZfsrT GglfMkuv55fOS5dB18VR0gJ WTbNmA5YLZubpI3Uqv1DIWu JFCbvKRpL371r0dsn6junmM pqBD1mWzoKQVcglxbQjK1SB vfJHTiaqzcYKz1IXgvTOVdd CC3YPAxoVMpO0AfJLTuRY1h ior1PEB0ETlcBKUmBlJ5EHX aaMUzPZVhtYjfMPanc721LV N8FmLwNZEazkTlbWgamY5zL bPkWKG0UFOiNXolGTZaTEqh MTEgXHBhcn0= CLINICAL HISTORY (test z0rvmRJzAJVqtBI6YeDeYIE code = 3356) di6wwj1KbmOFvlGEbNHbomG LtmlFeyp52vGZ3rB10PX5rW MOoNgE1UZCtscV1Jxj9PQKj QDArpSRnV633b4tty8avprO arDJ3vBdeNWYlkdpiUpN5OK ktEOJpdfvbRBe7UDenFIZuv TK5PTOgdUZhL3PtMJSxGN8g run5KBH8ZDxcDDXoIdO9LJZ hqNVjDWKrlCzkHIntr350PJ H0YcRlLYAnnoKdlNfhaH8rQ hPrXOWUMLIvjYeiMXS0KI2c f3gzVFIjaQbrlIjeFIN1 GROSS DESCRIPTION e1iscUVwSKNqxLV0WlDkVDM (test code = oq0zfy6EjjROiiHJmUYrpjC [id number]) LdamDiyc95dOQ1nW61IC6cW ADgMyZ6YKRmplA6Juf7JNJv VYFquBIlW067f9diy5lgklW sxCC4QWDkYIUdO3AoRF6nPG BvqQWqR16tfKGpFPH6WXUpN LMbfBKvMUKbWEK7GYYucQYd Y8dqOQScMS2pmixtWRaiBJp uCSJmtJZ1WODfcVNhW0HuXG RvBVrnQJNadpb9IvDdMu7wq DLihAzqOAooBTHhb5laOGZj pPByKLK7GBpfaSIgDRPdOWZ gOPz6ZDCbYVmulPAmCK5kmT bqLyvjoNoyw2MewSBrGMphX KSlABJbQXkuJKOqB4QGTPFp ZAbqMrZ7XKGtNWp9JFnvS0N ZJAReMRMbDDG5CXh0FlW6CT e0DURQYg5yAdH4NlI3DhA2L JJ1WZM2GShboGLmFZsiAgze TDqaSVAcrXZcYYctswW8EOW bBTvtIVDiYmFkDY4sXHdxgK VlLlxwYXJcZnMyMFxjZjEgU gIbVNx3FHQtKhQsr3oxrNVh GPsxQTS3fCIsIUOjPJWnDZV mDB48PUfxPIXkkbZpDLcqLW JOIGFuZCAicGxhcXVlIiBpc wAmZKYcMYKeg2AbhYgkaI1k tMQqCDL4aXG0wUGvMVVntcX jp98ln0MlvESpzY32QINpCO PmsBVgmORbsGRmh8FjkN6yH JWbTIM0AMVmGjH4UFYdDUWn mI3zTJhwBQJnCZFjbALeGYj kRVUgxrglvDe0UCXpT5Qvq9 8dKDZ6dmAsBALkZEeaJ2BwP 6dqaYBybAnmznUsaGRan4Io dX3qSMPuNJYaMSQuOaPatPT nglJ5dIolx08ta5MnDK6CYX IpRZYvvaNmfYf6TOZrZGN8d J2gqrDsfsKte1PhxHx2pIIg MUuxTINaYNTlz7ypa7akonm kYLEbKSmcqMSuA1V0wG7tCf mpPMHavXKfOHAjSsGdK0CgY DPevZUcRHFpS7SvoSfwoihr HJXcAPgGJXeYH0LXZNzgTSZ iK2RhA6SjflR2a0wokVpwk6 VixJMyTX0pgIBaqJ== MICROSCOPIC c3kxsNVoYULnySU3VpAzHWJ DESCRIPTION (test code ij0apu1OltQFgjRXbXDccoO = 3371) MprcFerb08rIB8zF09WW3rK PJlDpI0TDMypaJ9Xsr3CYNs EEHlsXVmP065s6oah7abijE lsOJ9yUkxOTNdqjjxZyC2LB jnTGXacuzyATj5GGudQBQqs NT2NKJdfYLkD2PeCUHdKO3v xnb9LQZ1DSlhODUiSwE2HRF epXToVAGslHewGJfse910QW Z3NfNyERWzgnGcaVkeyO5sF zXkNHGOdNNty2Dds2XlRgAj nBKvyC8ocChflaRwjgGoFPA sa8QoVXKeMY6dEKVrWGRfTM jyXM16BMWgetFcnzgzAAWyE PBgipDcfvHktaP3FFMvfP00 miJ1hNTzFztpYRynELrkD58 uh0bwELEaYRYsv38rKO74AB IqX2Cln56nAfAxnFTmhN== Gross assessment was [facility] performed at ([facility], code = 2777) Department of Pathology, [address] [place] [phone], Technical component [facility] was performed at ([facility], code = 2778) Department of Pathology, [address] [place] [address], Professional component [facility] was performed at ([facility], code = 2779) Department of Pathology, [address] [facility], [place] [address], [facility] [id number] 12:46:55 Test Item Value Reference Range Interpretation Comments Case Report (test code Surgical Pathology = 104) Report Case: [id number] Authorizing Provider: Quintin Jacques MD Collected: 04/16/2022 09:14 AM Ordering Location: [facility] Received: 04/16/2022 09:23 AM PERIOPERATIVE SERVICES Pathologist: Renetta Miranda MD Specimen: Plaque, RIGHT CAROTID ARTERY PLAQUE DIAGNOSIS (test code = [id number] 3220) uZzEwMzNcZnRuYmpcdWMxIH tccnRmMVxlcGljOTYwMlxhb cXnSHQreZBvO8JdrbyfNNnw EQ3mHE8giFanhZWjbWQmICZ cEvMyo2ypc665bDCpa2xgEQ XUkdovvHu7nGwmW55xd4O0O jctJ89bbFIpCHF6UCOhDPPf tRDxUMZuGSL7YTFpqOApE0l cJLNfLH2xwduqHQuaEQpsTB YlxZB4CIHjzVRkN5CpMAXbC MdnDDZujti8UhPgEv3giTAu eTcyMFxwYXJkXHBsYWluXGJ cZnMyMCBBLiBBcnRlcnksIH IbB8b1PRMrjb61vCZkOXYqM RAetILtSTC3m705BtigEBRx WKXsZP8dISRbO9FtYHXwBPR 7QXA1CKsxiVshF9KlD7tkyX YtATY3iHFdd02voP61clFhl NBqnVHwEETcSZTaf6OmC0vz dNDvGG7yaiiuVQDayQOde5Z pcyBccGFyfXtccnRmMVxzc3 ZvWUmoVFGgFK9ecVmePPNrY U7ySKCuY6lzcP7lffk0KgFv FFWpKjL4NYHtwtR9Aam2WNH uZDeng2nfz2AdGOSiYIo7fU kzQrSaRKDyx6bwmeQsJhJoN VQxHTZcOGGfiHNhG048d7ol z1tmfpUkfUZ8JJOaRLU9PHf oxtBqlqN5QSyjpOHsOiY2IP jydgHiDKaogrQaxtTaZnq9W JPoW305MKN1gCdoi1ijFTD3 NAIoVQBzKdJfWr8lzVGjM74 8MYStMTXFNCAlgFv1IJSmrr DbiwVdgPVGh127C242l0dvG SPnzwSsqHxRzlubu0wlG447 XHBhcGVydzEyMjQwXHBhcGV rmPL4TWKqWT7wuniwLLcpFM qzNGPsfkX8XGDjbROtW6XyX VBvLW3vbsxcFSI0WWsoUBLy SLY3GcVfKSXpw5Knqni0MkW ujj5woa87FZE2e8YbrEroML H1WZR9VyMoCw1ddAJkTSNuD B6oDbQhwADzSHIqap71cPln GBlcSTT7TWHgmrGfp7Gfx1w lYeFaxhOyK9xkN9MxNNQhRG FfHEQcNjOshuGzf4Ugg9Xfg EHpcUo9h1exBHCkXHPcvWkm c2lnZQG5OXYggVHtB8qpgH7 aUHIgPH2rrvrem2xrBKouQX sgWYTcjSU4maD1EHJqpUKxT 0LgvK1cASZrJVnsYLDfkxz7 WaSvHg0qmUNvyKknYBluUav wYWdlXHBnbmNvbnRccGduZG VjXHBsYWluXHBsYWluXGYwX GZzMjRccWxcbGFuZzEwMzNc aGljaFxmMVxkYmNoXGYxXGx oJ0ovBlLpHeOqGft2HDSrkY VdKOEoSmb8VDRvcVJrFDAMt AhezI8hWLNtiUtkfU3nlPB5 SQDuflBnkQXMkZ8yTWFPwR9 rXdL8JUSnSuo4AJN7ObXkdS FyfX0= CPT Code(s) (test code e2yqkJGbEDMphYL6TmOzEQR = 3357) nz0agn2BzrHKseZMwJZwvwH HewlAkuo43eXR0yH67HN2eS EQxFzI3JDTfzjJ2Jqs3QMQl HZOgjJDhE760q9mha9ntrkL laHY1qTayLMAwzvjzXkA6YA bdKCByogxhTWf0WCrzXLMod AJ2LPNzwNQrB3VlWKSiNG0j ysj0JHA6JBmcSYXkCgU0KCW hwPZeQSVkrAsaMRxdn920XZ X0NpGwMNCohkNkpVqxqP0vK dGjGVB5OJWzDFxuXFIuCDpo MTEgXHBhcn0= CLINICAL HISTORY (test v4rvsJWgDJAxaQL3ZoPuKCG code = 3356) ll3eyr4WwtEXxbQDvOQhpgS BgtgYwkz37bRG5vT60RV4iB CYyMtV8THFaccW3Msu8FKDp RVOwhTInE304r5ikh7txdxE psIE1sLvpEDRrivdtDjJ4AX mfCGXlswgbTCj1XDtdRLAyl AD2LIZubCHsU3AsWQJbMP3w zfd7QSZ2TRjlYIQlBeV8XMB bvKKbMJFnhByzQFqhf800UT L9QfXyQFBjshOmtGhjsM5lM gDmLMVGTOGyaKshKII3SY8q n4ydJSAmyIpbpVygBHN8 GROSS DESCRIPTION o0rwqXUdSYKruQF4QwUqDAR (test code = sv5ftl2CyaZUegCQjOBaccI [id number]) OrdgZcbx49xAK8jA97ZT3oN ZUxOlH9CELiyzT0Xcq3ALYn KPAnuUYdE290x7xed6dhjgJ nyDY3CGItKCEeJ7EvFQ4rTA JodZToI10qhQSmRFE1MUNdB KMjwYFyBQRqYTJ8ZCXfwOKe J4bxYBXoHQ7ssbmvGFmjBWn qNYPhtJS8AXNchHXjQ5ObCH EgGFzqCYGgsay4CcJcNn0di TQstHwcPLnsNTTey6vrILYf pALwSTF1BYtttTQrFOQjMVJ bXPi9DMJzZNinrFLgUE3auT roYuuauKfov7NoyXKhYQszC DZwSWDrUAavBNUnG2FDVMMc JLwvKpO1CMYeBGc8BNcuY7P NEHIyBCFrIDG3WJb4HqL6HT q4OAXSBq2tYhE4HaO8TaC3O KQ4UWJ2RSpnhEWcXScbTeta NJvtCBBoyPWkXJmugyV1QQK oAXwfLTJiFbZqJF7qSNwlnP VlLlxwYXJcZnMyMFxjZjEgU aAbREw4IUGqTsLsp5sulWTz AAcfYMO2bVZtWGJwZIXxADY zHA96FZvxOXKzeaOdIZmtZQ JOIGFuZCAicGxhcXVlIiBpc iQkMJRzPUSgb1VbmGwxlN4m kLPuWSH4sCJ2dCHsHZUipxM cv64qm4TzkXYreU66MFMtIQ HxqKLjbIAkhCGsi6IawO5yP WMgZFC7ENHhLzY7EIPjADQl zT4sVYbfBIExRVTqyVCmVVp uRAVchwcvsZd7WLPnT4Xrr6 1bOJS9oqSnJTTsVYanB3MuF 6mknXPksBisopZhoVQfh5Hn wT8kNRVmERFzTTFqLkOwrWK iinI7sDjeo38re0WiUA3SAD RiGFDvzhUrvNq7ZNXwFOM6l K9kdtVgfqDjn3YxpEj4aMDu GIpeNRTjAGLko4zmr9nrmkr mMBNcPMokiIWqC0V0hI7pGv geDOVbgHAvYWPbAaMzH6PzM LXxzFTwLMHlN4LkmTbrxniy FNUwWEsAHSwEF1XYRJgeRAI zZ5OlU2IznjY1v2aefBrtq2 OzyBEeJR7stBBcdX== MICROSCOPIC i2axoVDpCRFvlLR7IlFmZGU DESCRIPTION (test code gb6ndn1FqoBWcpKBxAWahlP = 3371) PzdcMgzc22lHY0cD08PE0wN IEpIhI9VVMvunF0Sts0KZLp EUVdhEXsN116a8odl0ylydB xxJK1pVnlSZOugbyoEfT9VK quJLXesnkuEWs7LCslDOTos KH8SXVnuGVnT6QlMGGdQZ6w nuf0MWZ8PGvoNCCzGlR4SRR mzNLiHXSmtZwfXLhdd367OB B6RfMrYSTnptXzqTvkkD2vR zKoNVCIuMRmt0Isd9WtQrZk lSJvnN9lpSknpjWiynCnFLM fa9BvZEDoEU4iKEHuSMJzEF tgOH97UVApeqSfixtqQCGnB LTznoIeebGgqxH1ILMgzV48 ynI1xZIqOlhtLHnvAMiiK71 qb6jfFCSkPZNrz35iUY25RK GmJ2Zvh74mGpGhaOMooD== Gross assessment was [facility]'s performed at ([facility], code = 2777) Department of Pathology, [address] [place] [address], Technical component [facility] was performed at ([facility], code = 2778) Department of Pathology, [address] [place] [address], Professional component [facility] was performed at ([facility], code = 2779) Department of Pathology, [address] [place] [address], [facility] [id number] 12:46:55Surgical Pathology Report Case: [id number] Authorizing Provider: Quintin Jacques MD Collected: 04/16/2022 09:14 AM Ordering Location: [facility] Received: 04/16/2022 09:23 AM PERIOPERATIVESERVICES Pathologist: Renetta Miranda MD Specimen: Plaque, RIGHT CAROTID ARTERY PLAQUE A. 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 Plaque.Received fresh labeled with the patient's name, MRN and "plaque" is a previously incised tubular portion of yellow-red plaque measuring 3.0 x 0.7 x 0.4 cm. The specimen is serially sectioned to reveal calcifications measuring up to 0.3 cm in thickness. Hearing Aide Technician sections are submitted in A1, following decalcification.TOMMY Abdi, HT (ASCP)Microscopic examination is performed and the salient findings areincorporated into the final diagnosis and comment sections. [facility], Department of Pathology, [address] [place] [address], [facility], [address] [place] [address], [facility], [facility] of [facility], [address] [place] [address], JYF, CHEST, 1 VIEW, NON [id number] 11:21:00Reason for exam:->s/p CEA; IntubationShould this be performed at the bedside?->Yes [facility] 1945 Sex: MFINALREPORT RAD, CHEST, 1 VIEW, NON DEPT INDICATION: s/p CEA; Intubation COMPARISON:Prior day's exam FINDINGS: Portable frontal view of the chest. IMPRESSION: Support Lines: ET tube removed.Lungs and pleura: No focal consolidation or large effusion. No overt pulmonary edema. No pneumothorax.Heart and mediastinum: Stable contours. Additional findings: None. Signed: Michi Medina [facility] Verified Date/Time: 04/19/2022 11:21:56 BASIC METABOLIC PANEL 2022-04-19 05:56:42 Test Item Value Reference Range Interpretation Comments SODIUM (BEAKER) 136 meq/L 136-145 (test code = 381) POTASSIUM 4.2 meq/L 3.5-5.1 (BEAKER) (test code = 379) CHLORIDE (BEAKER) 107 meq/L 98-107 (test code = 382) CO2 (BEAKER) 24 meq/L 22-29 (test code = 355) BLOOD UREA 27 mg/dL 7-21 H NITROGEN (BEAKER) (test code = 354) CREATININE 0.94 mg/dL 0.57-1.25 (BEAKER) (test code = 358) GLUCOSE RANDOM 238 mg/dL 70-105 H (BEAKER) (test code = 652) CALCIUM (BEAKER) 7.8 mg/dL 8.4-10.2 L (test code = 697) EGFR (BEAKER) 83 Interpretatio n of eGFR (test code = mL/min/1.73 values Stage De scription 1092) sq m Result G1 Norm al or high >=90 G2 Mildly decreased 60-89 G3a Mildl y to moderately 45-5 9 G3b Moderately to s everely 30-44 G4 Severl y decreased 15-29 G5 Kidney failure <15Reported eGF R is based on the CKD-EPI 2020 equation that d oes not use a race coefficientEsti mated GFR is not as accur ate as Creatinine Vikki marianna in predicting glom erular filtration rate . Estimated GFR is not appl icable for dialysis patien ts Belt Maker ID - [id number] 05:54:42 Test Item Value Reference Range Interpretation Comments PHOSPHORUS (BEAKER) (test code = 2.7 mg/dL 2.3-4.7 604) Belt Maker ID - [id number] 05:54:41 Test Item Value Reference Range Interpretation Comments MAGNESIUM (BEAKER) (test code = 2.3 mg/dL 1.6-2.6 627) Belt Maker ID - [id number] (HEMOGRAM ONLY)2022-04-19 04:25:09 Test Item Value Reference Range Interpretation Comments WHITE BLOOD CELL COUNT (BEAKER) 17.4 K/ L 3.5-10.5 H (test code = 775) RED BLOOD CELL COUNT (BEAKER) 3.16 M/ L 4.63-6.08 L (test code = 761) HEMOGLOBIN (BEAKER) (test code = 10.2 GM/DL 13.7-17.5 L 410) HEMATOCRIT (BEAKER) (test code = 31.3 % 40.1-51.0 L 411) MEAN CORPUSCULAR VOLUME (BEAKER) 99 fL 79-92 H (test code = 753) MEAN CORPUSCULAR HEMOGLOBIN 32.3 pg 25.7-32.2 H (BEAKER) (test code = 751) MEAN CORPUSCULAR HEMOGLOBIN CONC 32.6 GM/DL 32.3-36.5 (BEAKER) (test code = 752) RED CELL DISTRIBUTION WIDTH 12.8 % 11.6-14.4 (BEAKER) (test code = 412) PLATELET COUNT (BEAKER) (test 161 K/CU MM 150-450 code = 756) MEAN PLATELET VOLUME (BEAKER) 10.7 fL 9.4-12.4 (test code = 754) NUCLEATED RED BLOOD CELLS 0 /100 WBC 0-0 (BEAKER) (test code = 413) POC-Glucose [id number] 17:37:34 Test Item Value Reference Range Interpretation Comments POC-Glucose Meter (test 198 mg/dL 70-110 H : TE STED AT [facility] code = 1538) [address] [place] [address], [address]: Belt Maker/Techni tuyet ID = [id number] for Chavez, Cristiana Lab Interpretation (test Abnormal code = 48537-5) [facility] [id number] 17:37:34 Test Item Value Reference Range Interpretation Comments POC-Glucose Meter (test 198 mg/dL 70-110 H : TE STED AT [facility] code = 1538) [address] [place] [address], [address]: Belt Maker/Techni tuyet ID = [id number] for Chavez, Cristiana Lab Interpretation (test Abnormal code = 26287-5) [facility] [id number] 17:37:34 Test Item Value Reference Range Interpretation Comments POC-Glucose Meter (test 198 mg/dL 70-110 H : TE STED AT [facility] code = 1538) [address] [place] [address], [address]: Belt Maker/Techni tuyet ID = [id number] for Chavez, Cristiana Lab Interpretation (test Abnormal code = 18227-8) [facility] [id number] 17:37:34 Test Item Value Reference Range Interpretation Comments POC-Glucose Meter (test 198 mg/dL 70-110 H : TE STED AT [facility] code = 1538) [address] [place] [address], [address]: Belt Maker/Techni tuyet ID = [id number] for Chavez, Cristiana Lab Interpretation (test Abnormal code = 24121-2) [facility] [id number] 17:37:34 Test Item Value Reference Range Interpretation Comments POC-Glucose Meter (test 198 mg/dL 70-110 H : TE STED AT [facility] code = 1538) [facility], [address] 30: Belt Maker/Techni tuyet ID = [id number] for Cristiana Byrne Lab Interpretation (test Abnormal code = 14864-6) [facility] HospitalPO[facility]SE [id number] 17:37:34 Test Item Value Reference Range Interpretation Comments POC-GLUCOSE METER 198 mg/dL 70-110 H : TESTED A T [facility] 6720 (BEAKER) (test [facility] = [facility], 1538) [address]: Belt Maker/Techni tuyet ID = [id number] for Sa Cristiana kirkland POCT-GLUCOSE [id number] 11:12:21 Test Item Value Reference Range Interpretation Comments POC-GLUCOSE METER 154 mg/dL 70-110 H : TESTED A T [facility] 6720 (BEAKER) (test code = [facility] Juan M [facility], 1538) [address]: Belt Maker/Techni tuyet ID = [id number] for Derrick Matias (contract), [facility] nonso Blood gas, [id number] 08:01:39 Test Item Value Reference Range Interpretation Comments pH, Arterial (test code 7.59 7.35-7.45 H = 2744-1) pCO2, Arterial (test 23 See_Comment L [Autom ated message] code = 2019-8) The system [facility] generated this result transmit santo reference range : 35 - 45 mm Hg. The reference range was not used to interpret this result as normal/abnormal . pO2, Arterial (test 198 See_Comment H [Automa santo message] code = 2703-7) The system [facility] generated this result transmit santo reference range : 80 - 90 mm Hg. The reference range was not used to interpret this result as normal/abnormal . O2 Sat, Arterial (test 99.6 % 96.0-97.0 H code = 2708-6) HCO3, Arterial (test 21 mmol/L 21-29 code = 1960-4) Base Excess, Arterial 0.9 mmol/L -2.0-3.0 (test code = 1925-7) Patient Temperature 37.0 (test code = 8310-5) FIO2 (test code = 1819) 40 Lab Interpretation Abnormal (test code = 27589-2) [facility], [id number] 08:01:39 Test Item Value Reference Range Interpretation Comments pH, Arterial (test code 7.59 7.35-7.45 H = 2744-1) pCO2, Arterial (test 23 See_Comment L [Autom ated message] code = 2019-8) The system [employer] generated this result transmit santo reference range : 35 - 45 mm Hg. The reference range was not used to interpret this result as normal/abnormal . pO2, Arterial (test 198 See_Comment H [Automa santo message] code = 2703-7) The system [employer] generated this result transmit santo reference range : 80 - 90 mm Hg. The reference range was not used to interpret this result as normal/abnormal . O2 Sat, Arterial (test 99.6 % 96.0-97.0 H code = 2708-6) HCO3, Arterial (test 21 mmol/L 21-29 code = 1960-4) Base Excess, Arterial 0.9 mmol/L -2.0-3.0 (test code = 1925-7) Patient Temperature 37.0 (test code = 8310-5) FIO2 (test code = 1819) 40 Lab Interpretation Abnormal (test code = 14754-6) [facility], [id number] 08:01:39 Test Item Value Reference Range Interpretation Comments pH, Arterial (test code 7.59 7.35-7.45 H = 2744-1) pCO2, Arterial (test 23 See_Comment L [Autom ated message] code = 2019-) The system [employer] generated this result transmit santo reference range : 35 - 45 mm Hg. The reference range was not used to interpret this result as normal/abnormal . pO2, Arterial (test 198 See_Comment H [Automa santo message] code = 2703-7) The system [employer] generated this result transmit santo reference range : 80 - 90 mm Hg. The reference range was not used to interpret this result as normal/abnormal . O2 Sat, Arterial (test 99.6 % 96.0-97.0 H code = 2708-6) HCO3, Arterial (test 21 mmol/L 21-29 code = 1960-4) Base Excess, Arterial 0.9 mmol/L -2.0-3.0 (test code = 1925-7) Patient Temperature 37.0 (test code = 8310-5) FIO2 (test code = 1819) 40 Lab Interpretation Abnormal (test code = 35123-7) [facility], [id number] 08:01:39 Test Item Value Reference Range Interpretation Comments pH, Arterial (test code 7.59 7.35-7.45 H = 2744-1) pCO2, Arterial (test 23 See_Comment L [Autom ated message] code = 2019-) The system [employer] generated this result transmit santo reference range : 35 - 45 mm Hg. The reference range was not used to interpret this result as normal/abnormal . pO2, Arterial (test 198 See_Comment H [Automa santo message] code = 2703-7) The system [employer] generated this result transmit santo reference range : 80 - 90 mm Hg. The reference range was not used to interpret this result as normal/abnormal . O2 Sat, Arterial (test 99.6 % 96.0-97.0 H code = 2708-6) HCO3, Arterial (test 21 mmol/L 21-29 code = 1960-4) Base Excess, Arterial 0.9 mmol/L -2.0-3.0 (test code = 1925-7) Patient Temperature 37.0 (test code = 8310-5) FIO2 (test code = 1819) 40 Lab Interpretation Abnormal (test code = 51276-0) [facility] [id number] 08:01:39 Test Item Value Reference Range Interpretation Comments pH, Arterial (test code 7.59 7.35-7.45 H = 2744-1) pCO2, Arterial (test 23 See_Comment L [Autom ated message] code = 2018-11) The system Pulse generated this result transmit santo reference range : 35 - 45 mm Hg. The reference range was not used to interpret this result as normal/abnormal . pO2, Arterial (test 198 See_Comment H [Automa santo message] code = 2703-7) The system Pulse generated this result transmit santo reference range : 80 - 90 mm Hg. The reference range was not used to interpret this result as normal/abnormal . O2 Sat, Arterial (test 99.6 % 96.0-97.0 H code = 2708-6) HCO3, Arterial (test 21 mmol/L 21-29 code = 1960-4) Base Excess, Arterial 0.9 mmol/L -2.0-3.0 (test code = 1925-7) Patient Temperature 37.0 (test code = 8310-5) FIO2 (test code = 1819) 40 Lab Interpretation Abnormal (test code = 35344-5) [facility] [id number] 08:01:39 Test Item Value Reference Range Interpretation Comments PH ARTERIAL (BEAKER) (test code = 7.59 7.35-7.45 H 383) PCO2 ARTERIAL (BEAKER) (test code 23 mm Hg 35-45 L = 384) PO2 ARTERIAL (BEAKER) (test code = 198 mm Hg 80-90 H 385) O2 SATURATION ARTERIAL (BEAKER) 99.6 % 96.0-97.0 H (test code = 386) HCO3 ARTERIAL (BEAKER) (test code 21 mmol/L 21-29 = 388) BASE EXCESS ARTERIAL (BEAKER) 0.9 mmol/L -2.0-3.0 (test code = 387) PATIENT TEMPERATURE (BEAKER) (test 37.0 code = 1818) FIO2 (BEAKER) (test code = 1819) 40.0 POCT-GLUCOSE [id number] 07:55:33 Test Item Value Reference Range Interpretation Comments POC-GLUCOSE METER 159 mg/dL 70-110 H : TESTED A T [facility] (BEAKER) (test code = [place], 1538) [address]: Belt Maker/Techni tuyet ID = [id number] for Derrick godinezFrederickMeche (contract), [facility] nonso RAD, CHEST, 1 VIEW, NON [id number] 07:51:00Reason for exam:->s/p CEA; IntubationShould this be performed at the bedside?->Yes [facility] 1945 Sex: MFINALREPORT RAD, CHEST, 1 VIEW, NON DEPT INDICATION: s/p CEA; Intubation COMPARISON:April 17, 2022 FINDINGS: Portable frontal view of the chest. IMPRESSION: Support Lines: ET tube terminates 2 cm above the malena. Lungs and pleura: No focal lung consolidation or pleural effusion. No pneumothorax.Heart and mediastinum: Stable contours. Additional findings: None. Signed: Michi Medina MDReport Verified Date/Time: 04/18/2022 07:51:18 HGB/HCT (H&H)-Stat Lab 2022-04-18 06:15:00 Test Item Value Reference Range Interpretation Comments Hemoglobin (test code = 10.7 See_Comment L [Au tomated message] 718-7) The system Virool generated this result transmitted ref erence range: 13.0 - 1 6.8 GM/DL. The refe rence range was not u sed to interpret this result as normal/abnor mal. Hematocrit (test code = 31.0 % 40.0-50.0 L 4544-3) Lab Interpretation (test Abnormal code = 65410-6) [facility] [id number] 06:15:00 Test Item Value Reference Range Interpretation Comments Hemoglobin (test code = 10.7 See_Comment L [Au tomated message] 718-7) The system Virool generated this result transmitted ref erence range: 13.0 - 1 6.8 GM/DL. The refe rence range was not u sed to interpret this result as normal/abnor mal. Hematocrit (test code = 31.0 % 40.0-50.0 L 4544-3) Lab Interpretation (test Abnormal code = 93045-7) [facility] [id number] 06:15:00 Test Item Value Reference Range Interpretation Comments Hemoglobin (test code = 10.7 See_Comment L [Au tomated message] 718-7) The system Virool generated this result transmitted ref erence range: 13.0 - 1 6.8 GM/DL. The refe rence range was not u sed to interpret this result as normal/abnor mal. Hematocrit (test code = 31.0 % 40.0-50.0 L 4544-3) Lab Interpretation (test Abnormal code = 59078-0) [facility] [id number] 06:15:00 Test Item Value Reference Range Interpretation Comments Hemoglobin (test code = 10.7 See_Comment L [Au tomated message] 718-7) The system Virool generated this result transmitted ref erence range: 13.0 - 1 6.8 GM/DL. The refe rence range was not u sed to interpret this result as normal/abnor mal. Hematocrit (test code = 31.0 % 40.0-50.0 L 4544-3) Lab Interpretation (test Abnormal code = 88430-0) [facility] [id number] 06:15:00 Test Item Value Reference Range Interpretation Comments Hemoglobin (test code = 10.7 See_Comment L [Au tomated message] 718-7) The system Virool generated this result transmitted ref erence range: 13.0 - 1 6.8 GM/DL. The refe rence range was not u sed to interpret this result as normal/abnor mal. Hematocrit (test code = 31.0 % 40.0-50.0 L 4544-3) Lab Interpretation (test Abnormal code = 49209-9) [facility] [id number] 06:15:00 Test Item Value Reference Range Interpretation Comments HEMOGLOBIN (BEAKER) (test code = 10.7 GM/DL 13.0-16.8 L 410) HEMATOCRIT (BEAKER) (test code = 31.0 % 40.0-50.0 L 411) BLOOD GAS, [id number] 06:14:59 Test Item Value Reference Range Interpretation Comments PH ARTERIAL (BEAKER) (test code = 7.56 7.35-7.45 H 383) PCO2 ARTERIAL (BEAKER) (test code 26 mm Hg 35-45 L = 384) PO2 ARTERIAL (BEAKER) (test code = 200 mm Hg 80-90 H 385) O2 SATURATION ARTERIAL (BEAKER) 99.5 % 96.0-97.0 H (test code = 386) HCO3 ARTERIAL (BEAKER) (test code 22 mmol/L 21-29 = 388) BASE EXCESS ARTERIAL (BEAKER) 0.9 mmol/L -2.0-3.0 (test code = 387) PATIENT TEMPERATURE (BEAKER) (test 36.8 code = 1818) FIO2 (BEAKER) (test code = 1819) 40.0 Potassium-Stat [id number] 06:14:48 Test Item Value Reference Range Interpretation Comments Potassium (test code = 2823-3) 3.7 meq/L 3.6-5.5 Lab Interpretation (test code = Normal 76928-7) [facility] [id number] 06:14:48 Test Item Value Reference Range Interpretation Comments Potassium (test code = 2823-3) 3.7 meq/L 3.6-5.5 Lab Interpretation (test code = Normal 84575-5) [facility] [id number] 06:14:48 Test Item Value Reference Range Interpretation Comments Potassium (test code = 2823-3) 3.7 meq/L 3.6-5.5 Lab Interpretation (test code = Normal 24959-6) [facility] [id number] 06:14:48 Test Item Value Reference Range Interpretation Comments Potassium (test code = 2823-3) 3.7 meq/L 3.6-5.5 Lab Interpretation (test code = Normal 68643-1) [facility] [id number] 06:14:48 Test Item Value Reference Range Interpretation Comments Potassium (test code = 2823-3) 3.7 meq/L 3.6-5.5 Lab Interpretation (test code = Normal 24155-7) [facility]UM[facility] [id number] 06:14:48 Test Item Value Reference Range Interpretation Comments POTASSIUM (BEAKER) (test code = 3.7 meq/L 3.6-5.5 379) Glucose-Stat [id number] 06:14:47 Test Item Value Reference Range Interpretation Comments Glucose (test code = 2345-7) 151 mg/dL 70-110 H Lab Interpretation (test code = Abnormal 75727-1) [facility] [id number] 06:14:47 Test Item Value Reference Range Interpretation Comments Sodium (test code = 2951-2) 137 meq/L 136-145 Lab Interpretation (test code = Normal 96556-5) [facility] [id number] 06:14:47 Test Item Value Reference Range Interpretation Comments Glucose (test code = 2345-7) 151 mg/dL 70-110 H Lab Interpretation (test code = Abnormal 65644-6) [facility]-Stat [id number] 06:14:47 Test Item Value Reference Range Interpretation Comments Sodium (test code = 2951-2) 137 meq/L 136-145 Lab Interpretation (test code = Normal 54705-8) [facility] [id number] 06:14:47 Test Item Value Reference Range Interpretation Comments Glucose (test code = 2345-7) 151 mg/dL 70-110 H Lab Interpretation (test code = Abnormal 56613-3) [facility]-Stat [id number] 06:14:47 Test Item Value Reference Range Interpretation Comments Sodium (test code = 2951-2) 137 meq/L 136-145 Lab Interpretation (test code = Normal 79254-8) [facility] [id number] 06:14:47 Test Item Value Reference Range Interpretation Comments Glucose (test code = 2345-7) 151 mg/dL 70-110 H Lab Interpretation (test code = Abnormal 17609-6) [facility]-Stat [id number] 06:14:47 Test Item Value Reference Range Interpretation Comments Sodium (test code = 2951-2) 137 meq/L 136-145 Lab Interpretation (test code = Normal 07709-1) [facility] [id number] 06:14:47 Test Item Value Reference Range Interpretation Comments Glucose (test code = 2345-7) 151 mg/dL 70-110 H Lab Interpretation (test code = Abnormal 65701-0) [facility]-Stat [id number] 06:14:47 Test Item Value Reference Range Interpretation Comments Sodium (test code = 2951-2) 137 meq/L 136-145 Lab Interpretation (test code = Normal 29771-7) [facility] [id number] 06:14:47 Test Item Value Reference Range Interpretation Comments GLUCOSE RANDOM (BEAKER) (test code 151 mg/dL 70-110 H = 652) SODIUM NA-STAT [id number] 06:14:47 Test Item Value Reference Range Interpretation Comments SODIUM (BEAKER) (test code = 381) 137 meq/L 136-145 POCT-GLUCOSE [id number] 05:40:25 Test Item Value Reference Range Interpretation Comments POC-GLUCOSE METER 141 mg/dL 70-110 H : TESTED A T [facility] (BEAKER) (test code = [place], 1538) [address]: Belt Maker/Techni tuyet ID = [id number] for Brett Forde [id number] 02:42:02 Test Item Value Reference Range Interpretation Comments MAGNESIUM (BEAKER) (test code = 2.4 mg/dL 1.6-2.6 627) Belt Maker ID - ANDREWS [id number] 02:42:02 Test Item Value Reference Range Interpretation Comments PHOSPHORUS (BEAKER) (test code = 2.9 mg/dL 2.3-4.7 604) Belt Maker ID - ANDREWS GBASIC METABOLIC [id number] 02:42:01 Test Item Value Reference Range Interpretation Comments SODIUM (BEAKER) 140 meq/L 136-145 (test code = 381) POTASSIUM 4.0 meq/L 3.5-5.1 (BEAKER) (test code = 379) CHLORIDE (BEAKER) 109 meq/L 98-107 H (test code = 382) CO2 (BEAKER) 21 meq/L 22-29 L (test code = 355) BLOOD UREA 24 mg/dL 7-21 H NITROGEN (BEAKER) (test code = 354) CREATININE 0.91 mg/dL 0.57-1.25 (BEAKER) (test code = 358) GLUCOSE RANDOM 150 mg/dL 70-105 H (BEAKER) (test code = 652) CALCIUM (BEAKER) 8.4 mg/dL 8.4-10.2 (test code = 697) EGFR (BEAKER) 87 Interpretatio n of eGFR (test code = mL/min/1.73 values Stage De scription 1092) sq m Result G1 Kaylie l or high >=90 G2 Mildly decreased 60-89 G3a Mildl y to moderately 45-5 9 G3b Moderately to s everely 30-44 G4 Severl y decreased 15-29 G5 Kidney failure <15Reported eGF R is based on the CKD-EPI 2020 equation that d oes not use a race coefficientEsti mated GFR is not as accur ate as Creatinine Vikki marianna in predicting glom erular filtration rate . Estimated GFR is not appl icable for dialysis patien ts Belt Maker ID - ANDREWS GCALCIUM, [id number] 02:17:31 Test Item Value Reference Range Interpretation Comments CALCIUM IONIZED (BEAKER) (test 1.03 mmol/L 1.12-1.27 L code = 698) PH, BLOOD (BEAKER) (test code = 7.46 1810) BLOOD GAS, [id number] 02:17:26 Test Item Value Reference Range Interpretation Comments PH ARTERIAL (BEAKER) (test code = 7.47 7.35-7.45 H 383) PCO2 ARTERIAL (BEAKER) (test code 34 mm Hg 35-45 L = 384) PO2 ARTERIAL (BEAKER) (test code = 190 mm Hg 80-90 H 385) O2 SATURATION ARTERIAL (BEAKER) 99.4 % 96.0-97.0 H (test code = 386) HCO3 ARTERIAL (BEAKER) (test code 24 mmol/L 21-29 = 388) BASE EXCESS ARTERIAL (BEAKER) 0.4 mmol/L -2.0-3.0 (test code = 387) PATIENT TEMPERATURE (BEAKER) (test 36.7 code = 1818) FIO2 (BEAKER) (test code = 1819) 40.0 CBC (HEMOGRAM ONLY)2022-04-18 02:11:57 Test Item Value Reference Range Interpretation Comments WHITE BLOOD CELL COUNT (BEAKER) 22.5 K/ L 3.5-10.5 H (test code = 775) RED BLOOD CELL COUNT (BEAKER) 3.18 M/ L 4.63-6.08 L (test code = 761) HEMOGLOBIN (BEAKER) (test code = 10.3 GM/DL 13.7-17.5 L 410) HEMATOCRIT (BEAKER) (test code = 30.9 % 40.1-51.0 L 411) MEAN CORPUSCULAR VOLUME (BEAKER) 97 fL 79-92 H (test code = 753) MEAN CORPUSCULAR HEMOGLOBIN 32.4 pg 25.7-32.2 H (BEAKER) (test code = 751) MEAN CORPUSCULAR HEMOGLOBIN CONC 33.3 GM/DL 32.3-36.5 (BEAKER) (test code = 752) RED CELL DISTRIBUTION WIDTH 12.8 % 11.6-14.4 (BEAKER) (test code = 412) PLATELET COUNT (BEAKER) (test 155 K/CU MM 150-450 code = 756) MEAN PLATELET VOLUME (BEAKER) 10.5 fL 9.4-12.4 (test code = 754) NUCLEATED RED BLOOD CELLS 0 /100 WBC 0-0 (BEAKER) (test code = 413) POCT-GLUCOSE [id number] 02:11:35 Test Item Value Reference Range Interpretation Comments POC-GLUCOSE METER 143 mg/dL 70-110 H : TESTED A T [facility] 6720 (BEAKER) (test code = [facility], 153) [address]: Belt Maker/Techni tuyet ID = [id number] for Brett Forde POCT-GLUCOSE [id number] 23:59:08 Test Item Value Reference Range Interpretation Comments POC-GLUCOSE METER 129 mg/dL 70-110 H : TESTED A T [facility] (BEAKER) (test code = [facility], 153) [address]: Belt Maker/Techni tuyet ID = [id number] for Macey y, Brett POCT-GLUCOSE [id number] 22:49:32 Test Item Value Reference Range Interpretation Comments POC-GLUCOSE METER 131 mg/dL 70-110 H : TESTED A T [facility] 6720 (BEAKER) (test code = [facility], 1538) 17012: Belt Maker/Techni tuyet ID = [id number] for Brett Forde POCT-GLUCOSE [id number] 21:52:39 Test Item Value Reference Range Interpretation Comments POC-GLUCOSE METER 130 mg/dL 70-110 H : TESTED A T [facility] 67[address] (BEAKER) (test code = [facility], 1538) [address]: Belt Maker/Techni tuyet ID = [id number] for Brett Forde POCT-GLUCOSE [id number] 20:38:26 Test Item Value Reference Range Interpretation Comments POC-GLUCOSE METER 157 mg/dL 70-110 H : TESTED A T [facility] [address] (BEAKER) (test code = RICK Mcgow[facility], 1538) 14216: Belt Maker/Techni tuyet ID = [id number] for Brett Forde HGB/HCT (H&H) - STAT [id number] 20:13:43 Test Item Value Reference Range Interpretation Comments HEMOGLOBIN (BEAKER) (test code = 11.6 GM/DL 13.0-16.8 L 410) HEMATOCRIT (BEAKER) (test code = 34.0 % 40.0-50.0 L 411) BLOOD GAS, [id number] 20:13:37 Test Item Value Reference Range Interpretation Comments PH ARTERIAL (BEAKER) (test code = 7.55 7.35-7.45 H 383) PCO2 ARTERIAL (BEAKER) (test code 26 mm Hg 35-45 L = 384) PO2 ARTERIAL (BEAKER) (test code = 185 mm Hg 80-90 H 385) O2 SATURATION ARTERIAL (BEAKER) 99.5 % 96.0-97.0 H (test code = 386) HCO3 ARTERIAL (BEAKER) (test code 22 mmol/L 21-29 = 388) BASE EXCESS ARTERIAL (BEAKER) 0.6 mmol/L -2.0-3.0 (test code = 387) PATIENT TEMPERATURE (BEAKER) (test 36.5 code = 1818) FIO2 (BEAKER) (test code = 1819) 40.0 POTASSIUM-STAT [id number] 20:13:27 Test Item Value Reference Range Interpretation Comments POTASSIUM (BEAKER) (test code = 3.8 meq/L 3.6-5.5 379) GLUCOSE-STAT [id number] 20:13:26 Test Item Value Reference Range Interpretation Comments GLUCOSE RANDOM (BEAKER) (test code 165 mg/dL 70-110 H = 652) SODIUM NA-STAT [id number] 20:13:26 Test Item Value Reference Range Interpretation Comments SODIUM (CHRISTIANO) (test code = 381) 136 meq/L 136-145 POCT-GLUCOSE [id number] 19:35:21 Test Item Value Reference Range Interpretation Comments POC-GLUCOSE METER 160 mg/dL 70-110 H : TESTED A T [facility] (CHRISTIANO) (test code = [place], 1538) 62581: Belt Maker/Techni tuyet ID = [id number] for Brett Forde SARS-CoV2/RT-PCR (Asymptomatic ONLY)2022-04-17 19:33:24 Test Item Value Reference Interpretation Comments Range SARS-COV2/RT-PCR Negative Negative The SARS-Co V-2 (test code = target nucleic 33333-1) acids are not detected in thi s specimen. Negat reena results do not preclude SARS-C oV-2 infection and should not be u sed as the sole bas is for patient management decisions. Nega tive results must be combined with clinical observations, patient history , and epidemiolog ical information. A false negative result may occu r if a specimen is improperly collected, transported or handled. This S ARS CoV-2 test is a rapid, real-freeman e RT-PCR test intended for th e qualitative detection of nucleic acid fr om SARS-CoV-2 in a nasopharyngeal swab specimen collec santo from individual s suspected of COVID-19 by the ir healthcare provider. CHI (test code = This test has been CHI) authorized by FDA under an EUA for use by authorized laboratories. This test is only authorized for the duration of the declaration that circumstances exist justifying the authorization of emergency use of in vitro diagnostic tests for detection and/or diagnosis of COVID-19 under Section 564(b)(1) of the Federal Food, Drug and Cosmetic Act, 21 U.S.C. 360bbb-3(b)(1), unless the authorization is terminated or revoked sooner. Fact Sheet for Healthcare Providers: https://www.Otogami/Documents/Xp ert%20Xpress%20SAR S%20CoV-2/Fact%20S heets/3023802%20S ARS-COV-2%20HEALTH CARE%20PROVIDERS%2 0FACT%20SHEET.pdf Fact Sheet for Healthcare Patients: https://www.[employer]/Documents/Xp ert%20Xpress%20SAR S%20CoV-2/Fact%20S heets/302-3801%20S ARS-COV-2%20PATIEN T%20FACT%20SHEET.p df Lab Interpretation Normal (test code = 86528-4) [facility]2022-04-17 19:33:24 Test Item Value Reference Interpretation Comments Range SARS-COV2/RT-PCR Negative Negative The SARS-Co V-2 (test code = target nucleic 81010-0) acids are not detected in thi s specimen. Negat reena results do not preclude SARS-C oV-2 infection and should not be u sed as the sole bas is for patient management decisions. Nega tive results must be combined with clinical observations, patient history , and epidemiolog ical information. A false negative result may occu r if a specimen is improperly collected, transported or handled. This S ARS CoV-2 test is a rapid, real-freeman e RT-PCR test intended for th e qualitative detection of nucleic acid fr om SARS-CoV-2 in a nasopharyngeal swab specimen colle santo from individual s suspected of COVID-19 by the ir healthcare provider. CHI (test code = This test has been CHI) authorized by FDA under an EUA for use by authorized laboratories. This test is only authorized for the duration of the declaration that circumstances exist justifying the authorization of emergency use of in vitro diagnostic tests for detection and/or diagnosis of COVID-19 under Section 564(b)(1) of the Federal Food, Drug and Cosmetic Act, 21 U.S.C. 360bbb-3(b)(1), unless the authorization is terminated or revoked sooner. Fact Sheet for Healthcare Providers: https://www.Ot[employer]ami/Documents/Xp ert%20Xpress%20SAR S%20CoV-2/Fact%20S heets/3023802%20S ARS-COV-2%20HEALTH CARE%20PROVIDERS%2 0FACT%20SHEET.pdf Fact Sheet for Healthcare Patients: https://www.[employer]/Documents/Xp ert%20Xpress%20SAR S%20CoV-2/Fact%20S heets/302-3801%20S ARS-COV-2%20PATIEN T%20FACT%20SHEET.p df Lab Interpretation Normal (test code = 74045-5) [facility]2022-04-17 19:33:24 Test Item Value Reference Interpretation Comments Range SARS-COV2/RT-PCR Negative Negative The SARS-Co V-2 (test code = target nucleic 65153-6) acids are not detected in thi s specimen. Negat reena results do not preclude SARS-C oV-2 infection and should not be u sed as the sole bas is for patient management decisions. Nega tive results must be combined with clinical observations, patient history , and epidemiolog ical information. A false negative result may occu r if a specimen is improperly collected, transported or handled. This S ARS CoV-2 test is a rapid, real-freeman e RT-PCR test intended for th e qualitative detection of nucleic acid fr om SARS-CoV-2 in a nasopharyngeal swab specimen collec santo from individual s suspected of COVID-19 by the ir healthcare provider. CHI (test code = This test has been CHI) authorized by FDA under an EUA for use by authorized laboratories. This test is only authorized for the duration of the declaration that circumstances exist justifying the authorization of emergency use of in vitro diagnostic tests for detection and/or diagnosis of COVID-19 under Section 564(b)(1) of the Federal Food, Drug and Cosmetic Act, 21 U.S.C. 360bbb-3(b)(1), unless the authorization is terminated or revoked sooner. Fact Sheet for Healthcare Providers: https://www.Otogami/Documents/Xp ert%20Xpress%20SAR S%20CoV-2/Fact%20S heets/302-3802%20S ARS-COV-2%20HEALTH CARE%20PROVIDERS%2 0FACT%20SHEET.pdf Fact Sheet for Healthcare Patients: https://www.[employer]/Documents/Xp ert%20Xpress%20SAR S%20CoV-2/Fact%20S heets/302-3801%20S ARS-COV-2%20PATIEN T%20FACT%20SHEET.p df Lab Interpretation Normal (test code = 93953-9) [facility]2022-04-17 19:33:24 Test Item Value Reference Interpretation Comments Range SARS-COV2/RT-PCR Negative Negative The SARS-Co V-2 (test code = target nucleic 93848-9) acids are not detected in thi s specimen. Negat reena results do not preclude SARS-C oV-2 infection and should not be u sed as the sole bas is for patient management decisions. Nega tive results must be combined with clinical observations, patient history , and epidemiolog ical information. A false negative result may occu r if a specimen is improperly collected, transported or handled. This S ARS CoV-2 test is a rapid, real-freeman e RT-PCR test intended for th e qualitative detection of nucleic acid fr om SARS-CoV-2 in a nasopharyngeal swab specimen collec santo from individual s suspected of COVID-19 by the ir healthcare provider. CHI (test code = This test has been CHI) authorized by FDA under an EUA for use by authorized laboratories. This test is only authorized for the duration of the declaration that circumstances exist justifying the authorization of emergency use of in vitro diagnostic tests for detection and/or diagnosis of COVID-19 under Section 564(b)(1) of the Federal Food, Drug and Cosmetic Act, 21 U.S.C. 360bbb-3(b)(1), unless the authorization is terminated or revoked sooner. Fact Sheet for Healthcare Providers: https://www.Otog[employer]/Documents/Xp ert%20Xpress%20SAR S%20CoV-2/Fact%20S heets/302-3802%20S ARS-COV-2%20HEALTH CARE%20PROVIDERS%2 0FACT%20SHEET.pdf Fact Sheet for Healthcare Patients: https://www.[employer]/Documents/Xp ert%20Xpress%20SAR S%20CoV-2/Fact%20S heets/302-3801%20S ARS-COV-2%20PATIEN T%20FACT%20SHEET.p df Lab Interpretation Normal (test code = 73158-8) [facility]2022-04-17 19:33:24 Test Item Value Reference Interpretation Comments Range SARS-COV2/RT-PCR Negative Negative The SARS-Co V-2 (test code = target nucleic 61713-7) acids are not detected in thi s specimen. Negat reena results do not preclude SARS-C oV-2 infection and should not be u sed as the sole bas is for patient management decisions. Nega tive results must be combined with clinical observations, patient history , and epidemiolog ical information. A false negative result may occu r if a specimen is improperly collected, transported or handled. This S ARS CoV-2 test is a rapid, real-freeman e RT-PCR test intended for th e qualitative detection of nucleic acid fr om SARS-CoV-2 in a nasopharyngeal swab specimen collec santo from individual s suspected of COVID-19 by the ir healthcare provider. CHI (test code = This test has been CHI) authorized by FDA under an EUA for use by authorized laboratories. This test is only authorized for the duration of the declaration that circumstances exist justifying the authorization of emergency use of in vitro diagnostic tests for detection and/or diagnosis of COVID-19 under Section 564(b)(1) of the Federal Food, Drug and Cosmetic Act, 21 U.S.C. 360bbb-3(b)(1), unless the authorization is terminated or revoked sooner. Fact Sheet for Healthcare Providers: https://www.Otogami/Documents/Xp ert%20Xpress%20SAR S%20CoV-2/Fact%20S heets/3023802%20S ARS-COV-2%20HEALTH CARE%20PROVIDERS%2 0FACT%20SHEET.pdf Fact Sheet for Healthcare Patients: https://www.[employer]ogami/Documents/Xp ert%20Xpress%20SAR S%20CoV-2/Fact%20S heets/3023801%20S ARS-COV-2%20PATIEN T%20FACT%20SHEET.p df Lab Interpretation Normal (test code = 43488-2) [facility]2022-04-17 19:33:24 Test Item Value Reference Range Interpretation Comments SARS-COV2/RT-PCR Negative Negative The SARS-Co V-2 target (test code = nucleic acids a re not 0652209) detected in thi s specimen. Negative result s do not preclude SARS-C oV-2 infection and s hould not be used as the leticia e basis for patient managem ent decisions. Nega tive results must be combine d with clinical observ ations, patient history , and epidemiological information. A false negativ e result may occur if a spec imen is improperly elio ected, transported or handled. This SARS CoV-2 test is a rapid, real-time RT-PC R test intended for th e qualitative detection of nu cleic acid from SARS-CoV-2 in a nasopharyngeal swab specimen collected from individuals suspected of CO VID-19 by their healthcar e provider. This test has been authorized by FDA under an EUA for use by authorized laboratories. This test is only authorized for the duration of the declaration that circumstances exist justifying the authorization of emergency use of in vitro diagnostic tests for detection and/or diagnosis of COVID-19 under Section 564(b)(1) of the Federal Food, Drug and Cosmetic Act, 21 U.S.C. 360bbb-3(b)(1), unless the authorization is terminated or revoked sooner. Fact Sheet for Healthcare Providers: https://www.[employer].Genlot m/Documents/Xpert%20Xpress%20SARS%20CoV-2/Fact%20Sheets/302-1742%98ZNVR-DVZ-0%20 HEALTHCARE%20PROVIDERS%20FACT%20SHEET.pdf Fact Sheet for Healthcare Patients: https://www.[employer]/Documents/Xpert%20Xp ress%20SARS%20CoV-2/Fact%20Sheets/302-4961%28IONA-JIZ-5%20PATIENT%20FACT%20SHEET .pdfPOCT-GLUCOSE [id number] 18:39:54 Test Item Value Reference Range Interpretation Comments POC-GLUCOSE METER 138 mg/dL 70-110 H : TESTED A T [facility] (BEAKER) (test code [facility], = 1538) 92384: Belt Maker/Techni tuyet ID = [id number] for Goul braine (contract), Charlie ae POCT-GLUCOSE [id number] 16:57:13 Test Item Value Reference Range Interpretation Comments POC-GLUCOSE METER 138 mg/dL 70-110 H : TESTED A T [facility] 6720 (BEAKER) (test code [facility], = 1538) 89594: Belt Maker/Techni tuyet ID = [id number] for Goul braine (contract), Charlie ae POCT-GLUCOSE [id number] 14:34:02 Test Item Value Reference Range Interpretation Comments POC-GLUCOSE METER 170 mg/dL 70-110 H : TESTED A T [facility] 6720 (BEAKER) (test code [facility], = 1538) 42810: Belt Maker/Techni tuyet ID = [id number] for Goul braine (contract), Charlie ae POCT-GLUCOSE [id number] 13:03:05 Test Item Value Reference Range Interpretation Comments POC-GLUCOSE METER 182 mg/dL 70-110 H : TESTED A T [facility] 6720 (BEAKER) (test code [facility], = 1538) 28233: Belt Maker/Techni tuyet ID = [id number] for Goul braine (contract), Charlie ae POCT-GLUCOSE [id number] 11:53:11 Test Item Value Reference Range Interpretation Comments POC-GLUCOSE METER 180 mg/dL 70-110 H : TESTED A T [facility] 6720 (BEAKER) (test code = [facility], 1538) 40377: Belt Maker/Techni tuyet ID = [id number] for CA NO, JOSE ARMANDO [id number] 10:35:48 Test Item Value Reference Range Interpretation Comments MAGNESIUM (BEAKER) (test code = 2.5 mg/dL 1.6-2.6 627) Belt Maker ID - JOHAN [id number] 10:35:48 Test Item Value Reference Range Interpretation Comments PHOSPHORUS (BEAKER) (test code = 2.6 mg/dL 2.3-4.7 604) Belt Maker ID - JOHAN LBASIC METABOLIC [id number] 10:35:47 Test Item Value Reference Range Interpretation Comments SODIUM (BEAKER) 140 meq/L 136-145 (test code = 381) POTASSIUM 4.4 meq/L 3.5-5.1 (BEAKER) (test code = 379) CHLORIDE (BEAKER) 108 meq/L 98-107 H (test code = 382) CO2 (BEAKER) 23 meq/L 22-29 (test code = 355) BLOOD UREA 24 mg/dL 7-21 H NITROGEN (BEAKER) (test code = 354) CREATININE 0.93 mg/dL 0.57-1.25 (BEAKER) (test code = 358) GLUCOSE RANDOM 150 mg/dL 70-105 H (BEAKER) (test code = 652) CALCIUM (BEAKER) 8.9 mg/dL 8.4-10.2 (test code = 697) EGFR (BEAKER) 85 Interpretatio n of eGFR (test code = mL/min/1.73 values Stage De scription 1092) sq m Result G1 Kaylie l or high >=90 G2 Mildly decreased 60-89 G3a Mildl y to moderately 45-5 9 G3b Moderately to s everely 30-44 G4 Severl y decreased 15-29 G5 Kidne y failure <15Reported eGF R is based on the CKD-EPI 2020 equation that d oes not use a race coefficientEsti mated GFR is not as accur ate as Creatinine Vikki marianna in predicting glom erular filtration rate . Estimated GFR is not appl icable for dialysis patien ts Belt Maker ID - PIAYA LPOCT-GLUCOSE [id number] 09:12:54 Test Item Value Reference Range Interpretation Comments POC-GLUCOSE METER 119 mg/dL 70-110 H : TESTED A T [facility] 6720 (BEAKER) (test code [facility], = 1538) 32329: Belt Maker/Techni tuyet ID = [id number] for Goul braine (contract), Charlie watkins POCT-GLUCOSE [id number] 08:40:28 Test Item Value Reference Range Interpretation Comments POC-GLUCOSE METER 91 mg/dL 70-110 : TESTED A T [facility] 6720 (BEAKER) (test code [facility], = 1538) 88427: Belt Maker/Techni tuyet ID = [id number] for Goul braine (contract), Charlie watkins RAD, CHEST, 1 VIEW, NON [id number] 08:16:00Reason for exam:->s/p CEA; IntubationShould this be performed at the bedside?->Yes [facility] 1945 Sex: MFINALREPORT RAD, CHEST, 1 VIEW, NON DEPT INDICATION: s/p CEA; Intubation COMPARISON:Prior day's exam FINDINGS: Portable frontal view of the chest. IMPRESSION: Support Lines: ET tube terminates 4 cm above the malena. Lungs and pleura: No focal lung consolidation, pleural effusion or pneumothorax.Heart and mediastinum: Stable contours. Signed: Michi Medina MDReport Verified Date/Time: 04/17/2022 08:16:35 POCT-GLUCOSE [id number] 08:10:05 Test Item Value Reference Range Interpretation Comments POC-GLUCOSE METER 89 mg/dL 70-110 : TESTED A T [facility] 6720 ([employer]) (test code [facility], = 1538) 87495: Belt Maker/Techni tuyet ID = [id number] for Anil kennedy (contract)Charlie june POCT-GLUCOSE [id number] 06:44:03 Test Item Value Reference Range Interpretation Comments POC-GLUCOSE METER 119 mg/dL 70-110 H : TESTED A T [facility] 6720 ([employer]) (test code = [facility], 1538) 85076: Belt Maker/Techni tuyet ID = [id number] for ROGERS RASHID POCT-GLUCOSE [id number] 05:52:57 Test Item Value Reference Range Interpretation Comments POC-GLUCOSE METER 139 mg/dL 70-110 H : TESTED A T [facility] (BEAKER) (test code = [place], 1538) 90857: Belt Maker/Techni tuyet ID = [id number] for ROGERS RASHID [id number] 04:47:58 Test Item Value Reference Range Interpretation Comments MAGNESIUM (BEAKER) (test code = 2.7 mg/dL 1.6-2.6 H 627) Belt Maker ID - JOHAN [id number] 04:47:58 Test Item Value Reference Range Interpretation Comments PHOSPHORUS (BEAKER) (test code = 3.0 mg/dL 2.3-4.7 604) Belt Maker ID - JOHAN LBASIC METABOLIC [id number] 04:47:57 Test Item Value Reference Range Interpretation Comments SODIUM (BEAKER) 135 meq/L 136-145 L (test code = 381) POTASSIUM 4.0 meq/L 3.5-5.1 (BEAKER) (test code = 379) CHLORIDE (BEAKER) 106 meq/L 98-107 (test code = 382) CO2 (BEAKER) 22 meq/L 22-29 (test code = 355) BLOOD UREA 25 mg/dL 7-21 H NITROGEN (BEAKER) (test code = 354) CREATININE 1.13 mg/dL 0.57-1.25 (BEAKER) (test code = 358) GLUCOSE RANDOM 192 mg/dL 70-105 H (BEAKER) (test code = 652) CALCIUM (BEAKER) 8.8 mg/dL 8.4-10.2 (test code = 697) EGFR (BEAKER) 67 Interpretatio n of eGFR (test code = mL/min/1.73 values Stage De scription 1092) sq m Result G1 Kaylie l or high >=90 G2 Mildly decreased 60-89 G3a Mildl y to moderately 45-5 9 G3b Moderately to s everely 30-44 G4 Severl y decreased 15-29 G5 Kidney failure <15Reported eGF R is based on the CKD-EPI 1 equation that d oes not use a race coefficientEsti mated GFR is not as accur ate as Creatinine Vikki cabral in predicting glom erular filtration rate . Estimated GFR is not appl icable for dialysis patien ts Belt Maker ID - JOHAN LPOCT-GLUCOSE [id number] 04:42:16 Test Item Value Reference Range Interpretation Comments POC-GLUCOSE METER 152 mg/dL 70-110 H : TESTED A T [facility] 6720 (BEAKER) (test code = [facility] Juan M [facility], 1538) 67296: Belt Maker/Techni tuyet ID = [id number] for HU ROGERS MONTANEZ CBC (HEMOGRAM ONLY)2022-04-17 03:57:38 Test Item Value Reference Range Interpretation Comments WHITE BLOOD CELL COUNT (BEAKER) 19.7 K/ L 3.5-10.5 H (test code = 775) RED BLOOD CELL COUNT (BEAKER) 3.45 M/ L 4.63-6.08 L (test code = 761) HEMOGLOBIN (BEAKER) (test code = 11.2 GM/DL 13.7-17.5 L 410) HEMATOCRIT (BEAKER) (test code = 34.0 % 40.1-51.0 L 411) MEAN CORPUSCULAR VOLUME (BEAKER) 99 fL 79-92 H (test code = 753) MEAN CORPUSCULAR HEMOGLOBIN 32.5 pg 25.7-32.2 H (BEAKER) (test code = 751) MEAN CORPUSCULAR HEMOGLOBIN CONC 32.9 GM/DL 32.3-36.5 (BEAKER) (test code = 752) RED CELL DISTRIBUTION WIDTH 12.6 % 11.6-14.4 (BEAKER) (test code = 412) PLATELET COUNT (BEAKER) (test 190 K/CU MM 150-450 code = 756) MEAN PLATELET VOLUME (BEAKER) 10.6 fL 9.4-12.4 (test code = 754) NUCLEATED RED BLOOD CELLS 0 /100 WBC 0-0 (BEAKER) (test code = 413) POCT-GLUCOSE [id number] 03:49:35 Test Item Value Reference Range Interpretation Comments POC-GLUCOSE METER 181 mg/dL 70-110 H : TESTED A T [facility] 6720 (BEAKER) (test code = [facility], 1538) 08902: Belt Maker/Techni tuyet ID = [id number] for GEN MONTANEZ, ROGERS BLOOD GAS, [id number] 03:44:13 Test Item Value Reference Range Interpretation Comments PH ARTERIAL (BEAKER) (test code = 7.39 7.35-7.45 383) PCO2 ARTERIAL (BEAKER) (test code 41 mm Hg 35-45 = 384) PO2 ARTERIAL (BEAKER) (test code 163 mm Hg 80-90 H = 385) O2 SATURATION ARTERIAL (BEAKER) 99.1 % 96.0-97.0 H (test code = 386) HCO3 ARTERIAL (BEAKER) (test code 24 mmol/L 21-29 = 388) BASE EXCESS ARTERIAL (BEAKER) -0.9 mmol/L -2.0-3.0 (test code = 387) PATIENT TEMPERATURE (BEAKER) 37.1 (test code = 1818) FIO2 (BEAKER) (test code = 1819) 40.0 HGB/HCT (H&H) - STAT [id number] 03:44:13 Test Item Value Reference Range Interpretation Comments HEMOGLOBIN (BEAKER) (test code = 12.1 GM/DL 13.0-16.8 L 410) HEMATOCRIT (BEAKER) (test code = 36.0 % 40.0-50.0 L 411) POTASSIUM-STAT [id number] 03:43:58 Test Item Value Reference Range Interpretation Comments POTASSIUM (BEAKER) (test code = 3.9 meq/L 3.6-5.5 379) GLUCOSE-STAT [id number] 03:43:57 Test Item Value Reference Range Interpretation Comments GLUCOSE RANDOM (BEAKER) (test code 188 mg/dL 70-110 H = 652) SODIUM NA-STAT [id number] 03:43:57 Test Item Value Reference Range Interpretation Comments SODIUM (BEAKER) (test code = 381) 137 meq/L 136-145 POCT-GLUCOSE [id number] 02:53:21 Test Item Value Reference Range Interpretation Comments POC-GLUCOSE METER 222 mg/dL 70-110 H : TESTED A T [facility] 6720 (BEAKER) (test code = [facility]) 95852: Belt Maker/Techni tuyet ID = [id number] for ROGERS RASHID POCT-GLUCOSE [id number] 02:14:12 Test Item Value Reference Range Interpretation Comments POC-GLUCOSE METER 224 mg/dL 70-110 H : TESTED A T [facility] 6720 (BEAKER) (test code = [facility], 1538) 81157: Belt Maker/Techni tuyet ID = [id number] for ROGERS RASHID POCT-GLUCOSE [id number] 00:32:00 Test Item Value Reference Range Interpretation Comments POC-GLUCOSE METER 264 mg/dL 70-110 H : TESTED A T [facility] 6720 (BEAKER) (test code = [place], 1538) 43088: Belt Maker/Techni tuyet ID = [id number] for ROGERS RASHID HGB/HCT (H&H) - STAT [id number] 00:29:52 Test Item Value Reference Range Interpretation Comments HEMOGLOBIN (BEAKER) (test code = 11.4 GM/DL 13.0-16.8 L 410) HEMATOCRIT (BEAKER) (test code = 34.0 % 40.0-50.0 L 411) BLOOD GAS, [id number] 00:29:51 Test Item Value Reference Range Interpretation Comments PH ARTERIAL (BEAKER) (test code = 7.40 7.35-7.45 383) PCO2 ARTERIAL (BEAKER) (test code 40 mm Hg 35-45 = 384) PO2 ARTERIAL (BEAKER) (test code 177 mm Hg 80-90 H = 385) O2 SATURATION ARTERIAL (BEAKER) 99.2 % 96.0-97.0 H (test code = 386) HCO3 ARTERIAL (BEAKER) (test code 24 mmol/L 21-29 = 388) BASE EXCESS ARTERIAL (BEAKER) -0.7 mmol/L -2.0-3.0 (test code = 387) PATIENT TEMPERATURE (BEAKER) 36.7 (test code = 1818) FIO2 (BEAKER) (test code = 1819) 60.0 SODIUM NA-STAT [id number] 00:29:51 Test Item Value Reference Range Interpretation Comments SODIUM (BEAKER) (test code = 381) 133 meq/L 136-145 L GLUCOSE-STAT [id number] 00:29:24 Test Item Value Reference Range Interpretation Comments GLUCOSE RANDOM (BEAKER) (test code 274 mg/dL 70-110 H = 652) POTASSIUM-STAT [id number] 00:29:24 Test Item Value Reference Range Interpretation Comments POTASSIUM (BEAKER) (test code = 4.2 meq/L 3.6-5.5 379) POCT-GLUCOSE [id number] 22:51:13 Test Item Value Reference Range Interpretation Comments POC-GLUCOSE METER 256 mg/dL 70-110 H : TESTED A T [facility] (BEAKER) (test code [facility], = 1538) 09667: Belt Maker/Techni tuyet ID = [id number] for Kinsey augustin (contract), Hector smith RAD, CHEST, 1 VIEW, NON [id number] 22:48:00Reason for exam:->s/p EOH, CEAShould this be performed at the bedside?->Yes [facility] 1945 Sex: MFINAL REPORT EXAM/TECHNIQUE: Single view frontal radiograph of the chest. INDICATION: s/p EOH COMPARISON: None. FINDINGS: Devices/Objects: Endotracheal tube terminates 4.5 cm above the malena. Lungs: No focal consolidation. No pleural effusion. No pneumothorax. Heart/Mediastinum: No car diomegaly. No interstitial thickening. Osseous: No acute osseous process. No suspicious osseous lesion. Upper abdomen: Unremarkable. Impression: No acute cardiopulmonary process. Signed: Chaparro Ortega MDReport Verified Date/Time: 04/16/2022 22:48:00 BASI METABOLIC [id number] 22:38:37 Test Item Value Reference Range Interpretation Comments SODIUM (BEAKER) 137 meq/L 136-145 (test code = 381) POTASSIUM 5.0 meq/L 3.5-5.1 Specimen modera tely (BEAKER) (test hemolyzed code = 379) CHLORIDE (BEAKER) 107 meq/L 98-107 (test code = 382) CO2 (BEAKER) 21 meq/L 22-29 L (test code = 355) BLOOD UREA 26 mg/dL 7-21 H NITROGEN (BEAKER) (test code = 354) CREATININE 1.31 mg/dL 0.57-1.25 H Specimen modera tely (BEAKER) (test hemolyzed code = 358) GLUCOSE RANDOM 285 mg/dL 70-105 H (BEAKER) (test code = 652) CALCIUM (BEAKER) 9.9 mg/dL 8.4-10.2 (test code = 697) EGFR (BEAKER) 56 Interpretatio n of eGFR (test code = mL/min/1.73 values Stage De scription 1092) sq m Result G1 Kaylie l or high >=90 G2 Mildly decreased 60-89 G3a Mildl y to moderately 45-5 9 G3b Moderately to s everely 30-44 G4 Severl y decreased 15-29 G5 Kidney failure <15Reported eGF R is based on the CKD-EPI 2020 equation that d oes not use a race coefficientEsti mated GFR is not as accur ate as Creatinine Vikki cabral in predicting glom erular filtration rate . Estimated GFR is not appl icable for dialysis patien ts Belt Maker ID - [id number] 22:38:36 Test Item Value Reference Range Interpretation Comments MAGNESIUM (BEAKER) 2.0 mg/dL 1.6-2.6 Specimen moderately (test code = 627) hemolyzed Belt Maker ID - [id number] 22:38:36 Test Item Value Reference Range Interpretation Comments PHOSPHORUS (BEAKER) 4.3 mg/dL 2.3-4.7 Specimen moderately (test code = 604) hemolyzed Belt Maker ID - BSLactic Acid, [id number] 22:31:08 Test Item Value Reference Range Interpretation Comments Lactate, Art (test 1.6 mmol/L 0.5-2.2 Specimen code = 6904) moderately hemolyzed [facility] (test code = [facility]) Belt Maker ID - BS Lab Interpretation Normal (test code = 67927-6) [facility], [id number] 22:31:08 Test Item Value Reference Range Interpretation Comments Lactate, Art (test 1.6 mmol/L 0.5-2.2 Specimen code = 2874) moderately hemolyzed [facility] (test code = [facility]) Belt Maker ID - BS Lab Interpretation Normal (test code = 59501-3) [facility] [id number] 22:31:08 Test Item Value Reference Range Interpretation Comments Lactate, Art (test 1.6 mmol/L 0.5-2.2 Specimen code = 2874) moderately hemolyzed [facility] (test code = [facility]) Belt Maker ID - BS Lab Interpretation Normal (test code = 37195-7) [facility], [id number] 22:31:08 Test Item Value Reference Range Interpretation Comments Lactate, Art (test 1.6 mmol/L 0.5-2.2 Specimen code = 2874) moderately hemolyzed [facility] (test code = [facility]) Belt Maker ID - BS Lab Interpretation Normal (test code = 16441-0) [facility], [id number] 22:31:08 Test Item Value Reference Range Interpretation Comments Lactate, Art (test 1.6 mmol/L 0.5-2.2 Specimen code = 2874) moderately hemolyzed [facility] (test code = [facility]) Belt Maker ID - BS Lab Interpretation Normal (test code = 35760-2) [facility], [id number] 22:31:08 Test Item Value Reference Range Interpretation Comments LACTATE BLOOD 1.6 mmol/L 0.5-2.2 Specimen moder ately ARTERIAL (2) (BEAKER) hemoly zed (test code = 2874) Belt Maker ID - [id number] 22:30:36 Test Item Value Reference Range Interpretation Comments PARTIAL THROMBOPLASTIN TIME 27.5 seconds 22.5-36.0 (BEAKER) (test code = 760) [id number] 22:30:35 Test Item Value Reference Range Interpretation Comments FIBRINOGEN LEVEL (BEAKER) (test 373 mg/dl 225-434 code = 658) PROTHROMBIN [id number] 22:29:52 Test Item Value Reference Range Interpretation Comments PROTIME (BEAKER) 15.2 seconds 11.9-14.2 H (test code = 759) INR (BEAKER) (test 1.28 See_Comment [Automat ed message] code = 370) The system [employer] generated this result transmitted ref erence range: <=5.90. The reference range was not used to int erpret this result as normal/abnormal . RECOMMENDED COUMADIN/WARFARIN INR THERAPY RANGESSTANDARD DOSE: 2.0 - 3.0 Includes: PROPHYLAXIS for venous thrombosis, systemic embolization; TREATMENT for venous thrombosis and/or pulmonary embolus.HIGH RISK: Target INR is 2.5-3.5 for patients with mechanical heart valves.CBC W/PLT COUNT & AUTO [id number] 22:22:14 Test Item Value Reference Range Interpretation Comments WHITE BLOOD CELL COUNT (BEAKER) 16.8 K/ L 3.5-10.5 H (test code = 775) RED BLOOD CELL COUNT (BEAKER) 3.44 M/ L 4.63-6.08 L (test code = 761) HEMOGLOBIN (BEAKER) (test code = 11.2 GM/DL 13.7-17.5 L 410) HEMATOCRIT (BEAKER) (test code = 34.2 % 40.1-51.0 L 411) MEAN CORPUSCULAR VOLUME (BEAKER) 99 fL 79-92 H (test code = 753) MEAN CORPUSCULAR HEMOGLOBIN 32.6 pg 25.7-32.2 H (BEAKER) (test code = 751) MEAN CORPUSCULAR HEMOGLOBIN CONC 32.7 GM/DL 32.3-36.5 (BEAKER) (test code = 752) RED CELL DISTRIBUTION WIDTH 12.9 % 11.6-14.4 (BEAKER) (test code = 412) PLATELET COUNT (BEAKER) (test 199 K/CU MM 150-450 code = 756) MEAN PLATELET VOLUME (BEAKER) 10.8 fL 9.4-12.4 (test code = 754) NUCLEATED RED BLOOD CELLS 0 /100 WBC 0-0 (BEAKER) (test code = 413) NEUTROPHILS RELATIVE PERCENT 87 % (BEAKER) (test code = 429) LYMPHOCYTES RELATIVE PERCENT 6 % (BEAKER) (test code = 430) MONOCYTES RELATIVE PERCENT 6 % (BEAKER) (test code = 431) EOSINOPHILS RELATIVE PERCENT 0 % (BEAKER) (test code = 432) BASOPHILS RELATIVE PERCENT 0 % (BEAKER) (test code = 437) NEUTROPHILS ABSOLUTE COUNT 14.64 K/ L 1.78-5.38 H (BEAKER) (test code = 670) LYMPHOCYTES ABSOLUTE COUNT 0.95 K/ L 1.32-3.57 L (BEAKER) (test code = 414) MONOCYTES ABSOLUTE COUNT (BEAKER) 1.07 K/ L 0.30-0.82 H (test code = 415) EOSINOPHILS ABSOLUTE COUNT 0.00 K/ L 0.04-0.54 L (BEAKER) (test code = 416) BASOPHILS ABSOLUTE COUNT (BEAKER) 0.02 K/ L 0.01-0.08 (test code = 417) IMMATURE GRANULOCYTES-RELATIVE 0.60 % 0.00-1.00 PERCENT (BEAKER) (test code = 2801) BLOOD GAS, [id number] 22:18:59 Test Item Value Reference Range Interpretation Comments PH ARTERIAL (BEAKER) (test code = 7.35 7.35-7.45 383) PCO2 ARTERIAL (BEAKER) (test code 42 mm Hg 35-45 = 384) PO2 ARTERIAL (BEAKER) (test code 239 mm Hg 80-90 H = 385) O2 SATURATION ARTERIAL (BEAKER) 99.5 % 96.0-97.0 H (test code = 386) HCO3 ARTERIAL (BEAKER) (test code 23 mmol/L 21-29 = 388) BASE EXCESS ARTERIAL (BEAKER) -2.5 mmol/L -2.0-3.0 L (test code = 387) PATIENT TEMPERATURE (BEAKER) 36.7 (test code = 1818) FIO2 (BEAKER) (test code = 1819) 60.0 CALCIUM, [id number] 22:18:49 Test Item Value Reference Range Interpretation Comments CALCIUM IONIZED (BEAKER) (test 1.25 mmol/L 1.12-1.27 code = 698) PH, BLOOD (BEAKER) (test code = 7.35 1810) HGB/HCT (H&H) - STAT [id number] 21:23:21 Test Item Value Reference Range Interpretation Comments HEMOGLOBIN (BEAKER) (test code = 11.2 GM/DL 13.0-16.8 L 410) HEMATOCRIT (BEAKER) (test code = 33.0 % 40.0-50.0 L 411) CALCIUM, [id number] 21:23:20 Test Item Value Reference Range Interpretation Comments CALCIUM IONIZED (BEAKER) (test 1.05 mmol/L 1.12-1.27 L code = 698) PH, BLOOD (BEAKER) (test code = 7.30 1810) BLOOD GAS, [id number] 21:23:20 Test Item Value Reference Range Interpretation Comments PH ARTERIAL (BEAKER) (test code = 7.32 7.35-7.45 L 383) PCO2 ARTERIAL (BEAKER) (test code 48 mm Hg 35-45 H = 384) PO2 ARTERIAL (BEAKER) (test code 393 mm Hg 80-90 H = 385) O2 SATURATION ARTERIAL (BEAKER) 99.8 % 96.0-97.0 H (test code = 386) HCO3 ARTERIAL (BEAKER) (test code 24 mmol/L 21-29 = 388) BASE EXCESS ARTERIAL (BEAKER) -2.6 mmol/L -2.0-3.0 L (test code = 387) PATIENT TEMPERATURE (BEAKER) 36.0 (test code = 1818) FIO2 (BEAKER) (test code = 1819) 70.0 GLUCOSE-STAT [id number] 21:22:27 Test Item Value Reference Range Interpretation Comments GLUCOSE RANDOM (BEAKER) (test code 286 mg/dL 70-110 H = 652) SODIUM NA-STAT [id number] 21:22:27 Test Item Value Reference Range Interpretation Comments SODIUM (BEAKER) (test code = 381) 137 meq/L 136-145 POTASSIUM-STAT [id number] 21:22:27 Test Item Value Reference Range Interpretation Comments POTASSIUM (BEAKER) (test code = 4.0 meq/L 3.6-5.5 379) T4, [id number] 16:07:40 Test Item Value Reference Range Interpretation Comments FREE T4 (BEAKER) (test code = 655) 0.99 ng/dL 0.70-1.48 Belt Maker ID - ADMINPOCT-GLUCOSE [id number] 12:58:17 Test Item Value Reference Range Interpretation Comments POC-GLUCOSE METER 241 mg/dL 70-110 H : TESTED A T [facility] (BEAKER) (test code = [place] X[place], 1538) [address]: Belt Maker/Techni tuyet ID = [id number] for NATALIA GRANADOS HEMOGLOBIN [id number] 11:57:21 Test Item Value Reference Range Interpretation Comments HEMOGLOBIN A1C 8.5 % See_Comment H [Automated m essage] ELECTROPHORESIS (BEAKER) The system which (test code = 3811) generated this result transmitted ref erence range: <=5.6%. The reference range was not used to int erpret this result as normal/abnormal . "The A1c is measured using a NGSP-certified method. HbA1c value equal to or greater than 6.5% as thediagnosis cutoff for diabetes. An HbA1c value of 5.7- 6.4% indicates increased risk for diabetes (prediabetes)."Belt Maker ID - [id number] 2022-04-16 10:59:46 Test Item Value Reference Range Interpretation Comments RPR SCREEN (BEAKER) (test code = Nonreactive Nonreactive 420) LIPID [id number] 09:26:47 Test Item Value Reference Range Interpretation Comments TRIGLYCERIDES (BEAKER) (test code = 110 mg/dL 540) CHOLESTEROL (BEAKER) (test code = 184 mg/dL 631) HDL CHOLESTEROL (BEAKER) (test code 49 mg/dL = 976) LDL CHOLESTEROL CALCULATED (BEAKER) 113 mg/dL (test code = 633) Triglyceride Reference Range: Low Risk <150 Borderline 150-199 High Risk 200-499 Very High Risk >=500Cholesterol Reference Range: Low Risk <200 Borderline 200-239 High Risk >240HDL Cholesterol Reference Range: Low Risk >=60 High Risk <40LDL Cholesterol Reference Range: Optimal <100 Near Optimal 100-129 Borderline 130-159 High 160-189 Very High >=190 Belt Maker ID - JOHAN LBLOOD GAS, [id number] 08:46:46 Test Item Value Reference Range Interpretation Comments PH ARTERIAL (BEAKER) (test code = 7.44 7.35-7.45 383) PCO2 ARTERIAL (BEAKER) (test code 38 mm Hg 35-45 = 384) PO2 ARTERIAL (BEAKER) (test code = 442 mm Hg 80-90 H 385) O2 SATURATION ARTERIAL (BEAKER) 99.9 % 96.0-97.0 H (test code = 386) HCO3 ARTERIAL (BEAKER) (test code 25 mmol/L 21-29 = 388) BASE EXCESS ARTERIAL (BEAKER) 1.1 mmol/L -2.0-3.0 (test code = 387) PATIENT TEMPERATURE (BEAKER) (test 37.0 code = 1818) FIO2 (BEAKER) (test code = 1819) 100.0 Hemoglobin-Stat [id number] 08:46:35 Test Item Value Reference Range Interpretation Comments Hemoglobin (test code = 13.9 See_Comment [Au tomated message] 718-7) The system [employer] generated this result transmitted ref erence range: 13.0 - 1 6.8 GM/DL. The refe rence range was not u sed to interpret this result as normal/abnor mal. Lab Interpretation (test Normal code = 69246-0) [facility] [id number] 08:46:35 Test Item Value Reference Range Interpretation Comments Hemoglobin (test code = 13.9 See_Comment [Au tomated message] 718-7) The system [employer] generated this result transmitted ref erence range: 13.0 - 1 6.8 GM/DL. The refe rence range was not u sed to interpret this result as normal/abnor mal. Lab Interpretation (test Normal code = 05831-8) [facility] [id number] 08:46:35 Test Item Value Reference Range Interpretation Comments Hemoglobin (test code = 13.9 See_Comment [Au tomated message] 718-7) The system [employer] generated this result transmitted ref erence range: 13.0 - 1 6.8 GM/DL. The refe rence range was not u sed to interpret this result as normal/abnor mal. Lab Interpretation (test Normal code = 50476-5) [facility] [id number] 08:46:35 Test Item Value Reference Range Interpretation Comments Hemoglobin (test code = 13.9 See_Comment [Au tomated message] 718-7) The system [employer] generated this result transmitted ref erence range: 13.0 - 1 6.8 GM/DL. The refe rence range was not u sed to interpret this result as normal/abnor mal. Lab Interpretation (test Normal code = 76183-0) [facility] [id number] 08:46:35 Test Item Value Reference Range Interpretation Comments Hemoglobin (test code = 13.9 See_Comment [Au tomated message] 718-7) The system [employer] generated this result transmitted ref erence range: 13.0 - 1 6.8 GM/DL. The refe rence range was not u sed to interpret this result as normal/abnor mal. Lab Interpretation (test Normal code = 00191-8) [facility] [id number] 08:46:35 Test Item Value Reference Range Interpretation Comments POTASSIUM (BEAKER) (test code = 4.0 meq/L 3.6-5.5 379) HGB/HCT (H&H) - STAT [id number] 08:46:35 Test Item Value Reference Range Interpretation Comments HEMOGLOBIN (BEAKER) (test code = 13.9 GM/DL 13.0-16.8 410) HEMATOCRIT (BEAKER) (test code = 41.0 % 40.0-50.0 411) HEMOGLOBIN-STAT [id number] 08:46:35 Test Item Value Reference Range Interpretation Comments HEMOGLOBIN (BEAKER) (test code = 13.9 GM/DL 13.0-16.8 410) GLUCOSE-STAT [id number] 08:46:34 Test Item Value Reference Range Interpretation Comments GLUCOSE RANDOM (BEAKER) (test code 239 mg/dL 70-110 H = 652) SODIUM NA-STAT [id number] 08:46:34 Test Item Value Reference Range Interpretation Comments SODIUM (BEAKER) (test code = 381) 137 meq/L 136-145 TSH/FREE T4 IF [id number] 07:28:41 Test Item Value Reference Range Interpretation Comments THYROID STIMULATING HORMONE 14.035 uIU/mL 0.350-4.940 H (BEAKER) (test code = 772) Belt Maker ID - ANDRY FERRIS [id number] 07:13:00Unlisted Reason for Exam - Click Yes and Enter Reason Below->No [facility] 1945 Sex: MFINALREPORT EXAMINATIONS: CT, CT, CT angiography brain / CT, CT, carotid, angio CLINICAL DATA: I am told there is an acute neurological deficit that there is a concern for stroke but the exact details of the patient's clinical presentation were not provided by the clinician here. TECHNIQUE: Spiral CT imaging was performed from aortic arch through the brain after bolus administration of intravenous contrast. The technologist did not specify the type of contrast given and the amount socorrelation with air noted is needed if that information is desired. Images were reviewed and processed at a workstation according to the CT angiogram protocol with post processing imaging generated. The technologist provided 3-D images of the vessels for my review along with MIP reconstructed images.COMPARISON: None. RADIATION DOSE: The estimated radiation dose was equal to a total DLP of 176 mGy*cm. Individualize radiation dose reduction techniques were employed. FINDINGS: CTA Neck:Arch and greatvessels: No dissection is seen along the top aortic arch but there is quite a bit of irregular plaque present. Some of it is soft and some of it is calcified. No aberrant right subclavian artery is seen. This is a three-vessel arch. 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 No significant narrowing seen at the beginning of the left subclavian artery or left common carotid artery. Right carotid: There is heavy calcification at the beginning of the right internal carotid artery at the top of the right carotid bulb. On the axial source data images, the diameter of the left internal carotid artery narrows down to about 1.9 mm in the proximal vessel. The normal diameter of the right internal carotid artery well above this level is equal to 4.5 mm. This implies that there is approximate 60% narrowing in the right internal carotid artery. By mass effect criteria, this would be hemodynamically significant. I would suspect there to be an elevated systolic velocity and elevated systolic ratio between right internal carotid artery right common carotid artery on a carotid duplex Doppler ultrasound. The proximal right external carotid artery looks well-preserved. No dissection or occlusion of the right internal carotid artery seen. More distal portion of the right internal carotid artery looks well-preserved without narrowing closer to the skull base. Left carotid: The left carotid bulb does not show any plaque or calcification. There is actually dilatation of the proximal left internal carotid artery compared with the distal left internal carotid artery. There certainly is no narrowing of the left internal or externalcarotid artery demonstrated on these images. The bifurcation of the left common carotid arteries well seen on sagittal image 101 and the proximal left internal carotid artery is best seen on image #99 of that sequence. No dissection or occlusion of the vessel is seen. Vertebrals: Both vertebral arteries are widely patent from their origins through the horizontal portions at C1-2 and into the posterior fossa with no dissection or aneurysm or occlusion seen. Mediastinum and neck soft tissues: The thyroid shows no evidence for enlargement or mass. The airway is well preserved at the trachea and larynx. No enlarged lymph nodes are seen in the neck. CTA Brain:Distal internal carotid arteries: The distal internal carotid arteries are well preserved in each petrous portion. No aneurysm is seen in eithercavernous sinus or elsewhere. Minimal calcification is seen in the cavernous portion of each internal carotid artery with no significant narrowing seen by mass effect criteria and with no dissection orocclusion seen. Anterior circulation: The A1 segments are both present with the left side A1 segmentslightly larger than the right. The anterior communicating artery is seen on source data image # 105from the first series. These vessels show no evidence for aneurysm. The proximal anterior cerebral arteries are unremarkable. Middle cerebral artery circulations: No intraluminal filling defects are seen in either M1 segment. The trifurcations look normal at the beginning of each sylvian fissure. Distal branching of the middle cerebral arteries is unremarkable with no evidence for spasm or vasculitisor occluded segments. No aneurysm is seen in either M1 segment or elsewhere. Posterior circulation: Both vertebral arteries have flow towards the head with no distal aneurysm or significant narrowing seen in the posterior fossa. The basilar artery looks intact and is tortuous with no evidence for any basilar tip aneurysm or occlusion. Flow to both superior cerebellar arteries is seen coming from the basilar artery. Flow to the posterior cerebral arteries is derived from the basilar artery on the left-sided midline with a small contribution of flow from a posterior communicating artery branch. On the right side, almost all of the flow to the posterior cerebral arteries derive from a large posteriorcommunicating artery branch. The [place] is shown to be complete. No aneurysm is seen at the level of either posterior communicating artery. Brain parenchyma: No dural AVM is seen showing arterial enhancement on this study. The superior sagittal sinus shows enhancement with no thrombus seen. No midline shift is seen at the level of the brain in the ventricular system. COMBINED IMPRESSION:1. Approximate 60% narrowing is suspected in the right internal carotid artery due to heavily calcified plaque. This could be checked with a carotid ultrasound.2. The proximal great vessels are somewhat tortuous with the innominate artery also showing dilatation. 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 No significant narrowing is seen in the proximal left internal carotid artery. 4. No aneurysm is seen at the [place].5. CTA of the head shows at the [place] is complete with posterior communicating arteries right greater than left and anterior communicating artery seen. The right posterior cerebral artery is largely supplied by the right posterior to indicating artery branch. Signed: Alan Solorzano [facility] Verified Date/Time: 04/16/2022 07:13:47 Electronically signedby: ALAN SOLORZANO MD on 04/16/2022 07:13 [facility] [place], CAROTID, [id number] 07:13:00Unlisted Reason for Exam - Click Yes and Enter Reason Below->No [facility] : 1945 Sex: MFINALREPORT EXAMINATIONS: CT, CT, CT angiography brain / CT, CT, carotid, angio CLINICAL DATA: I am told there is an acute neurological deficit that there is a concern for stroke but the exact details of the patient's clinical presentation were not provided by the clinician here. TECHNIQUE: Spiral CT imaging was performed from aortic arch through the brain after bolus administration of intravenous contrast. The technologist did not specify the type of contrast given and the amount socorrelation with air noted is needed if that information is desired. Images were reviewed and processed at a workstation according to the CT angiogram protocol with post processing imaging generated. The technologist provided 3-D images of the vessels for my review along with MIP reconstructed images.COMPARISON: None. RADIATION DOSE: The estimated radiation dose was equal to a total DLP of 176 mGy*cm. Individualize radiation dose reduction techniques were employed. FINDINGS: CTA Neck:Arch and greatvessels: No dissection is seen along the top aortic arch but there is quite a bit of irregular plaque present. Some of it is soft and some of it is calcified. No aberrant right subclavian artery is seen. This is a three-vessel arch. 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 No significant narrowing seen at the beginning of the left subclavian artery or left common carotid artery. Right carotid: There is heavy calcification at the beginning of the right internal carotid artery at the top of the right carotid bulb. On the axial source data images, the diameter of the left internal carotid artery narrows down to about 1.9 mm in the proximal vessel. The normal diameter of the right internal carotid artery well above this level is equal to 4.5 mm. This implies that there is approximate 60% narrowing in the right internal carotid artery. By mass effect criteria, this would be hemodynamically significant. I would suspect there to be an elevated systolic velocity and elevated systolic ratio between right internal carotid artery right common carotid artery on a carotid duplex Doppler ultrasound. The proximal right external carotid artery looks well-preserved. No dissection or occlusion of the right internal carotid artery seen. More distal portion of the right internal carotid artery looks well-preserved without narrowing closer to the skull base. Left carotid: The left carotid bulb does not show any plaque or calcification. There is actually dilatation of the proximal left internal carotid artery compared with the distal left internal carotid artery. There certainly is no narrowing of the left internal or externalcarotid artery demonstrated on these images. The bifurcation of the left common carotid arteries well seen on sagittal image 101 and the proximal left internal carotid artery is best seen on image #99 of that sequence. No dissection or occlusion of the vessel is seen. Vertebrals: Both vertebral arteries are widely patent from their origins through the horizontal portions at C1-2 and into the posterior fossa with no dissection or aneurysm or occlusion seen. Mediastinum and neck soft tissues: The thyroid shows no evidence for enlargement or mass. The airway is well preserved at the trachea and larynx. No enlarged lymph nodes are seen in the neck. CTA Brain:Distal internal carotid arteries: The distal internal carotid arteries are well preserved in each petrous portion. No aneurysm is seen in eithercavernous sinus or elsewhere. Minimal calcification is seen in the cavernous portion of each internal carotid artery with no significant narrowing seen by mass effect criteria and with no dissection orocclusion seen. Anterior circulation: The A1 segments are both present with the left side A1 segmentslightly larger than the right. The anterior communicating artery is seen on source data image # 105from the first series. These vessels show no evidence for aneurysm. The proximal anterior cerebral arteries are unremarkable. Middle cerebral artery circulations: No intraluminal filling defects are seen in either M1 segment. The trifurcations look normal at the beginning of each sylvian fissure. Distal branching of the middle cerebral arteries is unremarkable with no evidence for spasm or vasculitisor occluded segments. No aneurysm is seen in either M1 segment or elsewhere. Posterior circulation: Both vertebral arteries have flow towards the head with no distal aneurysm or significant narrowing seen in the posterior fossa. The basilar artery looks intact and is tortuous with no evidence for any basilar tip aneurysm or occlusion. Flow to both superior cerebellar arteries is seen coming from the basilar artery. Flow to the posterior cerebral arteries is derived from the basilar artery on the left-sided midline with a small contribution of flow from a posterior communicating artery branch. On the right side, almost all of the flow to the posterior cerebral arteries derive from a large posteriorcommunicating artery branch. The [place] is shown to be complete. No aneurysm is seen at the level of either posterior communicating artery. Brain parenchyma: No dural AVM is seen showing arterial enhancement on this study. The superior sagittal sinus shows enhancement with no thrombus seen. No midline shift is seen at the level of the brain in the ventricular system. COMBINED IMPRESSION:1. Approximate 60% narrowing is suspected in the right internal carotid artery due to heavily calcified plaque. This could be checked with a carotid ultrasound.2. The proximal great vessels are somewhat tortuous with the innominate artery also showing dilatation. 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 No significant narrowing is seen in the proximal left internal carotid artery. 4. No aneurysm is seen at the [place].5. CTA of the head shows at the [place] is complete with posterior communicating arteries right greater than left and anterior communicating artery seen. The right posterior cerebral artery is largely supplied by the right posterior to indicating artery branch. Signed: Alan Solorzano [facility] Verified Date/Time: 04/16/2022 07:13:47 Electronically signedby: ALAN SOLORZANO MD on 04/16/2022 07:13 AMHIGH SENSITIVITY TROPONIN [id number] 05:54:57 Test Item Value Reference Range Interpretation Comments HIGH SENSITIVITY 11 pg/ml See_Comment [Automated message] TROPONIN I (test code = The system which [id number]) generated this result transmitted ref erence range: <=35. Th e reference range was not used to int erpret this result as normal/abnormal . Belt Maker ID - PIAYA LThe FISH BIN TENDER STAT High Sensitivity Troponin-I results should be used in conjunction with other diagnostic information such as ECG, clinical observations and information, and patient symptoms to aid in the diagnosis of IA.PT/[id number] 05:47:11 Test Item Value Reference Range Interpretation Comments PROTIME (BEAKER) (test 14.0 seconds 11.9-14.2 code = 759) INR (BEAKER) (test 1.15 See_Comment [Automat ed code = 370) message] The sy stem which generated this result transmitted reference range : <=5.90. The reference range was not used to interpret this result as normal/abnormal . PARTIAL THROMBOPLASTIN 24.6 seconds 22.5-36.0 TIME (BEAKER) (test code = 760) RECOMMENDED COUMADIN/WARFARIN INR THERAPY RANGESSTANDARD DOSE: 2.0 - 3.0 Includes: PROPHYLAXIS for venous thrombosis, systemic embolization; TREATMENT for venous thrombosis and/or pulmonary embolus.HIGH RISK: Target INR is 2.5-3.5 for patients with mechanical heart valves.BASIC METABOLIC [id number] 05:45:50 Test Item Value Reference Range Interpretation Comments SODIUM (BEAKER) 137 meq/L 136-145 (test code = 381) POTASSIUM 4.4 meq/L 3.5-5.1 (BEAKER) (test code = 379) CHLORIDE (BEAKER) 102 meq/L 98-107 (test code = 382) CO2 (BEAKER) 26 meq/L 22-29 (test code = 355) BLOOD UREA 24 mg/dL 7-21 H NITROGEN (BEAKER) (test code = 354) CREATININE 1.37 mg/dL 0.57-1.25 H (BEAKER) (test code = 358) GLUCOSE RANDOM 244 mg/dL 70-105 H (BEAKER) (test code = 652) CALCIUM (BEAKER) 9.5 mg/dL 8.4-10.2 (test code = 697) EGFR (BEAKER) 53 Interpretatio n of eGFR (test code = mL/min/1.73 values Stage De scription 1092) sq m Result G1 Kaylie l or high >=90 G2 Mildly decreased 60-89 G3a Mild ly to moderately 45-5 9 G3b Moderately to s everely 30-44 G4 Severl y decreased 15-29 G5 Kidney failure <15Reported eGF R is based on the CKD-EPI 2021 equation that d oes not use a race coefficientEsti mated GFR is not as accur ate as Creatinine Vikki cabral in predicting glom erular filtration rate . Estimated GFR is not appl icable for dialysis patien ts Belt Maker ID - PIAYA GEOFFT, BRAIN, WITHOUT [id number] 05:41:00 [facility] 1945 Sex: MFINAL REPORT EXAMINATION: CT, CT, brain, without IV contrast CLINICAL DATA: I understand this patient has a neurological deficit and there is a clinical concern for stroke. The exact symptoms were not specified by the ordering physician. 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 This is a 77-year-old male PROCEDURE NOTE: Spiral images were done through the head without intravenous contrast. Axial and sagittal andcoronal images were reviewed. The estimated radiation dose was equal to a total DLP of 634 mGy*cm. Individualized radiation dose reduction techniques were employed. COMPARISON: None. FINDINGS: Edmondson-white differentiation is well preserved throughout the brain with no evidence for diffuse brain swelling/edema. No focal areas of decreased attenuation are seen to suggest contusion or territorial ischemiafrom a large vessel occlusion. No encephalomalacia from old infarct or lacunar stroke is seen. The ventricles show no evidence for midline shift or mass effect or obstructive hydrocephalus. There is some small vessel change in the periventricular white matter, but it is mild for age. Any cortical atrophy is also mild for age. No cerebellar atrophy is seen. No hemorrhage is seen in the brain parenchyma. No subdural or epidural blood or hygroma is seen. No bleeding is seen at the basilar cisterns or el sewhere in the subarachnoid space. No skull fracture is seen. No scalp pathology or postsurgical changes in the head can be seen. The mastoids are unremarkable. There is no evidence for any sinus air-fluid levels or diffuse sinusitis at the paranasal sinuses. No fluid is seen in either middle ear. Theorbital contents are unremarkable as visualized on standard brain images. IMPRESSION:1. There is some mild cortical atrophy and some mild small vessel change but no mass effect or midline shift or areaof encephalomalacia from previous infarct is seen.2. No diffuse brain swelling/edema is seen and there is no evidence for any territorial ischemia from recent large vessel occlusion.3. No hemorrhage isseen in the head and the remainder the study is unremarkable.4. Note that CT of the head without contrast is not sensitive for finding small areas of new ischemia or finding small metastases. Signed: Alan Solorzano [facility] Verified Date/Time: 04/16/2022 05:41:41 CBC W/PLT COUNT & AUTO [id number] 05:36:33 Test Item Value Reference Range Interpretation Comments WHITE BLOOD CELL COUNT (BEAKER) 15.3 K/ L 3.5-10.5 H (test code = 775) RED BLOOD CELL COUNT (BEAKER) 4.42 M/ L 4.63-6.08 L (test code = 761) HEMOGLOBIN (BEAKER) (test code = 14.5 GM/DL 13.7-17.5 410) HEMATOCRIT (BEAKER) (test code = 43.6 % 40.1-51.0 411) MEAN CORPUSCULAR VOLUME (BEAKER) 99 fL 79-92 H (test code = 753) MEAN CORPUSCULAR HEMOGLOBIN 32.8 pg 25.7-32.2 H (BEAKER) (test code = 751) MEAN CORPUSCULAR HEMOGLOBIN CONC 33.3 GM/DL 32.3-36.5 (BEAKER) (test code = 752) RED CELL DISTRIBUTION WIDTH 12.5 % 11.6-14.4 (BEAKER) (test code = 412) PLATELET COUNT (BEAKER) (test 215 K/CU MM 150-450 code = 756) MEAN PLATELET VOLUME (BEAKER) 10.4 fL 9.4-12.4 (test code = 754) NUCLEATED RED BLOOD CELLS 0 /100 WBC 0-0 (BEAKER) (test code = 413) NEUTROPHILS RELATIVE PERCENT 78 % (BEAKER) (test code = 429) LYMPHOCYTES RELATIVE PERCENT 9 % (BEAKER) (test code = 430) MONOCYTES RELATIVE PERCENT 9 % (BEAKER) (test code = 431) EOSINOPHILS RELATIVE PERCENT 3 % (BEAKER) (test code = 432) BASOPHILS RELATIVE PERCENT 0 % (BEAKER) (test code = 437) NEUTROPHILS ABSOLUTE COUNT 11.92 K/ L 1.78-5.38 H (BEAKER) (test code = 670) LYMPHOCYTES ABSOLUTE COUNT 1.41 K/ L 1.32-3.57 (BEAKER) (test code = 414) MONOCYTES ABSOLUTE COUNT (BEAKER) 1.37 K/ L 0.30-0.82 H (test code = 415) EOSINOPHILS ABSOLUTE COUNT 0.47 K/ L 0.04-0.54 (BEAKER) (test code = 416) BASOPHILS ABSOLUTE COUNT (BEAKER) 0.06 K/ L 0.01-0.08 (test code = 417) IMMATURE GRANULOCYTES-RELATIVE 0.40 % 0.00-1.00 PERCENT (BEAKER) (test code = 2801) COMPREHENSIVE METABOLIC [id number] 14:22:37 Test Item Value Reference Range Interpretation Comments TOTAL PROTEIN 7.2 gm/dL 6.0-8.3 (BEAKER) (test code = 770) ALBUMIN (BEAKER) 4.4 g/dL 3.5-5.0 (test code = 1145) ALKALINE 97 U/L 40-150 PHOSPHATASE (BEAKER) (test code = 346) BILIRUBIN TOTAL 0.4 mg/dL 0.2-1.2 (BEAKER) (test code = 377) SODIUM (BEAKER) 140 meq/L 136-145 (test code = 381) POTASSIUM (BEAKER) 4.4 meq/L 3.5-5.1 (test code = 379) CHLORIDE (BEAKER) 103 meq/L 98-107 (test code = 382) CO2 (BEAKER) (test 29 meq/L 22-29 code = 355) BLOOD UREA 23 mg/dL 7-21 H NITROGEN (BEAKER) (test code = 354) CREATININE 1.33 mg/dL 0.57-1.25 H (BEAKER) (test code = 358) GLUCOSE RANDOM 187 mg/dL 70-105 H (BEAKER) (test code = 652) CALCIUM (BEAKER) 10.0 mg/dL 8.4-10.2 (test code = 697) AST (SGOT) 24 U/L 5-34 (BEAKER) (test code = 353) ALT (SGPT) 18 U/L 6-55 (BEAKER) (test code = 347) EGFR (BEAKER) 55 Interpretatio n of eGFR (test code = 1092) mL/min/1.[address] age Description sq m Result G1 Kaylie l or high >=90 G2 Mildly decreased 60-89 G3a Mildl y to moderately 45-5 9 G3b Moderately to s everely 30-44 G4 Sever ly decreased 15-29 G5 Kidney failure <15Repo rted eGFR is based on the CKD-EPI 2021 equation t hat does not use a race coefficientEsti mated GFR is not as accur ate as Creatinine Vikki marianna in predicting glom erular filtration rate . Estimated GFR is not appl icable for dialysis patien ts Belt Maker ID - [id number] 14:05:29 Test Item Value Reference Range Interpretation Comments PROTIME (BEAKER) (test 13.2 seconds 11.9-14.2 code = 759) INR (BEAKER) (test 1.02 See_Comment [Automat ed code = 370) message] The sy stem which generated this result transmitted reference range : <=5.90. The reference range was not used to interpret this result as normal/abnormal . PARTIAL THROMBOPLASTIN 27.8 seconds 22.5-36.0 TIME (BEAKER) (test code = 760) RECOMMENDED COUMADIN/WARFARIN INR THERAPY RANGESSTANDARD DOSE: 2.0 - 3.0 Includes: PROPHYLAXIS for venous thrombosis, systemic embolization; TREATMENT for venous thrombosis and/or pulmonary embolus.HIGH RISK: Target INR is 2.5-3.5 for patients with mechanical heart valves.CBC W/PLT COUNT & AUTO [id number] 13:57:47 Test Item Value Reference Range Interpretation Comments WHITE BLOOD CELL COUNT (BEAKER) 8.3 K/ L 3.5-10.5 (test code = 775) RED BLOOD CELL COUNT (BEAKER) 4.82 M/ L 4.63-6.08 (test code = 761) HEMOGLOBIN (BEAKER) (test code = 15.5 GM/DL 13.7-17.5 410) HEMATOCRIT (BEAKER) (test code = 47.2 % 40.1-51.0 411) MEAN CORPUSCULAR VOLUME (BEAKER) 98 fL 79-92 H (test code = 753) MEAN CORPUSCULAR HEMOGLOBIN 32.2 pg 25.7-32.2 (BEAKER) (test code = 751) MEAN CORPUSCULAR HEMOGLOBIN CONC 32.8 GM/DL 32.3-36.5 (BEAKER) (test code = 752) RED CELL DISTRIBUTION WIDTH 12.3 % 11.6-14.4 (BEAKER) (test code = 412) PLATELET COUNT (BEAKER) (test 254 K/CU MM 150-450 code = 756) MEAN PLATELET VOLUME (BEAKER) 10.8 fL 9.4-12.4 (test code = 754) NUCLEATED RED BLOOD CELLS 0 /100 WBC 0-0 (BEAKER) (test code = 413) NEUTROPHILS RELATIVE PERCENT 64 % (BEAKER) (test code = 429) LYMPHOCYTES RELATIVE PERCENT 22 % (BEAKER) (test code = 430) MONOCYTES RELATIVE PERCENT 9 % (BEAKER) (test code = 431) EOSINOPHILS RELATIVE PERCENT 4 % (BEAKER) (test code = 432) BASOPHILS RELATIVE PERCENT 1 % (BEAKER) (test code = 437) NEUTROPHILS ABSOLUTE COUNT 5.27 K/ L 1.78-5.38 (BEAKER) (test code = 670) LYMPHOCYTES ABSOLUTE COUNT 1.85 K/ L 1.32-3.57 (BEAKER) (test code = 414) MONOCYTES ABSOLUTE COUNT (BEAKER) 0.73 K/ L 0.30-0.82 (test code = 415) EOSINOPHILS ABSOLUTE COUNT 0.35 K/ L 0.04-0.54 (BEAKER) (test code = 416) BASOPHILS ABSOLUTE COUNT (BEAKER) 0.05 K/ L 0.01-0.08 (test code = 417) IMMATURE GRANULOCYTES-RELATIVE 0.20 % 0.00-1.00 PERCENT (BEAKER) (test code = 2801) TISSUE [id number] 12:56:58Surgical Pathology Report Case: [id number] Authorizing Provider: Quintin Jacques MD Collected: 03/15/2022 08:28 AM Ordering Location: [facility] Received: 03/15/2022 10:24 AM PERIOPERATIVE S ERVICES Pathologist: Laurita Linder MD Specimen: Plaque, left carotid palque A. CAROTID, LEFT, ENDARTERECTOMY: - CALCIFIC ATHEROSCLEROTIC PLAQUE Signing Pathologist Direct Phone Line: [phone] signed by Laurita Linder MD on 03/28/2022 at 12:56 [id number], [id number] occlusion, leftLeft carotidA. Plaque.Received fresh labeled with the patient's name, MRN and "plaque" is a previously incised tubular portion of yellow-red plaque measuring 3.0 x 1.0 cm. The specimen is serially sectioned to reveal calcifications measuring up to 0.3 cm in thickness. Hearing Aide Technician sections are submitted in A1,following decalcification.Ye Liu. [facility], Department of Pathology, [address] [place] [address], [facility], [facility] of [facility]ology, [address] [place] [address], [facility], Department of Pathology, [address] [place] [address], UOXD-GLUCOSE [id number] 06:49:49 Test Item Value Reference Range Interpretation Comments POC-GLUCOSE METER 122 mg/dL 70-110 H : TESTED A T [facility] 6720 (BEAKER) (test code = RICK Mcgowan [facility], 1538) [address]: Belt Maker/Techni tuyet ID = [id number] for KAVYA CHICAS BASIC METABOLIC [id number] 11:29:49 Test Item Value Reference Range Interpretation Comments SODIUM (BEAKER) 135 meq/L 136-145 L (test code = 381) POTASSIUM 4.5 meq/L 3.5-5.1 (BEAKER) (test code = 379) CHLORIDE (BEAKER) 101 meq/L 98-107 (test code = 382) CO2 (BEAKER) 26 meq/L 22-29 (test code = 355) BLOOD UREA 21 mg/dL 7-21 NITROGEN (BEAKER) (test code = 354) CREATININE 1.31 mg/dL 0.57-1.25 H (BEAKER) (test code = 358) GLUCOSE RANDOM 223 mg/dL 70-105 H (BEAKER) (test code = 652) CALCIUM (BEAKER) 10.1 mg/dL 8.4-10.2 (test code = 697) EGFR (BEAKER) 56 Interpretatio n of eGFR (test code = mL/min/1.73 values Stage De scription 1092) sq m Result G1 Kaylie l or high >=90 G2 Mildly decreased 60-89 G3a Mildl y to moderately 45-5 9 G3b Moderately to s everely 30-44 G4 Severl y decreased 15-29 G5 Kidne y failure <15Reported eGF R is based on the CKD-EPI 2020 equation that d oes not use a race coefficientEsti mated GFR is not as accur ate as Creatinine Vikki marianna in predicting glom erular filtration rate . Estimated GFR is not appl icable for dialysis patien ts Belt Maker ID - [id number] 11:22:28 Test Item Value Reference Range Interpretation Comments PARTIAL THROMBOPLASTIN TIME 27.4 seconds 22.5-36.0 (BEAKER) (test code = 760) PROTHROMBIN TIME/[id number] 11:21:49 Test Item Value Reference Range Interpretation Comments PROTIME (BEAKER) 13.7 seconds 11.9-14.2 (test code = 759) INR (BEAKER) (test 1.07 See_Comment [Automat ed message] code = 370) The system V[employer] generated this result transmitted ref erence range: <=5.90. The reference range was not used to int erpret this result as normal/abnormal . RECOMMENDED COUMADIN/WARFARIN INR THERAPY RANGESSTANDARD DOSE: 2.0 - 3.0 Includes: PROPHYLAXIS for venous thrombosis, systemic embolization; TREATMENT for venous thrombosis and/or pulmonary embolus.HIGH RISK: Target INR is 2.5-3.5 for patients with mechanical heart valves.CBC W/PLT COUNT & AUTO [id number] 11:07:04 Test Item Value Reference Range Interpretation Comments WHITE BLOOD CELL COUNT (BEAKER) 10.8 K/ L 3.5-10.5 H (test code = 775) RED BLOOD CELL COUNT (BEAKER) 4.57 M/ L 4.63-6.08 L (test code = 761) HEMOGLOBIN (BEAKER) (test code = 14.8 GM/DL 13.7-17.5 410) HEMATOCRIT (BEAKER) (test code = 44.5 % 40.1-51.0 411) MEAN CORPUSCULAR VOLUME (BEAKER) 97 fL 79-92 H (test code = 753) MEAN CORPUSCULAR HEMOGLOBIN 32.4 pg 25.7-32.2 H (BEAKER) (test code = 751) MEAN CORPUSCULAR HEMOGLOBIN CONC 33.3 GM/DL 32.3-36.5 (BEAKER) (test code = 752) RED CELL DISTRIBUTION WIDTH 12.4 % 11.6-14.4 (BEAKER) (test code = 412) PLATELET COUNT (BEAKER) (test 211 K/CU MM 150-450 code = 756) MEAN PLATELET VOLUME (BEAKER) 10.7 fL 9.4-12.4 (test code = 754) NUCLEATED RED BLOOD CELLS 0 /100 WBC 0-0 (BEAKER) (test code = 413) NEUTROPHILS RELATIVE PERCENT 72 % (BEAKER) (test code = 429) LYMPHOCYTES RELATIVE PERCENT 17 % (BEAKER) (test code = 430) MONOCYTES RELATIVE PERCENT 9 % (BEAKER) (test code = 431) EOSINOPHILS RELATIVE PERCENT 1 % (BEAKER) (test code = 432) BASOPHILS RELATIVE PERCENT 0 % (BEAKER) (test code = 437) NEUTROPHILS ABSOLUTE COUNT 7.78 K/ L 1.78-5.38 H (BEAKER) (test code = 670) LYMPHOCYTES ABSOLUTE COUNT 1.88 K/ L 1.32-3.57 (BEAKER) (test code = 414) MONOCYTES ABSOLUTE COUNT (BEAKER) 0.96 K/ L 0.30-0.82 H (test code = 415) EOSINOPHILS ABSOLUTE COUNT 0.14 K/ L 0.04-0.54 (BEAKER) (test code = 416) BASOPHILS ABSOLUTE COUNT (BEAKER) 0.04 K/ L 0.01-0.08 (test code = 417) IMMATURE GRANULOCYTES-RELATIVE 0.30 % 0.00-1.00 PERCENT (BEAKER) (test code = 2801) POCT GLUCOSE (AUTOMATED)2021-09-07 12:26:55 Test Item Value Reference Range Interpretation Comments POCT GLU (test code = 6765620405) 122 mg/dL 70-110 H Lab Interpretation (test code = Abnormal 03039-9) [facility]2021-09-07 12:26:55 Test Item Value Reference Range Interpretation Comments POCT GLU (test code = 1168566412) 122 mg/dL 70-110 H Lab Interpretation (test code = Abnormal 24338-2) [facility] ([facility]OVID-19) RNA [Presence] in Respiratory specimen by SAGE with probe [id number] 18:59:10 Test Item Value Reference Range Interpretation Comments SARS-CoV-2 (COVID-19) RNA [Presence] Detected Not-Detected in Respiratory specimen by SAGE with probe detection (test code = 21374-9) Whether patient is employed in a healthcare setting (test code = 70215-8) Whether the patient has symptoms related to condition of interest (test code = 26201-1) Patient was hospitalized because of this condition (test code = 40272-0) Whether the patient was admitted to intensive care unit (ICU) for condition of interest (test code = 43505-2) Whether patient resides in a congregate care setting (test code = 56660-1) [facility]
--- NOTE | 2022-07-11 20:39 | RAD REPORT ---
EXAM DESCRIPTION: US - Lower Extremity Artery Uni Ltd - 07/11/2022 8:14 pm CLINICAL HISTORY: arterial puncture COMPARISON: No comparisons FINDINGS: Grayscale, color and power Doppler interrogation of the left lower extremity arterial syst em was performed. Normal triphasic and biphasic waveforms are seen. No stenosis, flow abnormality or hematoma. IMPRESSION: Negative study.
[2022-07-11 20:58] LABS: Absolute Lymphocytes (CBC) 1.5 K/uL (0.7-4.9); Hematocrit 41.2 % (39.6-49.0); MCV 94.4 fL (80-100); MPV 9.1 fL (7.6-11.3); RBC Red Blood Cell Count 4.37 M/uL (4.33-5.43)
[2022-07-11 21:00] LABS: Potassium 4.1 mmol/L (3.5-5.1)
[2022-07-11 21:10] LABS: Troponin High Sensitivity 20.7 pg/mL (<58.9)
--- NOTE | 2022-07-11 21:31 | ER ---
Nurse's Notes [facility] Name: Ranjit Seals Age: 77 yrs Sex: Male : 1945 Arrival Date: 07/11/2022 Time: 19:15 Bed 2 Private MD: Diagnosis: Hematoma of the arterial puncture site, discomfort of the arterial puncture site, status post angiography left lower extremity, postoperative pain Presentation: 07/11 19:33 Chief complaint: Patient states: "I had an operation this morning and now I have a knot mb9 at the incision site and it's swollen. It doesn't hurt.". Coronavirus screen: Vaccine status: Patient reports receiving the 2nd dose of the covid vaccine. Ebola Screen: No symptoms or risks identified at this time. Initial Sepsis Screen: Does the patient meet any 2 criteria? No. Patient's initial sepsis screen is negative. Does the patient have a suspected source of infection? No. Patient's initial sepsis screen is negative. Risk Assessment: Do you want to hurt yourself or someone else? Patient reports no desire to harm self or others. Onset of symptoms was July 11, 2022. 19:33 Method Of Arrival: Ambulatory mb9 19:33 Acuity: HAILEY 3 mb9 Historical: - Allergies: 19:36 No Known Allergies; mb9 - Home Meds: 19:36 clopidogrel 75 mg Oral tab 1 tab once daily [Active]; aspirin 81 mg Oral chew 1 tab mb9 once daily [Active]; Prevacid Oral [Active]; rosuvastatin Oral [Active]; furosemide 40 mg Oral tab [Active]; potassium chloride 20 mEq Oral TbTQ [Active]; carvedilol 12.5 mg oral tablet 2 times per day [Active]; glimepiride 2 mg Oral tab [Active]; isosorbide dinitrate 20 mg Oral tab [Active]; - PMHx: 19:33 CAD; Myocardial infarction; Hypertension; High Cholesterol; Diabetes - NIDDM; mb9 - PSHx: 19:36 Triple Bypass; Rotator cuff; bilateral knee; mb9 - Immunization history:: Adult Immunizations up to date. - Social history:: Smoking status: Patient denies any tobacco usage or history of. - Family history:: not pertinent. Screenin:41 [facility] ED Fall Risk Assessment (Adult) Score/Fall Risk Level 0 - 2 = Low Risk. Abuse as6 screen: Denies threats or abuse. Denies injuries from another. Nutritional screening: No deficits noted. Tuberculosis screening: No symptoms or risk factors identified. Assessment: 20:38 General: Appears in no apparent distress. Behavior is calm, cooperative. Pain: as6 Complains of pain in right hip Is chronic. Neuro: Level of Consciousness is awake, alert, obeys commands, Oriented to person, place, time, situation. Cardiovascular: Capillary refill < 3 seconds Patient's skin is warm and dry. Respiratory: Respiratory effort is even, unlabored, Respiratory pattern is regular, symmetrical. Derm: swelling to left femoral area, pressure dressing and sandbag applied by provider. Vital Signs: 19:33 BP 171 / 85; Pulse 87; Resp 18; Temp 97.9; Pulse Ox 100% ; Weight 63.5 kg; Height 5 ft. mb9 6 in. ; Pain 0/10; 20:41 BP 154 / 87; Pulse 79; Resp 16 S; Pulse Ox 98% on R/A; as6 19:33 Body Mass Index 22.60 (63.50 kg, 167.64 cm) mb9 19:33 Pain Scale: Adult mb9 ED Course: 19:15 Patient arrived in ED. ja2 19:28 Hector Chavarria MD is Attending Physician. sp4 19:33 Arm band placed on. mb9 19:36 Triage completed. mb9 20:14 Pascual Oliva, RN is Primary Nurse. as6 20:15 [facility] In Process Unspecified. EDMS 20:34 Basic Metabolic Panel Sent. ah1 20:34 CBC with Diff Sent. ah1 20:34 Troponin HS Sent. ah1 20:34 Inserted saline lock: 20 gauge in right antecubital area, using aseptic technique. ah1 Blood collected. 20:41 Placed in gown. Bed in low position. Call light in reach. Side rails up X2. Adult w/ as6 patient. Client placed on continuous cardiac and pulse oximetry monitoring. NIBP monitoring applied. Warm blanket given. 21:29 Jace Al MD is Referral Physician. sp4 Administered Medications: No medications were administered Medication: 20:41 VIS not applicable for this client. as6 Outcome: 21:30 Discharge ordered by . sp4 Signatures: Dispatcher [employer] Awa Aceves Ashby, RN RN as6 Aditi Gregory RN RN mb9 Hector Chavarria MD MD sp4 Carrie Anderson [facility]
--- NOTE | 2022-07-11 21:31 | EDPHYS ---
Physician Documentation [facility] Name: Ranjit Seals Age: 77 yrs Sex: Male : 1945 Arrival Date: 07/11/2022 Time: 19:15 Bed 2 Private MD: ED Physician Hector Chavarria HPI: 07/11 19:29 This 77 yrs old Male presents to ER via Unassigned with complaints of Post sp4 Surgical Pain. 19:38 77 year old male presents with left groin swelling after arterial puncture this morning sp4 after angiogram by Dr. Al , patient states that he has pressure dressing on it but it feels uncomfortable. . Procedures this morning - Procedure Performed: Peripheral angiogram with runoff. Indication For Procedure: Angiogram on arterial Doppler with pain lower extremity. Access: 1. The left femoral artery 4-[place] closed with manual pressure. 2. Right radial artery 6-[place] closed with TR band.. Historical: - Allergies: 19:36 No Known Allergies; mb9 - Home Meds: 19:36 clopidogrel 75 mg Oral tab 1 tab once daily [Active]; aspirin 81 mg Oral chew 1 tab mb9 once daily [Active]; Prevacid Oral [Active]; rosuvastatin Oral [Active]; furosemide 40 mg Oral tab [Active]; potassium chloride 20 mEq Oral TbTQ [Active]; carvedilol 12.5 mg oral tablet 2 times per day [Active]; glimepiride 2 mg Oral tab [Active]; isosorbide dinitrate 20 mg Oral tab [Active]; - PMHx: 19:33 CAD; Myocardial infarction; Hypertension; High Cholesterol; Diabetes - NIDDM; mb9 - PSHx: 19:36 Triple Bypass; Rotator cuff; bilateral knee; mb9 - Immunization history:: Adult Immunizations up to date. - Social history:: Smoking status: Patient denies any tobacco usage or history of. - Family history:: not pertinent. ROS: 21:23 Constitutional: Negative for fever, chills, and weight loss, Eyes: Negative for injury, sp4 pain, redness, and discharge, ENT: Negative for injury, pain, and discharge, Neck: Negative for injury, pain, and swelling, Cardiovascular: Negative for chest pain, palpitations, and edema, Respiratory: Negative for shortness of breath, cough, wheezing, and pleuritic chest pain, Abdomen/GI: Negative for abdominal pain, nausea, vomiting, diarrhea, and constipation, Back: Negative for injury and pain, : Negative for injury, bleeding, discharge, there is left of the groin swelling as reported by the patient at the side of the left femoral artery arterial puncture MS/Extremity: Negative for injury and deformity, Skin: Negative for injury, rash, and discoloration, Neuro: Negative for headache, weakness, numbness, tingling, and seizure, Psych: Negative for depression, anxiety, Allergy/Immunology: Negative for hives, rash, and allergies, Endocrine: Negative for neck swelling, polydipsia, polyuria, polyphagia, and marked weight changes, Hematologic/Lymphatic: Negative for swollen nodes, abnormal bleeding, and unusual bruising. Exam: 21:23 Constitutional: This is a well developed, well nourished patient who is awake, alert, sp4 and in no acute distress. Head/Face: Normocephalic, atraumatic. Eyes: Pupils equal round and reactive to light, extra-ocular motions intact. Lids and lashes normal. Conjunctiva and sclera are not injected. Cornea within normal limits. Periorbital areas with no swelling, redness, or edema. ENT: Nares patent. No nasal discharge, no septal abnormalities noted. Tympanic membranes are normal and external auditory canals are clear. Oropharynx with no redness, swelling, or masses, exudates, or evidence of obstruction, uvula midline. Mucous membranes moist. Neck: Trachea midline, no thyromegaly or masses palpated, and no cervical lymphadenopathy. Supple, full range of motion without nuchal rigidity, or vertebral point tenderness. No Meningismus. Chest/axilla: Normal chest wall appearance and motion. Nontender with no deformity. No lesions are appreciated. Cardiovascular: Regular rate and rhythm with a normal S1 and S2. No gallops, murmurs, or rubs. Normal PMI, no JVD. No pulse deficits. Equal full intact pulses in the left lower extremity, there is a left groin arterial puncture site without bleeding, without significant swelling, and without discoloration Respiratory: Lungs have equal breath sounds bilaterally, clear to auscultation and percussion. No rales, rhonchi or wheezes noted. No increased work of breathing, no retractions or nasal flaring. Abdomen/GI: Soft, non-tender, with normal bowel sounds. No distension or tympany. No guarding or rebound. No evidence of tenderness throughout. Back: No spinal tenderness. No costovertebral tenderness. Male : Normal genitalia with no discharge or lesions. Normal uncircumcised male Skin: Warm, dry with normal turgor. Normal color with no rashes, no lesions, and no evidence of cellulitis. MS/ Extremity: Pulses equal, no cyanosis. Neurovascular intact. Full, normal range of motion. Normal bilateral pulses that are intact, intact peripheral pulses in the left lower extremity Neuro: Awake and alert, GCS 15, oriented to person, place, time, and situation. Cranial nerves II-XII grossly intact. Motor strength 5/5 in all extremities. Sensory grossly intact. Psych: Awake, alert, with orientation to person, place and time. Behavior, mood, and affect are within normal limits. Vital Signs: 19:33 BP 171 / 85; Pulse 87; Resp 18; Temp 97.9; Pulse Ox 100% ; Weight 63.5 kg; Height 5 ft. mb9 6 in. ; Pain 0/10; 20:41 BP 154 / 87; Pulse 79; Resp 16 S; Pulse Ox 98% on R/A; as6 19:33 Body Mass Index 22.60 (63.50 kg, 167.64 cm) mb9 19:33 Pain Scale: Adult mb9 MDM: 19:38 Patient medically screened. sp4 21:23 Differential Diagnosis Arterial pseudoaneurysm, arterial puncture bleeding, sp4 subcutaneous hematoma, arterial dissection,. Data reviewed: vital signs, nurses notes, lab test result(s), radiologic studies, ultrasound. ED course: Patient dressing was exchanged and pressure dressing was applied with the weight applied to the puncture site temporarily, arterial ultrasound revealed no pseudoaneurysm, and revealed no hematoma. Patient's arterial puncture is not bleeding, and there is no significant hematoma on exam. Believe patient can be discharged home with recommendation to monitor the site for swelling or bleeding. 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 07/11 19:37 Order name: IV Saline Lock; Complete Time: 20:34 sp4 07/11 19:37 Order name: Labs collected and sent; Complete Time: 20:34 sp4 07/11 19:37 Order name: Basic Metabolic Panel sp4 07/11 19:37 Order name: Troponin HS sp4 07/11 19:37 Order name: CBC with Diff; Complete Time: 21:20 sp4 07/11 19:37 Order name: US LE Artery Uni Ltd; Complete Time: 21:20 sp4 Administered Medications: No medications were administered Disposition Summary: 07/11/22 21:30 Discharge Ordered Location: Home sp4 Problem: new sp4 Symptoms: are unchanged sp4 Condition: Stable sp4 Diagnosis - Hematoma of the arterial puncture site, discomfort of the arterial puncture site, sp4 status post angiography left lower extremity, postoperative pain Followup: sp4 - With: Jace Al MD - When: 1 - 2 days - Reason: Re-evaluation by your physician Discharge Instructions: - Discharge Summary Sheet sp4 - Angiogram, Care After, [id number] sp4 Forms: - Thank You Letter sp4 Signatures: Dispatcher [employer] Aditi Ayers RN RN mb9 Hector Chavarria MD MD sp4
[2022-07-12 05:52] VITALS: TEMP 97.9
[2022-07-12 05:54] VITALS: O2SAT 98
[2022-07-12 05:55] VITALS: BP 144/72
== END 2022-07-11 21:38 | disposition home or self-care (01) ==
LOC: ER 19:10
DX: G89.18 Other acute postprocedural pain (principal); I97.638 Postprocedural hematoma of a circulatory system organ or structure following other circulatory system procedure; Z98.890 Other specified postprocedural states; I10 Essential (primary) hypertension; I25.2 Old myocardial infarction; Z95.1 Presence of aortocoronary bypass graft; Z79.82 Long term (current) use of aspirin
CPT/HCPCS: 36415; 80048; 84484; 85025; 93926

== ENCOUNTER 2024-02-25 12:18 | Day surgery (SDC) | payer OTHER ==
[2024-02-21 13:48] LABS: Absolute Eosinophils 0.2 K/uL (0-0.5); Absolute Lymphocytes (CBC) 1.5 K/uL (0.7-4.9); Absolute Monocytes 0.9 K/uL (0.1-1.3); Absolute Neutrophil 7.5 K/uL (1.8-8.0); Basophils % 0.4 % (0-1.3); Eosinophils % 1.7 % (0-4.4); Hematocrit 41.8 % (39.6-49.0); Hemoglobin 13.8 g/dL (13.6-17.9); Lymphocytes % 14.6 % (15.3-44.8); MPV 8.7 fL (7.6-11.3); Monocytes % 8.5 % (3.3-12.3); Neutrophils % 74.8 % (41.7-73.7); Platelets 215 thou/uL (152-406); RBC Red Blood Cell Count 4.18 M/uL (4.33-5.43); Red Cell Distribution Width 13.9 % (12.1-15.2)
[2024-02-21 13:55] LABS: PT Prothrombin Time 11.4 SECONDS (9.4-12.5); PTT, Activated Partial Thromb 31.8 SECONDS (24.3-36.9); Protime INR 1.02
[2024-02-21 14:08] LABS: Anion Gap 8.9 mEq/L (5.0-15.0); Potassium 4.9 mEq/L (3.5-5.1)
--- NOTE | 2024-02-21 14:09 | RAD REPORT ---
Procedure: Chest Pa And Lat (2 Views) HISTORY: Preop for cardiac catheterization. Hypertension COMPARISON: May 2023 FINDINGS: The lungs appear clear of acute infiltrate. No significant pleural effusion noted. The heart is normal size.. Post surgical changes involving the chest. IMPRESSION: No acute abnormality is displayed.
--- NOTE | 2024-02-24 12:38 | EKG ---
Test Date: 2024-02-21 Test Time: 13:33:50 Platform Material Handling Supervisor: JOSE MEASUREMENT RESULTS: Intervals: Rate: 70 VT: 194 QRSD: 116 QT: 400 QTc: 432 Winn: P: 68 VT: 194 QRS: -4 T: 119 INTERPRETIVE STATEMENTS: Normal sinus rhythm Possible Anterior infarct, age undetermined ST & T wave abnormality, consider lateral ischemia Abnormal ECG Compared to ECG 06/21/2023 14:03:26 First degree AV block no longer present Myocardial infarct finding still present ST (T wave) deviation still present Possible ischemia still present Electronically Signed On 02-24-24 12:37:06 CDT by Alexandro Nicole
[2024-02-25] MEDS: NA CHLORIDE 0.9% 500 ML ONE (12:23)
[2024-02-25] MEDS ORDERED: HEPA 1000U/500MLS 2,000 UNIT/1,000 ML BAG IV ONE (15:18)
[2024-02-25] MEDS ORDERED: HEPARIN 10,000 UNIT/10 ML VIAL IV ONE (15:19)
[2024-02-25] MEDS ORDERED: LIDOCAINE 1% 20 ML MDV ONE (15:19)
[2024-02-25] MEDS ORDERED: ATROPINE SULF 1 MG/10 ML SYR IV ONE (15:19)
[2024-02-25] MEDS ORDERED: MIDAZOLAM HCL 2 MG/2 ML INJ ONE (15:19)
[2024-02-25] MEDS ORDERED: VERAPAMIL HCL 10 MG/4 ML VIAL IV ONE (15:19)
[2024-02-25] MEDS ORDERED: HEPARIN 5000 UNIT/ML 1 ML VIAL ONE (15:20)
[2024-02-25] MEDS ORDERED: CLOPIDOGREL 75 MG TABLET ONE (15:20)
[2024-02-25] MEDS ORDERED: TICAGRELOR 90 MG TABLET PO ONE (15:20)
[2024-02-25] MEDS ORDERED: ASPIRIN 325 MG TAB ONE (15:20)
[2024-02-25] MEDS ORDERED: FENTANYL CITR 100 MCG/2 ML ONE (15:21)
[2024-02-25 19:30] VITALS: BP 155/74; O2SAT 96
--- NOTE | 2024-02-26 04:25 | OP ---
Date of Procedure: 02/25/2024 Surgeon: BENSON OLMSTEAD Procedures Performed: 1.Selective coronary angiogram with bypass graft study. 2.Left heart catheterization. 3.Right heart catheterization. Indication: Aortic valve stenosis evaluation. Access: 1.Right common femoral artery 6-Beninese, closed with 6-Beninese Angio-Seal. 2.Right IJ 7-Beninese, closed with manual pressure. Complications: None. Bleeding: Less than 50 mL. Anesthesia: Total sedation time was 1 hour and 20 minutes, used fentanyl and versed. Description Of Procedure: After risks, benefits, and alternatives were explained, patient agreed to procedure and signed informed consent. The patient was brought into cardiac catheterization laborato , prepped and draped in usual sterile fashion. Then, I accessed right IJ using micropuncture kit a nd ultrasound guidance, and placed a 7-Beninese Ely sheath and then I accessed the right common fe moral artery. I used a micropuncture kit, ultrasound guidance, and fluoroscopy, and placed 6-Beninese Ely sheath. Then, I took a balloon tipped 7-Beninese swan catheter through the IJ access into the right atrium, right ventricle, pulmonary artery, wedge and obtained waveform and pressures and then obtained a thermodilutional cardiac output. Then, removed the Armstrong. Then, I took a 6-Beninese JL4 cat heter through the femoral access into the aortic root, engaged left main, took standard views and the n exchanged for 6-Beninese JR4 catheter, engaged the RCA, SVG to RCA, SVG to OM, and LOREDO to LAD, took standard views and then crossed the aortic valve and sent the Ty catheter, did simultaneous jackie surements of the aorta and the LV and pullback did not show any significant gradient. Then, removed the catheter. Sheath in the groin was removed and placed 6-Beninese Angio-Seal for closure. Good hemo stasis. The right IJ sheath was removed and manual pressure was used for closure with good hemostasi s. Findings: 1.Left main is normal. 2.LAD: Proximal segment luminal irregularities. He has mid LAD stent that is patent with 30% ISR. There is competitive flow to the LOREDO. Diagonal branch 1 is jailed, about 90%, but small vessel. 3.Left circumflex: HOOKER LASTER ostially. 4.RCA: HOOKER LASTER proximally. Bypass Graft Study: 1.Occluded SVG to RCA. 2.Occluded SVG to OM. 3.Widely patent LOREDO to LAD, but the LAD does have significant disease. Right Heart Catheterization Numbers: RA pressure was 8, RV pressure was 36/3, mean of 10, PA pressur e is 35/14, mean of 24. Pulmonary wedge pressure was 15. LVEDP was 15-20 and mean gradient across a ortic valve was 20 mmHg. Cardiac output average was 4.5 L/minute and the aortic valve area was 0.89 sq cm. Conclusions: 1.Severe coronary artery disease with occluded SVG graft to RCA and OM, both arteries 100% occluded and the only functional artery is the LAD. The LOREDO is patent. 2.Severe low-flow low-gradient aortic valve stenosis. Recommendation: Proceed with TAVR. /MORENITA Voice ID: [id number] Report ID: [id number]
== END 2024-02-25 19:30 | disposition home or self-care (01) ==
LOC: PRE 12:18
PROVIDERS: ATTEND Internal Medicine
DX: I35.0 Nonrheumatic aortic (valve) stenosis (principal); I25.10 Atherosclerotic heart disease of native coronary artery without angina pectoris; I25.810 Atherosclerosis of coronary artery bypass graft(s) without angina pectoris; I25.82 Chronic total occlusion of coronary artery; T82.855A Stenosis of coronary artery stent, initial encounter; I11.0 Hypertensive heart disease with heart failure; I50.22 Chronic systolic (congestive) heart failure; I25.5 Ischemic cardiomyopathy; I73.9 Peripheral vascular disease, unspecified; I65.23 Occlusion and stenosis of bilateral carotid arteries; E11.9 Type 2 diabetes mellitus without complications; E78.5 Hyperlipidemia, unspecified; Z79.82 Long term (current) use of aspirin; Z79.02 Long term (current) use of antithrombotics/antiplatelets; Z79.899 Other long term (current) drug therapy; Z82.49 Family history of ischemic heart disease and other diseases of the circulatory system
CPT/HCPCS: 93005; 85025; 80048; 36415; 85610; 85730; 71046; 93461; 76937; C1893; Q9966; C1760; G0269; J1644; J2003; J2250; J3010; J7040; 93458; 99152; J0461